=== PATIENT | male | born 1990 | race Caucasian/White ===

== ENCOUNTER 2018-12-18 10:17 | Emergency (ER) | payer SELFPAY ==
--- NOTE | 2018-12-18 10:26 | XR_ITS ---
XR forearm RT 2V HISTORY: Right arm pain and swelling ITS.REASON: pain ORDERING PHYSICIAN: Linh Sims APRN PATIENT AGE: 28 years COMPARISON: None FINDINGS: No obvious fracture, dislocation, lytic change or blastic change. Normal mineralization. Unremarkable soft tissues IMPRESSION: Negative forearm
[2018-12-18 10:27] VITALS: BP 122/81; PULSE 88; RESP 16; TEMP 36.6; O2SAT 97; BMI 20.7
--- NOTE | 2018-12-18 10:38 | HMH.EDUTC ---
[facility] [place]: Forearm injury Qualifiers: Encounter type: initial encounter Laterality: right Qualified Code(s): S59.911A - Unspecified injury of right forearm, initial encounter Disposition: Home, Self-Care Condition on Discharge: Good Instructions: How to Apply an Alton Wrap, Muscle Strain, DI for Forearm Muscle Strain, DI for Muscle Strain Additional Instructions: Rest, compress (with alton wrap) and elevate arm to help with pain and swelling *Over the counter motrin and/or Tylenol as directed on package for pain Do not stress arm or throw any softball until seen by Dr Britton and cleared to do so No heavy lifting until seen by Dr Britton Return if needed APPOINTMENT SundayNovember AT [address] [facility] Follow up with family doctor if needed If any life threatening symptoms straight to ER Referrals: Provider,MD Leanna [Primary Care Provider] - Marlyn Britton MD [Physician] - (Appointment SundayDecember 20 at [address] in Orth[address]ics with Dr Britton) Forms: Work/School Release Time of Disposition: 11:12 Medical Decision Making - M[place] Inquiry Pt receiving controlled substance: No Mulu[place] was queried for this patient: No Vital Signs: 12/18/18 10:27 Temperature 97.8 F Temperature Source Oral Pulse Rate [Right Radial] 88 Respiratory Rate 16 Blood Pressure [Right Arm] 122/81 Blood Pressure Mean [Right Arm] 94 02 Sat by Pulse Oximetry 97 - Radiology Data #1 Image Reviewed: Yes I have reviewed radiologist's interpretation IMPRESSION: Negative forearm - Physician Consults Physician Consulted: Austin Time: 11:07 Reason -: Orthopedic Eval/Care Comment/Response: Spoke with Dr Britton about patient and findings upon examination and agreed Patient to follow up with Dr Britton on Sunday morning in the office at 830 [facility] [place] - General Stated complaint: Rt arm pain Time Seen by Provider: 12/18/18 10:39 Mode of Arrival: Ambulatory Source of Information: Patient Limitations: No Limitations Description of Symptoms (Recalled from Triage Doc. 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 State that it has been swelling on and off State that today he noticed it looked bruised and was still hurting so he cam in to get it checked out State that he doesn't recall doing anything to hurt it but not sure. - Related Data Previous Rx's Medication Instructions Recorded quetiapine 100 mg tablet 100 mg PO QHS #30 tab 09/23/18 quetiapine 100 mg tablet 100 mg PO QHS #90 tab 10/17/18 Allergies Allergy/AdvReac Type Severity Reaction Status Date / Time No Known Allergies Allergy Verified 10/17/18 10:15 - Worker's Comp Is this a Worker's Comp case?: No [facility] History - Hepatitis A Screen Drug use history?: No High risk sexual behaviors?: No History of sexually transmitted infection?: No Currently employed?: No Childcare worker?: No Do you have indoor plumbing?: Yes Do you have electricity?: Yes Attestation statement:: This patient has been screened for Hepatitis A risk factors. I have reviewed the patient's past medical history: Yes Medical History: Denies:: Cancer, Diabetes Mellitus Type 1, Diabetes Mellitus Type 2, MRSA Amputation: No - Social History Smoking Status: Current every day smoker Tobacco Type: cigarettes # Packs/Day (cigarettes): 1
--- NOTE | 2018-12-18 10:44 | ED_ITS ---
[facility] [place]: Forearm injury Qualifiers: Encounter type: initial encounter Laterality: right Qualified Code(s): S59.911A - Unspecified injury of right forearm, initial encounter Disposition: Home, Self-Care Condition on Discharge: Good Instructions: How to Apply an Alton Wrap, Muscle Strain, DI for Forearm Muscle Strain, DI for Muscle Strain Additional Instructions: Rest, compress (with alton wrap) and elevate arm to help with pain and swelling *Over the counter motrin and/or Tylenol as directed on package for pain Do not stress arm or throw any softball until seen by Dr Britton and cleared to do so No heavy lifting until seen by Dr Britton Return if needed APPOINTMENT SundayNovember AT [address] [facility] Follow up with family doctor if needed If any life threatening symptoms straight to ER Referrals: Provider,MD Leanna [Primary Care Provider] - Marlyn Britton MD [Physician] - (Appointment SundayDecember 20 at [address] Orth[address]ics with [address] Britton) Forms: Work/School Release Time of Disposition: 11:12 Medical Decision Making - [place] Inquiry Pt receiving controlled substance: No Mulugeta was queried for this patient: No Vital Signs: 12/18/18 10:27 Temperature 97.8 F Temperature Source Oral Pulse Rate [Right Radial] 88 Respiratory Rate 16 Blood Pressure [Right Arm] 122/81 Blood Pressure Mean [Right Arm] 94 02 Sat by Pulse Oximetry 97 - Radiology Data #1 Image Reviewed: Yes I have reviewed radiologist's interpretation IMPRESSION: Negative forearm - Physician Consults Physician Consulted: Austin Time: 11:07 Reason -: Orthopedic Eval/Care Comment/Response: Spoke with Dr Britton about patient and findings upon examination and agreed Patient to follow up with Dr Britton on Sunday morning in the [place] 830 [facility] [place] General Stated complaint: Rt arm pain Time Seen by Provider: 12/18/18 10:39 Mode of Arrival: Ambulatory Source of Information: Patient Limitations: No Limitations Description of Symptoms (Recalled from Triage Doc. 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 State that it has been swelling on and off State that today he noticed it looked bruised and was still hurting so he cam in to get it checked out State that he doesn't recall doing anything to hurt it but not sure. - Related Data Previous Rx's Medication Instructions Recorded quetiapine 100 mg tablet 100 mg PO QHS #30 tab 09/23/18 quetiapine 100 mg tablet 100 mg PO QHS #90 tab 10/17/18 Allergies Allergy/AdvReac Type Severity Reaction Status Date / Time No Known Allergies Allergy Verified 10/17/18 10:15 - Worker's Comp Is this a W
[2018-12-18 11:17] VITALS: BP 122/81; PULSE 88; RESP 16; TEMP 36.6; O2SAT 97
== END 2018-12-18 11:18 | disposition home or self-care (01) ==
PROVIDERS: Emergency Provider Nurse Practitioner
DX: S59.911A Unspecified injury of right forearm, initial encounter (principal); X50.3XXA Overexertion from repetitive movements, initial encounter; Y93.64 Activity, baseball; Y92.328 Other athletic field as the place of occurrence of the external cause; F17.210 Nicotine dependence, cigarettes, uncomplicated
CPT/HCPCS: 73090; 99201

== ENCOUNTER 2021-03-18 09:54 | Emergency (ER) | payer OTHER, SELFPAY ==
[2021-03-18 10:25] VITALS: BP 115/54; PULSE 81; RESP 18; TEMP 36.8; O2SAT 98; BMI 21.7
--- NOTE | 2021-03-18 11:23 | HMH.EDUTC ---
[facility] [place] Disposition Clinical Impression: Viral syndrome Disposition: Home, Self-Care Condition on Discharge: Good Instructions: DI for Viral Syndrome, Ondansetron, Brompheniramine, DI for COVID-19 (Suspected or Confirmed ), Preventing the Spread of Coronavirus Discharge Instructions Additional Instructions: Drink plenty of fluids. Take tylenol or ibuprofen for pain or fever. Take the medications as directed. Finsh the amoxicillin that you are on. Follow up with your regular doctor. GO TO THE ER FOR ANY WORSENING SYMPTOMS Quarantine until you know the results of your covid-19 test. If it is positive, the health department should call you and give you further instructions about your length of Quarantine and other things. Notify your school or workplace of your results and follow their instructions regarding return to work/school. Prescriptions: Brompheniramine/Pseudoephed/Dm [Bromfed Dm Cough Syrup] 5 ml PO Q6HP PRN #240 ml PRN Reason: Cough Transmission Status: Received by [facility] Ondansetron [Zofran 4mg ODT] 4 mg PO DAILYP PRN #12 tab PRN Reason: Nausea Transmission Status: Received by [facility] Referrals: Provider,Referral, MD [Primary Care Provider] - Forms: Work/School Release Time of Disposition: 11:50 Medical Decision Making - Medical Records Medical records reviewed: Yes: I reviewed the patient's medical records. - [place] Inquiry Pt receiving controlled substance: No Vital Signs: 03/18/21 10:25 03/18/21 11:53 Temperature 98.2 F 98.2 F Temperature Source Oral Pulse Rate 81 Pulse Rate [Right Radial] 81 Respiratory Rate 18 18 Blood Pressure 115/54 L Blood Pressure [Right Arm] 115/54 L Blood Pressure Mean [Right Arm] 74 Blood Pressure Source [Right Arm] Automatic Cuff Blood Pressure Position [Right Arm] Sitting 02 Sat by Pulse Oximetry 98 Oxygen Delivery Method Room Air - Lab Data Lab Results 03/18/21 11:03: Chlamy pneumoniae PCR Not detected, Adenovirus (PCR) Not detected, B. pertussis DNA (PCR) Not detected, Coronavirus OC43 (PCR) Not detected, Coronavirus HKU1 (PCR) Not detected, Coronavirus 229E (PCR) Not detected, SARS-CoV-2 (PCR) Not detected, Coronavirus NL63 (PCR) Not detected, Human Metapneumovir PCR Not detected, Influenza A (H1) PCR Not detected, Influ A (H1N1/09) PCR Not detected, Influenza A (H3) PCR Not detected, Influenza Type A (PCR) Not detected, Influenza Type B (PCR) Not detected, M. pneumoniae (PCR) Not detected, Parainfluenza 1 (PCR) Not detected, Parainfluenza 2 (PCR) Not detected, Parainfluenza 3 (PCR) Not detected, Parainfluenza 4 (PCR) Not detected, RSV (PCR) Not detected, Entero/Rhino (PCR) Not detected 03/18/21 11:22: Strep Scn Rapid Clinic Negative [facility] [place] HPI - General Stated complaint: congestion, soa, body aches Time Seen by Provider: 03/18/21 11:23 Mode of Arrival: Ambulatory Source of Information: Patient Limitations: No Limitations Description of Symptoms (Recalled from Triage Doc. by RN): C/O congestion, muscle aches, SOA, reduced taste, diarrhea since Sunday HEENT Symptoms (Recalled from RN notes): Yes (congestion, reduced taste) Resp Symptoms (Recalled from RN notes): Yes (SOA) Skin Symptoms (Recalled from RN notes): No MS Symptoms (Recalled from RN notes): Yes (muscle aches) Functional Status (Recalled from RN notes): n/a - History of Present Illness Provider Complaint: He states that he started feeling bad earlier this week. At first he was having some chilling, body aches, and sinus pressure. He had a negative rapid covid-19 test done at home on 03/15. He then went to the clinic at [facility] and was diagnosed with a possible sinus infection. He was started on amoxicillin then. He states that since then, his body aches have worsened and he has began having diarrhea. He has a history of IBS, so he is not sure the diarrhea is very abnormal for him. He denies any documented fever. He has had chillin
[2021-03-18 11:36] LABS: Adenovirus,PCR Not Detected (NotDetected); Bordetella Pertussis Not Detected (NotDetected); Chlamydophila Pneumoniae, PCR Not Detected (NotDetected); Coronavirus 19, PCR Not Detected (NotDetected); Coronavirus 229E Not Detected (NotDetected); Coronavirus NL63 Not Detected (NotDetected); Coronavirus OC43 Not Detected (NotDetected); Coronovirus HKU1,PCR Not Detected (NotDetected); Human Metapneumovirus Not Detected (NotDetected); Influenza A, PCR Not Detected (NotDetected); Influenza AH1, 2009 Not Detected (NotDetected); Influenza AH1, PCR Not Detected (NotDetected); Influenza AH3,PCR Not Detected (NotDetected); Influenza B, PCR Not Detected (NotDetected); Mycoplasma Pneumoniae, PCR Not Detected (NotDetected); Parainfluenza 1, PCR Not Detected (NotDetected); Parainfluenza 2, PCR Not Detected (NotDetected); Parainfluenza 3, PCR Not Detected (NotDetected); Parainfluenza 4, PCR Not Detected (NotDetected); Respiratory Syncytial Virus Not Detected (NotDetected); Rhinovirus/Enterovirus Not Detected (NotDetected)
[2021-03-18 11:53] VITALS: BP 115/54; PULSE 81; RESP 18; TEMP 36.8; O2SAT 98
[2021-03-19 09:56] LABS: UTC Strep Screen (Rapid) Negative (Negative)
[2021-03-19 19:01] LABS: UTC Influenza A Antigen Negative (Negative)
[2021-03-19 19:02] LABS: UTC Influenza B Antigen Negative (Negative)
== END 2021-03-18 11:55 | disposition home or self-care (01) ==
PROVIDERS: Emergency Provider Nurse Practitioner Family
DX: B34.9 Viral infection, unspecified (principal); K58.0 Irritable bowel syndrome with diarrhea; F17.210 Nicotine dependence, cigarettes, uncomplicated; Z20.822 Contact with and (suspected) exposure to COVID-19
CPT/HCPCS: 87581; 87632; 87798; 87804; 87880; 99203; C9803; G0463; U0003; U0005

== ENCOUNTER 2021-08-02 10:28 | Emergency (ER) | payer OTHER, SELFPAY ==
[2021-08-02 12:00] VITALS: BP 116/79; PULSE 63; RESP 19; TEMP 37.1; O2SAT 98; BMI 21.4
[2021-08-02 12:30] LABS: UTC Influenza A Antigen Negative (Negative); UTC Influenza B Antigen Negative (Negative)
--- NOTE | 2021-08-02 12:31 | HMH.EDUTC ---
[facility] [place] Clinical Impression: Viral syndrome Disposition: Home, Self-Care Condition on Discharge: Good Instructions: DI for Viral Syndrome, DI for COVID-19 (Suspected or Confirmed ), Preventing the Spread of Coronavirus Discharge Instructions Additional Instructions: *Monitor Temp, Over the counter Motrin or Tylenol as directed/as needed Tylenol every 4 hours and Motrin every 6 hours (as long as your family doctor has told you that you can take it) for fever or pain. and straight to ER if unable to lower temp less than 101.0 after medication given *Warm salt water gargles may help to soothe the throat *Throat Lozenges *Warm fluids like tea with honey may help to soothe the throat *Sleep elevated *Humidifier/Vaporizer *Bromfed may cause drowsiness. Know how it effects you (your child) before driving, caring for small child, or sending your child to school. Not other antihistamines/allergy medications while taking bromfed Follow up IMMEDIATELY for new or worsening symptoms or no Noticeable improvement over the next 48-72 hours. 911 for difficulty breathing or swallowing You were tested for today for COVID19 your test result should be back in the next 24-72 hours, you may check your results on the [facility] my Health portal if you have trouble logging on you may call support to help you If you are positive someone from the hospital will be calling you Make sure to take your Vitamins Vit. C Vit D and Zinc if you can take them Prescriptions: Brompheniramine/Pseudoephed/Dm [Bromfed Dm Cough Syrup] 5 - 10 ml PO Q46H PRN #200 ml PRN Reason: Cough Transmission Status: Pending to [facility] Referrals: Provider,Referral, [Primary Care Provider] - As needed Forms: Work/School Release Time of Disposition: 12:38 Medical Decision Making - Mulu[place]a Inquiry Pt receiving controlled substance: No Mulugeta was queried for this patient: No Vital Signs: 08/02/21 12:00 Temperature 98.8 F Temperature Source Oral Pulse Rate [Right Brachial] 63 Respiratory Rate 19 Blood Pressure [Right Arm] 116/79 Blood Pressure Mean [Right Arm] 91 Blood Pressure Source [Right Arm] Automatic Cuff Blood Pressure Position [Right Arm] Sitting 02 Sat by Pulse Oximetry 98 Oxygen Delivery Method Room Air - Lab Data Lab results reviewed: Yes: I reviewed the patient's lab results. Lab Results 08/02/21 12:15: Influenza Type A Ag Negative, Influenza Type B Ag Negative Orders (Tests/Meds): ORDERS Category Date Time Status Covid-19 Nasal PCR ([facility]) Routine Lab 08/02/21 12:15 Ordered [facility] [place] HPI - General Stated complaint: cough, diarrhea, congestion, body aches Time Seen by Provider: 08/02/21 12:31 Mode of Arrival: Ambulatory Source of Information: Patient Limitations: No Limitations Description of Symptoms (Recalled from Triage Doc. by RN): PATIENT C/O CHILLS, BODY ACHES, COUGH, LOW-GRADE FEVER, CONGESTION, SINUS PRESSURE, DIARRHEA AND NAUSEA X 3 DAYS HEENT Symptoms (Recalled from RN notes): Yes Resp Symptoms (Recalled from RN notes): No Skin Symptoms (Recalled from RN notes): No MS Symptoms (Recalled from RN notes): No Functional Status (Recalled from RN notes): WNL - History of Present Illness Provider Complaint: Patient states that he started feeling bad about 3 days ago States that he has been having sinus congestion, bodyaches, chills, headache, diarrhea and low grade fever on and off State that today he was feeling achy all over and still not feeling well and felt like he may have the flu so he came in to get checked and tested - Related Data Previous Rx's Medication Instructions Recorded Brompheniramine/Pseudoephed/Dm 5 - 10 ml PO Q46H PRN #200 ml 08/02/21 [Bromfed Dm Cough Syrup] Allergies Allergy/AdvReac Type Severity Reaction Status Date / Time No Known Allergies Allergy Verified 03/15/21 13:19 - Worker's Comp Is this a Worker's Comp case?: No [facility] History - Hepatitis A Scree
[2021-08-02 12:40] VITALS: BP 116/79; PULSE 63; RESP 19; TEMP 37.1; O2SAT 98
== END 2021-08-02 12:43 | disposition home or self-care (01) ==
PROVIDERS: Emergency Provider Nurse Practitioner
DX: R05.9 Cough, unspecified (principal); Z20.822 Contact with and (suspected) exposure to COVID-19; F17.210 Nicotine dependence, cigarettes, uncomplicated; B34.9 Viral infection, unspecified; R19.7 Diarrhea, unspecified
CPT/HCPCS: 87804; 99202; C9803; G0463; U0003; U0005

== ENCOUNTER 2022-02-03 11:43 | Emergency (ER) | payer OTHER, SELFPAY ==
[2022-02-03 11:45] VITALS: BP 133/72; PULSE 76; RESP 19; TEMP 36.6; O2SAT 98; BMI 23.1
--- NOTE | 2022-02-03 12:02 | HMH.EDUTC ---
[facility] [place] Disposition Clinical Impression: Sinusitis Qualifiers: Sinusitis location: unspecified location Chronicity: unspecified Qualified Code(s): J32.9 - Chronic sinusitis, unspecified Disposition: Home, Self-Care Condition on Discharge: Good Instructions: Sinusitis, DI for Sinusitis Additional Instructions: *Monitor Temp, Over the counter Motrin or Tylenol as directed/as needed Tylenol every 4 hours and Motrin every 6 hours (as long as your family doctor has told you that you can take it) for fever or pain. and straight to ER if unable to lower temp less than 101.0 after medication given *Warm salt water gargles may help to soothe the throat *Throat Lozenges *Warm fluids like tea with honey may help to soothe the throat *Sleep elevated *Humidifier/Vaporizer Take medication as prescribed Return if needed Follow up IMMEDIATELY for new or worsening symptoms or no Noticeable improvement over the next 48-72 hours. 911 for difficulty breathing or swallowing Prescriptions: methylPREDNISolone [Medrol 4mg tab] 4 mg PO DIRECTED #21 tab Transmission Status: Pending to [facility] Azithromycin [Z-Froy 250mg Tab] 250 mg PO DIRECTED #6 tab Transmission Status: Pending to [id number] Referrals: Provider,Referral, MD [Primary Care Provider] - As needed Forms: Work/School Release Medical Decision Making - M[place] Inquiry Pt receiving controlled substance: No Mulu[place] was queried for this patient: No Vital Signs: 02/03/22 11:45 Temperature 97.8 F Temperature Source Oral Pulse Rate [Right Brachial] 76 Respiratory Rate 19 Blood Pressure [Right Arm] 133/72 Blood Pressure Mean [Right Arm] 92 Blood Pressure Source [Right Arm] Automatic Cuff Blood Pressure Position [Right Arm] Sitting 02 Sat by Pulse Oximetry 98 Oxygen Delivery Method Room Air [facility] [place] HPI - General Stated complaint: nasal congestion, cough Time Seen by Provider: 02/03/22 12:02 Mode of Arrival: Ambulatory Source of Information: Patient Limitations: No Limitations Description of Symptoms (Recalled from Triage Doc. by RN): PATIENT C/O CONGESTION AND COUGH SINCE YESTERDAY HEENT Symptoms (Recalled from RN notes): No Resp Symptoms (Recalled from RN notes): Yes Skin Symptoms (Recalled from RN notes): No MS Symptoms (Recalled from RN notes): No Functional Status (Recalled from RN notes): WNL - History of Present Illness Provider Complaint: Patient states that he has been having sinus pain and pressure on and off for over a week that got worse yesterday along with cough for several days State that today he was having pressure behind his eyes and drainage in the back of his throat States that he wanted to come in and get checked out States that he took two COVID test and the was negative - Related Data Previous Rx's Medication Instructions Recorded Azithromycin [Z-Froy 250mg Tab] 250 mg PO DIRECTED #6 tab 02/03/22 methylPREDNISolone [Medrol 4mg 4 mg PO DIRECTED #21 tab 02/03/22 tab] Allergies Allergy/AdvReac Type Severity Reaction Status Date / Time No Known Allergies Allergy Verified 03/15/21 13:19 - Worker's Comp Is this a Worker's Comp case?: No [facility] History - Hepatitis A Screen Attestation statement:: This patient has been screened for Hepatitis A risk factors. I have reviewed the patient's past medical history: Yes Medical History: Denies:: Cancer, Diabetes Mellitus Type 1, Diabetes Mellitus Type 2, MRSA Other Surgeries: Yes: No Previous Surgery Amputation: No - Social History Smoking Status: Current every day smoker Tobacco Type: cigarettes # Packs/Day (cigarettes): 1 Alcohol Intake: never Alcohol Intake Frequency:: holidays/special occasions only Substance Use Type: marijuana Occupational Status: other Family Hx:: No significant family history ROS Obtained: Yes All systems reviewed & no additional complaints, Yes Systems reviewed as appropriate & no additional complaints - Con
[2022-02-03 12:08] VITALS: BP 133/72; PULSE 76; RESP 19; TEMP 36.6; O2SAT 98
== END 2022-02-03 12:15 | disposition home or self-care (01) ==
PROVIDERS: Emergency Provider Nurse Practitioner
DX: J32.9 Chronic sinusitis, unspecified (principal)
CPT/HCPCS: 99212; G0463

== ENCOUNTER 2022-04-10 10:51 | Emergency (ER) | payer OTHER, SELFPAY ==
[2022-04-10 10:58] VITALS: BP 149/77; PULSE 88; RESP 17; TEMP 36.6; O2SAT 100; BMI 19.8
[2022-04-10 11:03] VITALS: BP 149/77; PULSE 88; RESP 17; TEMP 36.6; O2SAT 100; BMI 19.7
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
[2022-04-10 11:59] VITALS: BP 149/77; PULSE 88; RESP 17; TEMP 36.6
== END 2022-04-10 12:01 | disposition home or self-care (01) ==
LOC: ER 11:00 → UTC 11:00
PROVIDERS: Emergency Provider Nurse Practitioner
DX: M54.41 Lumbago with sciatica, right side (principal); F17.210 Nicotine dependence, cigarettes, uncomplicated; Z79.1 Long term (current) use of non-steroidal anti-inflammatories (NSAID); Z79.52 Long term (current) use of systemic steroids
CPT/HCPCS: 96372; 99213; G0463

== ENCOUNTER 2022-05-04 11:00 | Outpatient (RCR) | payer OTHER, SELFPAY ==
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
== END 2022-05-04 11:05 | disposition home or self-care (01) ==
LOC: PT 11:00
PROVIDERS: Visit Provider Nurse Practitioner Family
DX: M54.41 Lumbago with sciatica, right side (principal)
CPT/HCPCS: 20560; 97010; 97012; 97014; 97110; 97140; 97163; G0283

== ENCOUNTER 2022-05-25 19:54 | Emergency (ER) | payer OTHER, SELFPAY ==
[2022-05-25 19:56] VITALS: BP 132/66; PULSE 115; RESP 18; TEMP 38.2; O2SAT 97; BMI 20.7
--- NOTE | 2022-05-25 21:04 | HMH.EDBACK ---
Discharge Plan Disposition Patient Disposition: Home, Self-Care Chief Complaint: Back Pain/Injury Prescriptions Prescriptions: No Action azithromycin 250 MG tablet 250 mg PO DIRECTED Qty: 6 0RF Rx Instructions: Take two (2) tablets on day #1, then one (1) tablet day #2 thru #5 methylprednisolone 4 MG tablet 4 mg PO DIRECTED Qty: 21 0RF Rx Instructions: Take as directed on package instructions ibuprofen 600 mg tablet 600 mg PO Q6HP PRN (Reason: Moderate Pain) Qty: 20 0RF methylprednisolone [Medrol (Froy)] 4 mg tablets,dose pack See Rx Instructions .Route .COMPLEX 6 Days Qty: 21 0RF Rx Instructions: taper pack; Referrals Follow up/Referrals: Donavon Stanley MD [Primary Care Provider] - See instructions Clinical Impressions Clinical Impression: Lumbar radiculopathy, COVID-19 Instructions Patient Instructions: DI for Low Back Pain, DI for COVID-19 (Suspected or Confirmed ) Discharge ED Provider: Mike Henderson Back Pain HPI General Chief Complaint: Back Pain/Injury Stated Complaint: AO05/25/22 fall back pain Time Seen by Provider: 05/25/22 21:04 Mode of Arrival: Ambulatory Source of Information: Patient and Medical Record Limitations: No Limitations Description of Symptoms (Recalled from ER Triage Doc. by RN): pt states that he has had sciatic pain since apr and he has had another flare up tonight and wants to know what is going on with his back because he can not straighten up without intense pain History of Present Illness HPI Narrative: pt with ongoing back pain for weeks and has pending mri on sunday- pt with no fever/rash or cauda equina sx- does rad to lower ext - no acute trauma - has seen [facility] and pcp - MD Complaint: back pain Onset (ago): day(s) Duration: intermittent Similar Symptoms Previously: Yes Location: lumbar spine Severity: severe Radiation: left leg Associated symptoms: denies other symptoms Related Data Previous Rx's Medication Instructions Recorded azithromycin 250 mg tablet 250 mg PO DIRECTED #6 tabs 02/03/22 methylprednisolone 4 mg tablet 4 mg PO DIRECTED #21 tabs 02/03/22 ibuprofen 600 mg tablet 600 mg PO Q6HP PRN Moderate Pain 04/10/22 #20 tabs methylprednisolone 4 mg tablets in See Rx Instructions .Route 10/10/22 a dose pack (Medrol (Froy)) .COMPLEX 6 days #21 tabs Allergies Allergy/AdvReac Type Severity Reaction Status Date / Time No Known Allergies Allergy Verified 04/10/22 11:10 [facility] Social History Smoking Status: Current every day smoker tobacco type: cigarettes packs per day: 1 alcohol intake: never substance use type: marijuana current occupational status: other Travel in the last 8 weeks: None number of children: 1 ROS Obtained: Yes All systems reviewed & no additional complaints except as documented Physical Exam General General appearance: alert Head Head exam: normocephalic Eye Eye exam: Present PERRL and EOMI ENT ENT exam: Present mucous membranes moist Neck Neck exam: Present trachea midline Respiratory Respiratory exam: Absent respiratory distress Cardiovascular Cardiovascular exam: Present regular rate Abdominal Exam Abdominal exam: Present soft; Absent tenderness Extremities Exam Extremities exam: Present full ROM Back Exam Back exam: Present tenderness Neurological Exam Neurological exam: Present alert, oriented X3, CN II-XII intact and reflexes normal; Absent motor sensory deficit Psychiatric Psychiatric exam: Present normal affect Skin Skin exam: Absent rash Medical Decision Making Medical Records Medical records reviewed: Yes I reviewed the patient's medical records. [place] Inquiry Pt receiving controlled substance: No Vital Signs: 05/25/22 19:56 Temperature 100.7 F H Temperature Source Oral Pulse Rate [Left] 115 H Respiratory Rate 18 Blood Pressure [Right Arm] 132/66 Blood Pressure Mean [Right
[2022-05-25 21:12] LABS: Influenza A, PCR Not Detected (NotDetected); Influenza B, PCR Not Detected (NotDetected)
[2022-05-25 21:41] LABS: Coronavirus 19, PCR Detected (NotDetected)
[2022-05-25 21:57] VITALS: BP 130/70; PULSE 100; RESP 18; TEMP 37.8; O2SAT 97
== END 2022-05-25 22:01 | disposition home or self-care (01) ==
PROVIDERS: Emergency Provider Emergency Medicine; PCP Internal Medicine Adolescent Medicine
DX: U07.1 COVID-19 (principal); M54.16 Radiculopathy, lumbar region; M54.40 Lumbago with sciatica, unspecified side; F17.210 Nicotine dependence, cigarettes, uncomplicated; Z79.1 Long term (current) use of non-steroidal anti-inflammatories (NSAID); Z79.52 Long term (current) use of systemic steroids; W19.XXXA Unspecified fall, initial encounter
CPT/HCPCS: 99283; C9803; U0003; U0005

== ENCOUNTER → 2022-05-29 16:36 | Outpatient (CLI) | payer OTHER, SELFPAY ==
--- NOTE | 2022-05-29 16:41 | MR_ITS ---
PROCEDURE INFORMATION: Exam: MR Lumbar Spine Without Contrast Exam date and time: 05/29/2022 4:49 PM Age: 32 years old Clinical indication: Low back pain; Additional info: Acute bilateral low back pain with R sided sciatia. Low back pain. Right leg pain, numbness, and tingling. Symptoms [id number]. No injury or trauma. TECHNIQUE: Imaging protocol: Magnetic resonance imaging of the lumbar spine without contrast. COMPARISON: No relevant prior studies available. FINDINGS: Bones/joints: Heterogeneity of the osseous structures on T1 weighted sequence may reflect an element of red marrow reconversion or recruitment. No fracture. Normal alignment. Spinal cord: Visualized cord, conus medullaris and cauda equina are unremarkable without compression. L1-L2: No significant disc disease. No significant spinal canal stenosis. No neural foraminal stenosis. L2-L3: No significant disc disease. No significant spinal canal stenosis. No neural foraminal stenosis. L3-L4: No significant disc disease. No significant spinal canal stenosis. No neural foraminal stenosis. L4-L5: No significant disc disease. No significant spinal canal stenosis. No neural foraminal stenosis. L5-S1: Disc dehydration and loss of disc height. No significant spinal canal stenosis. Mild bilateral foraminal stenosis due to loss of disc height, posterolateral disc bulge and degenerative facet arthropathy. Posterolateral disc bulge may exert slight mass effect on the exiting L5 nerve roots. Soft tissues: Unremarkable. IMPRESSION: Mild bilateral foraminal stenosis at L5-S1. Posterolateral disc bulge may exert slight mass effect on the exiting L5 nerve roots. Heterogeneity of the osseous structures on T1 weighted sequence may reflect an element of red marrow reconversion or recruitment.
== END ==
LOC: RAD 16:37
PROVIDERS: Visit Provider Nurse Practitioner Family
DX: M54.41 Lumbago with sciatica, right side (principal)
CPT/HCPCS: 72148; 76376

== ENCOUNTER 2022-11-17 15:21 | Emergency (ER) | payer SELFPAY ==
[2022-11-17 15:24] VITALS: BP 131/83; PULSE 73; RESP 16; TEMP 36.9; O2SAT 98; BMI 21.5
[2022-11-17 15:36] VITALS: BP 131/83; PULSE 79; O2SAT 99
--- NOTE | 2022-11-17 15:51 | HMH.EDGENADL ---
Discharge Plan Disposition Patient Disposition: Home, Self-Care Prescriptions Prescriptions: New quetiapine [Seroquel] 50 mg tablet 50 mg PO DAILY 30 Days Qty: 30 0RF No Action azithromycin 250 MG tablet 250 mg PO DIRECTED Qty: 6 0RF Rx Instructions: Take two (2) tablets on day #1, then one (1) tablet day #2 thru #5 methylprednisolone 4 MG tablet 4 mg PO DIRECTED Qty: 21 0RF Rx Instructions: Take as directed on package instructions ibuprofen 600 mg tablet 600 mg PO Q6HP PRN (Reason: Moderate Pain) Qty: 20 0RF methylprednisolone [Medrol (Froy)] 4 mg tablets,dose pack See Rx Instructions .Route .COMPLEX 6 Days Qty: 21 0RF Rx Instructions: taper pack; Referrals Follow up/Referrals: Donavon Stanley MD [Primary Care Provider] - See instructions Activity Restrictions/Add. Instructions Additional Instructions/Restrictions: Please follow-up with John Logan on January 04 as previously instructed and return to the emergency department any suicidal thoughts homicidal thoughts or auditory or visual hallucinations Clinical Impressions Clinical Impression: Depression, Anxiety Discharge ED Provider: Marleny Quinteor General Adult HPI General Chief complaint: Psychiatric Symptoms Stated complaint: Needs Medication Time Seen by Provider: 11/17/22 15:51 Mode of Arrival: Ambulatory Source of Information: Patient Limitations: No Limitations Description of Symptoms (Recalled from ER Triage Doc. by RN): 32 yo M presents to ed for medication refill . pt reports that he has been in a dark place recently and has an appt scheduled with john logan on january 04. pt states in 2019 he was prescribed a medication from john that was for anxiety/depression. pt states he did not take medicaiton no longer than a few weeks. pt unsure of name of medicine. pt states that he does not have any suicidal plans but has had thoughts approx 1 month ago. pts SO at bedside. History of Present Illness HPI narrative: Patient is a 32-year-old male followed by John Logan for depression and anxiety and bipolar disorder presents today with request for medication refill. States that he has been followed for chronic symptoms since 2019. He was unsure as to exactly what medication he was started on but he states that he has had a lot of relationship issues recently and is having increasing depression and anxiety which has been affecting his family and that he would like to be restarted on his medication. He called her office today and then called Dr. Clements's office and they said to come to the emergency department. He has a appointment that is scheduled on January 04 for follow-up. He is currently not suicidal homicidal or having any auditory visual hallucinations. Related Data Previous Rx's Medication Instructions Recorded azithromycin 250 mg tablet 250 mg PO DIRECTED #6 tabs 02/03/22 methylprednisolone 4 mg tablet 4 mg PO DIRECTED #21 tabs 02/03/22 ibuprofen 600 mg tablet 600 mg PO Q6HP PRN Moderate Pain 04/10/22 #20 tabs methylprednisolone 4 mg tablets in See Rx Instructions .Route 04/10/22 a dose pack (Medrol (Froy)) .COMPLEX 6 days #21 tabs quetiapine 50 mg tablet (Seroquel) 50 mg PO DAILY 30 days #30 tabs 11/17/22 Allergies Allergy/AdvReac Type Severity Reaction Status Date / Time No Known Allergies Allergy Verified 04/10/22 11:10 [facility] Disclaimer: The information contained in this section may have been updated after the patient was seen, as this information can be updated by other users. Social History Smoking Status: Current every day smoker tobacco type: cigarettes packs per day: 1 alcohol intake: never substance use type: marijuana current occupational status: other Travel in the last 8 weeks: None number of children: 1 ROS Obtained: Yes All systems reviewed & no additional complaints except as documented P
[2022-11-17 16:00] VITALS: PULSE 67; O2SAT 97
[2022-11-17 16:30] VITALS: PULSE 65; O2SAT 96
[2022-11-17 16:39] VITALS: BP 131/83; PULSE 79; RESP 16; TEMP 36.9
== END 2022-11-17 16:40 | disposition home or self-care (01) ==
PROVIDERS: Emergency Provider Student in an Organized Health Care Education/Training Program; PCP Internal Medicine Adolescent Medicine
DX: F31.9 Bipolar disorder, unspecified (principal); F41.9 Anxiety disorder, unspecified; F17.210 Nicotine dependence, cigarettes, uncomplicated
CPT/HCPCS: 99283; 99284

== ENCOUNTER 2022-11-25 20:35 | Emergency (ER) | payer SELFPAY ==
[2022-11-25] VITALS (7 sets, daily range): BP systolic 103–148; BP diastolic 67–76; PULSE 62–82; RESP 16–18; TEMP 37.1–37.2; O2SAT 94–98; BMI 21.8
[2022-11-25 20:48] LABS: Coronavirus 19, PCR Not Detected (NotDetected); Influenza A, PCR Not Detected (NotDetected); Influenza B, PCR Not Detected (NotDetected)
--- NOTE | 2022-11-25 20:54 | CT_ITS ---
PROCEDURE INFORMATION: Exam: CTA Chest With Contrast Exam date and time: 11/25/22 09:23 PM Age: 32 years old Clinical indication: Shortness of breath; Additional info: SOA TECHNIQUE: Imaging protocol: Computed tomographic angiography of the chest with contrast. Exam focused on the arteries. 3D rendering (Not supervised by radiologist): MIP and/or 3D reconstructed images were created by the technologist. Radiation optimization: All CT scans at this facility use at least one of these dose optimization techniques: automated exposure control; mA and/or kV adjustment per patient size (includes targeted exams where dose is matched to clinical indication); or iterative reconstruction. Contrast material: ISOVUE; Contrast volume: 70 ml; Contrast route: INTRAVENOUS (IV); REPORTING DATA: Count of CT and Cardiac NM exams in prior 12 months: This patient has received 0 known CTs and 0 known cardiac nuclear medicine studies in the 12 months prior to the current study. COMPARISON: CR XR CHEST 2V 11/25/22 09:09 PM FINDINGS: Pulmonary arteries: Normal. No pulmonary emboli. Aorta: Unremarkable. No aortic aneurysm. No aortic dissection. Lungs: Unremarkable. No consolidation. No masses. Pleural spaces: Unremarkable. No pneumothorax. No pleural effusion. Heart: Unremarkable. No cardiomegaly. No pericardial effusion. Lymph nodes: Unremarkable. No enlarged lymph nodes. Bones/joints: Unremarkable. No acute fracture. Soft tissues: Unremarkable. IMPRESSION: 1. No acute findings. 2. No CT evidence of pulmonary embolus.
[2022-11-25 21:01] LABS: Basophils % 0.5 % (0.1-2.0); Eosinophils # 0.2 K/mm3 (0.0-0.4); Eosinophils % 2.6 % (0.1-12.0); Hematocrit 48.4 % (42.0-52.0); Lymphocytes # 2.7 K/mm3 (0.7-4.5); Lymphocytes % 30.8 % (10-50); Mean Corpuscular HGB Conc 33.1 g/dL (31.8-35.4); Mean Corpuscular Hemoglobin 31.5 pg (27.0-31.2); Mean Corpuscular Volume 95.3 fl (80-94); Monocytes # 0.4 K/mm3 (0.1-1.0); Monocytes % 4.6 % (1.7-9.3); Neutrophils # 5.4 K/mm3 (1.8-7.8); Neutrophils % 61.4 % (37.0-80.0); Platelet Count 171 K/mm3 (142-424); Red Blood Count 5.08 M/mm3 (4.60-6.20); Red Cell Distribution Width 13.5 % (11.5-17.5); White Blood Count 8.8 K/mm3 (4.8-10.8)
--- NOTE | 2022-11-25 21:01 | XR_ITS ---
PROCEDURE INFORMATION: Exam: XR Chest Exam date and time: 11/25/22 09:09 PM Age: 32 years old Clinical indication: Shortness of breath; Additional info: SOA TECHNIQUE: Imaging protocol: Radiologic exam of the chest. Views: 2 views. COMPARISON: CR CXR2V XR chest 2V 02/22/18 10:24 AM FINDINGS: Lungs: Unremarkable. No consolidation. Pleural spaces: Unremarkable. No pleural effusion. No pneumothorax. Heart/Mediastinum: Unremarkable. No cardiomegaly. Bones/joints: Unremarkable. IMPRESSION: No acute findings.
--- NOTE | 2022-11-25 21:05 | HMH.EDSOB ---
Discharge Plan Disposition Patient Disposition: Home, Self-Care Prescriptions Prescriptions: New prednisone [prednisone] 20 mg tablet 20 mg PO BID Qty: 10 0RF levofloxacin 500 mg tablet 500 mg PO DAILY Qty: 7 0RF No Action azithromycin 250 MG tablet 250 mg PO DIRECTED Qty: 6 0RF Rx Instructions: Take two (2) tablets on day #1, then one (1) tablet day #2 thru #5 methylprednisolone 4 MG tablet 4 mg PO DIRECTED Qty: 21 0RF Rx Instructions: Take as directed on package instructions ibuprofen 600 mg tablet 600 mg PO Q6HP PRN (Reason: Moderate Pain) Qty: 20 0RF methylprednisolone [Medrol (Froy)] 4 mg tablets,dose pack See Rx Instructions .Route .COMPLEX 6 Days Qty: 21 0RF Rx Instructions: taper pack; quetiapine [Seroquel] 50 mg tablet 50 mg PO DAILY 30 Days Qty: 30 0RF Referrals Follow up/Referrals: Donavon Stanley MD [Primary Care Provider] - See instructions Clinical Impressions Clinical Impression: Bronchitis, Anterior pleuritic pain Instructions Patient Instructions: DI for Shortness of Breath Discharge ED Provider: Santiago (ED)Mike Resp/SOB HPI General Chief Complaint: Shortness of Breath/Dyspnea Stated Complaint: SOA cough body aches Time Seen by Provider: 11/25/22 21:05 Mode of Arrival: Ambulatory Source of Information: Patient and Medical Record Limitations: No Limitations Description of Symptoms (Recalled from ER Triage Doc. by RN): Pt arrives via private vehicle c c /o cough, wheezing and congestion for the prior 3 days. Denies fever. States that today he began having severe rib pain as well. History of Present Illness over the last 3 days prod cough and congestion with rt sided pleuritic pain Complaint: shortness of breath, cough, pain with inspiration and chest pain Onset (ago): day(s) Severity: moderate Consistency/Duration: intermittent Exacerbating factors: inspiration Associated symptoms: denies other symptoms Treatment prior to arrival: none Related Data Home oxygen amount: none Previous Rx's Medication Instructions Recorded azithromycin 250 mg tablet 250 mg PO DIRECTED #6 tabs 02/03/22 methylprednisolone 4 mg tablet 4 mg PO DIRECTED #21 tabs 02/03/22 ibuprofen 600 mg tablet 600 mg PO Q6HP PRN Moderate Pain 04/10/22 #20 tabs methylprednisolone 4 mg tablets in See Rx Instructions .Route 04/10/22 a dose pack (Medrol (Froy)) .COMPLEX 6 days #21 tabs quetiapine 50 mg tablet (Seroquel) 50 mg PO DAILY 30 days #30 tabs 11/17/22 levofloxacin 500 mg tablet 500 mg PO DAILY #7 tabs 11/25/22 prednisone 20 mg tablet 20 mg PO BID #10 tabs 11/25/22 Allergies Allergy/AdvReac Type Severity Reaction Status Date / Time No Known Allergies Allergy Verified 04/10/22 11:10 [facility] Disclaimer: The information contained in this section may have been updated after the patient was seen, as this information can be updated by other users. Social History Smoking Status: Current every day smoker tobacco type: cigarettes packs per day: 1 alcohol intake: never substance use type: marijuana current occupational status: other Travel in the last 8 weeks: None number of children: 1 ROS Obtained: Yes All systems reviewed & no additional complaints except as documented Physical Exam General General appearance: alert Head Head exam: normocephalic Eye Eye exam: Present PERRL and EOMI ENT ENT exam: Present mucous membranes moist Neck Neck exam: Present trachea midline Respiratory Respiratory exam: Present normal lung sounds bilaterally; Absent respiratory distress Cardiovascular Cardiovascular exam: Present regular rate; Absent systolic murmur Abdominal Exam Abdominal exam: Present soft; Absent tenderness Extremities Exam Extremities exam: Present full ROM Neurological Exam Neurological exam: Present alert, oriented X3 and CN II-XII intact; Absent motor sensory
[2022-11-25 21:06] LABS: Alanine Aminotransferase 24 U/L (12-78); Albumin Level 4.8 g/dl (3.5-5.0); Albumin/Globulin Ratio 1.7 (1.1-1.8); Alkaline Phosphatase 79 U/L (38-126); Anion Gap 16.3 mEq/L (5-15); Aspartate Amino Transferase 31 U/L (17-59); Bilirubin,Total 0.4 mg/dl (0.2-1.3); Blood Urea Nitrogen 14 mg/dl (9-20); Carbon Dioxide 28 mmol/L (22.0-30.0); Chloride 100 mmol/L (98-107); Creatinine Clearance Estimated 85 mL/min (50-200); Estimated Glomerular Filt Rate 71 ml/min (>60); GFR (African American) 85 ML/MIN (>60); Globulin 2.9 g/dL (1.3-3.2); Glucose 91 mg/dl (74-100); Potassium 4.3 mmoL/L (3.5-5.1); Sodium 140 mmol/L (136-145); Total Protein,Serum 7.7 g/dl (6.3-8.2)
--- NOTE | 2022-11-25 21:09 | PC.NURSE ---
Dr. Henderson at to speak with pt
--- NOTE | 2022-11-25 21:18 | PC.NURSE ---
patient gone to RAD at this time.
[2022-11-25 21:23] LABS: C-Reactive Protein 1.4 mg/L (0-4)
[2022-11-25 21:25] LABS: Procalcitonin 0.049 ng/mL (0.0-2.0)
[2022-11-25 21:27] LABS: Erythrocyte Sedimentation Rate 2 mm/hr (0-15)
--- NOTE | 2022-11-25 23:04 | PC.NURSE ---
Dr. Henderson at to update pt/family
== END 2022-11-25 23:17 | disposition home or self-care (01) ==
PROVIDERS: Emergency Provider Emergency Medicine; PCP Internal Medicine Adolescent Medicine
DX: J20.9 Acute bronchitis, unspecified (principal); R07.81 Pleurodynia; F17.210 Nicotine dependence, cigarettes, uncomplicated
CPT/HCPCS: 71046; 71275; 80053; 84145; 85025; 85651; 86140; 87636; 96361; 96374; 96375; 99284; 99285; C9803; Q9967; U0003; U0005

== ENCOUNTER 2023-07-10 10:39 | Emergency (ER) | payer OTHER, BC, SELFPAY ==
[2023-07-10 10:40] VITALS: BP 126/75; PULSE 87; RESP 18; TEMP 36.5; O2SAT 99; BMI 20.7
--- NOTE | 2023-07-10 10:54 | EXP.UTC ---
Discharge Plan Disposition Patient Disposition: Home, Self-Care Condition: Good Prescriptions Prescriptions: New [id number] [Bromfed DM] 2-30-10 mg/5 mL Syrup 5 ml PO Q6H PRN (Reason: Cough) Qty: 240 0RF ondansetron 4 mg Tablet,Disintegrating 4 mg PO Q8H PRN (Reason: Nausea) Qty: 12 0RF No Action hydroxyzine pamoate [Vistaril] 25 mg capsule 25 mg PO QHS PRN (Reason: for sleep) Qty: 30 1RF Vraylar 1.5 mg capsule 1.5 mg PO DAILY Qty: 30 1RF Referrals Follow up/Referrals: Donavon Stanley MD [Primary Care Provider] - See instructions Activity Restrictions/Add. Instructions Additional Instructions/Restrictions: Drink plenty of fluids. Take tylenol or ibuprofen for pain or fever. Take the medications as directed. Follow up with your regular doctor. GO TO THE ER FOR ANY WORSENING SYMPTOMS Clinical Impressions Clinical Impression: Viral syndrome, Exposure to 2019 novel coronavirus Stand Alone Forms Stand Alone Forms: Work/School Release Instructions Patient Instructions: DI for Viral Syndrome, Coronavirus Disease 2019, Preventing the Spread of Coronavirus Discharge Instructions Discharge ED Provider: Aldo Gandara [facility] General Stated complaint: body aches, fever, vomiting Time Seen by Provider: 07/10/23 10:54 History of Present Illness Provider Complaint: He states that for the past 1 day he has had fever, chills, malaise, n/v, and a cough. He has been exposed to covid-19 and influenza. Related Data Previous Rx's Medication Instructions Recorded cariprazine 1.5 mg capsule 1.5 mg PO DAILY #30 caps 02/21/23 (Vraylar) hydroxyzine pamoate 25 mg capsule 25 mg PO QHS PRN for sleep #30 caps 02/21/23 (Vistaril) yrjppgpgziyboek-cpbajqzhkeheolp-DW 5 ml PO Q6H PRN Cough #240 mL 07/10/23 2 mg-30 mg-10 mg/5 mL oral syrup (Bromfed DM) ondansetron 4 mg disintegrating 4 mg PO Q8H PRN Nausea #12 tabs 07/10/23 tablet Allergies Allergy/AdvReac Type Severity Reaction Status Date / Time No Known Allergies Allergy Verified 07/10/23 11:00 [facility] Disclaimer: The information contained in this section may have been updated after the patient was seen, as this information can be updated by other users. Medical History (Updated 07/10/23 @ 11:33 by Aldo Gandara APRN) Bipolar II disorder Generalized anxiety disorder Insomnia Social History Smoking Status: Current every day smoker tobacco type: cigarettes packs per day: 1 alcohol intake: never substance use type: marijuana current occupational status: other Travel in the last 8 weeks: None number of children: 1 ROS Obtained: Yes All systems reviewed & no additional complaints except as documented Constitutional Constitutional: Reports chills and Reports fever(s) Eyes Eyes: Denies eye discharge ENT Ears, Nose, Mouth, and Throat: Reports as per HPI Cardiovascular Cardiovascular: Denies chest pain Respiratory Respiratory: Denies chest congestion and Reports cough Gastrointestinal Gastrointestingal: Reports nausea; Denies abdominal pain, constipation, cramping, diarrhea or vomiting Musculoskeletal Musculoskeletal: Denies arthralgias Integumentary/Breasts Skin/Breast: Denies rash Neurologic Neurologic: Denies paresthesias Physical Exam General General appearance: alert and in no apparent distress Head Head exam: atraumatic, normocephalic and normal inspection Eye Eye exam: Present normal appearance, PERRL and EOMI ENT ENT exam: Present normal exam, normal oropharynx, mucous membranes moist, TM's normal bilaterally and normal external ear exam Neck Neck exam: Present normal inspection, full ROM and trachea midline; Absent meningismus or lymphadenopathy Chest Chest inspection: Present normal inspection and symmetric chest wall rise; Absent tenderness Respiratory Respiratory exam: Present normal lung sounds bilaterally; Absent respiratory distress Cardiovascular Cardiovascular exam: Present regular rate and normal rhythm; Absent JVD Abdominal Exam Abdominal exam: Present soft and normal bowel sounds; Absent distention, tenderness or guarding Extremities Exam Extremities exam: Present normal inspection, full ROM and normal capillary refill; Absent calf tenderness Back Exam Back exam: Present normal inspection; Absent tenderness Neurological Exam Neurological exam: Present alert and oriented X3 Psychiatric Psychiatric exam: Present normal affect and normal mood Skin Skin exam: Present warm, dry, intact and normal color Lymphatic Lymphatic Findings: no adenopathy Medical Decision Making Medical Records Medical records reviewed: No I reviewed the patient's medical records. [place] Inquiry Pt receiving controlled substance: No Lab Data Lab results reviewed: Yes I reviewed the patient's lab results.
[2023-07-10 11:06] LABS: UTC Influenza A Antigen Negative (Negative); UTC Influenza B Antigen Negative (Negative)
[2023-07-10 11:59] VITALS: BP 126/75; PULSE 87; RESP 18; TEMP 36.5; O2SAT 99
== END 2023-07-10 11:45 | disposition home or self-care (01) ==
PROVIDERS: Emergency Provider Nurse Practitioner Family; PCP Internal Medicine Adolescent Medicine
DX: R05.9 Cough, unspecified (principal); R11.2 Nausea with vomiting, unspecified; R50.9 Fever, unspecified; M79.18 Myalgia, other site; R53.81 Other malaise; B34.9 Viral infection, unspecified; F17.210 Nicotine dependence, cigarettes, uncomplicated; Z20.822 Contact with and (suspected) exposure to COVID-19
CPT/HCPCS: 87635; 87804; 99212; 99214; G0463

== ENCOUNTER 2023-09-26 09:33 | Emergency (ER) | payer OTHER, BC, SELFPAY ==
[2023-09-26] VITALS (8 sets, daily range): BP systolic 107–141; BP diastolic 73–94; PULSE 51–107; RESP 16–18; TEMP 36.6–36.7; O2SAT 96–100; BMI 22.4
--- NOTE | 2023-09-26 09:59 | ED_ITS ---
Discharge Plan Disposition Patient Disposition: Still a Patient Condition: Good Referrals Follow up/Referrals: Donavon Stanley MD [Primary Care Provider] - See instructions Discharge ED Provider: Padmini Ozuna [facility] [place] HPI General Stated complaint: abd pain, diarrhea Mode of Arrival: Ambulatory Source of Information: Patient Limitations: No Limitations Time Seen by Provider: 09/26/23 10:00 Description of Symptoms (Recalled from Triage Doc. by RN): Pt has been having cramping aroung umbilicus area. He has hx of IBS. This started sunday and has not subsided. He stated that he has been having diarrhea. He describes that pain and dull and constant. 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 and started on Sunday with pain just under his belly button area and states it hard to explain the pain it is uncomfortable States he does have a hx of IBS but this doesnt feel like it does when that flares up States that he has had diarrhea and noticed a little blood but he has that at times States that nothing he has done has helped and only way he can describe it is that he is very uncomfortable and not been able to eat for the last couple of days Related Data Allergies Allergy/AdvReac Type Severity Reaction Status Date / Time No Known Allergies Allergy Verified 09/26/23 09:53 Worker's Comp Is this a Worker's Comp case?: No [facility] Disclaimer: The information contained in this section may have been updated after the patient was seen, as this information can be updated by other users. Medical History Insomnia Generalized anxiety disorder Bipolar II disorder Social History Smoking Status: Current every day smoker tobacco type: cigarettes packs per day: 1 alcohol intake: never substance use type: marijuana current occupational status: other Travel in the last 8 weeks: None number of children: 1 ROS Obtained: Yes All systems reviewed & no additional complaints except as documented and Yes Systems reviewed as appropriate & no additional complaints except as documented Constitutional Constitutional: Reports system reviewed and no additional complaints, except as documented and Reports as per HPI ENT Ears, Nose, Mouth, and Throat: Reports system reviewed and no additional complaints, except as documented and Reports as per HPI Cardiovascular Cardiovascular: Reports system reviewed and no additional complaints, except as documented and Reports as per HPI Respiratory Respiratory: Reports system reviewed and no additional complaints, except as documented and Reports as per HPI Gastrointestinal Gastrointestingal: Reports system reviewed and no additional complaints, except as documented, as per HPI, abdominal pain and diarrhea; Denies vomiting Genitourinary Male Genitourinary: Reports system reviewed and no additional complaints, except as documented and Reports as per HPI Physical Exam General General appearance: alert and in no apparent distress Respiratory Respiratory exam: Present normal lung sounds bilaterally; Absent respiratory distress or wheezes Cardiovascular Cardiovascular exam: Present regular rate, normal rhythm and normal heart sounds Abdominal Exam Abdominal exam: Present other (reports pain from hip to hip just below umbilical area, patient sitting slumped holding abdomen reports no change in pain with palpation reports pain consistent); Absent distention Neurological Exam Neurological exam: Present alert, oriented X3 and normal gait Medical Decision Making [place] Inquiry Pt receiving controlled substance: No [place] was queried for this patient: No Vital Signs: 09/26/23 09:45 Temperature 97.8 F Temperature Source Oral Pulse Rate [Right Radial] 107 H Respiratory Rate 18 Blood Pressure [Right Arm] 141/86 H Blood Pressure Mean [Right Arm] 104 Blood Pressure Source [Right Arm] Automatic Cuff Blood Pressure Position [Right Arm] Sitting 02 Sat by Pulse Oximetry 98 Oxygen Delivery Method Room Air Medical Decision Narrative: Patient sitting on exam table slumped over holding abdomen reports constant discomfort in lower abdomen just below naval area reports hx a IBS but doesnt feel like it does when he has a flare, not been able to eat in last couple of days, Discussed with patient and will transfer to the ED for further work up and evaluation and he agreed Called ED and patient was moved to the ED for further evaluation
[2023-09-26 10:13] LABS: Microscopic, Urine URINE MICROSCOPIC (MICROSCOPIC)
[2023-09-26 10:27] LABS: Basophils # 0.1 K/mm3 (0-0.2); Basophils % 1.9 % (0.1-2.0); Eosinophils # 0.2 K/mm3 (0.0-0.4); Eosinophils % 3.2 % (0.1-12.0); Hematocrit 55.5 % (42.0-52.0); Lymphocytes # 2.2 K/mm3 (0.7-4.5); Lymphocytes % 36.3 % (10-50); Mean Corpuscular HGB Conc 32.4 g/dL (31.8-35.4); Mean Corpuscular Hemoglobin 32.3 pg (27.0-31.2); Mean Corpuscular Volume 99.6 fl (80-94); Mean Platelet Volume 8.7 fl (7.4-10.4); Monocytes # 0.3 K/mm3 (0.1-1.0); Monocytes % 5.6 % (1.7-9.3); Neutrophils # 3.2 K/mm3 (1.8-7.8); Neutrophils % 52.9 % (37.0-80.0); Platelet Count 173 K/mm3 (142-424); Red Blood Count 5.57 M/mm3 (4.60-6.20); Red Cell Distribution Width 13.4 % (11.5-17.5)
[2023-09-26 10:33] LABS: Appearance,Urine CLEAR (Clear); Bilirubin,Urine Negative (Negative); Blood, Urine Negative (Negative); Color,Urine YELLOW (Yellow); Glucose,Urine (UA) Negative (Negative); Ketones,Urine Negative (Negative); Leukocyte Esterase,Urine Negative (Negative); Nitrate,Urine Negative (Negative); Protein,Urine Negative (Negative); Specific Gravity, Urine 1.025 (1.005-1.030); Urobilinogen,Urine 0.2 EU/dl (0.2)
[2023-09-26 10:37] LABS: Chloride 107 mmol/L (98-107); Potassium 4.3 mmoL/L (3.5-5.1); Sodium 138 mmol/L (136-145)
[2023-09-26 10:39] LABS: Alanine Aminotransferase 35 U/L (12-78); Alkaline Phosphatase 66 U/L (38-126); Aspartate Amino Transferase 37 U/L (17-59); Bilirubin,Total 0.7 mg/dl (0.2-1.3); Blood Urea Nitrogen 13 mg/dl (9-20); Creatinine Clearance Estimated 96 mL/min (50-200); Estimated Glomerular Filt Rate 78 ml/min (>60); GFR (African American) 94 ML/MIN (>60)
--- NOTE | 2023-09-26 10:39 | PC.NURSE ---
DR UGALDE AT BEDSIDE
[2023-09-26 10:40] LABS: Albumin Level 4.4 g/dl (3.5-5.0); Albumin/Globulin Ratio 1.6 (1.1-1.8); Anion Gap 6.3 mEq/L (5-15); Calcium 9.2 mg/dl (8.4-10.2); Carbon Dioxide 29 mmol/L (22.0-30.0); Globulin 2.8 g/dL (1.3-3.2); Glucose 81 mg/dl (74-100); Lipase 103 U/L (23-300); Total Protein,Serum 7.2 g/dl (6.3-8.2)
--- NOTE | 2023-09-26 10:41 | CT_ITS ---
FINAL REPORT TECHNIQUE: After the administration of intravenous contrast, axial images were obtained through the abdomen and pelvis by computed tomography. The study was performed with techniques to keep radiation dose as low as reasonably achievable, (ALARA). Individual dose reduction techniques using automated exposure control or adjustment of mA and/or kV according to the patient's size were employed. CLINICAL HISTORY: lower abdominal pain, diarrhea FINDINGS: Abdomen: The lung bases are clear. The liver parenchyma is homogeneous. The gallbladder is present. The spleen, pancreas, adrenals and kidneys appear unremarkable. The aorta is normal in caliber. There is no free fluid or adenopathy. Pelvis: The appendix is normal. There is a large amount of retained stool throughout the colon. The urinary bladder is incompletely distended. There is no free fluid or adenopathy. IMPRESSION: Large stool burden. Reviewed, Interpreted and Dictated by Michael Hilario MD Transcribed by Giovanna Novak Authenticated and [facility]
[2023-09-26 10:50] LABS: Bacteria,Urine Trace /lpf; Mucus,Urine Trace /lpf; RBC,Urine Occasional #/hpf (0-3); Squamous Epithelial Cell,Urine Occasional #/hpf (0-5); WBC,Urine Occasional #/hpf (0-3)
--- NOTE | 2023-09-26 10:54 | ED_ITS ---
Discharge Plan Disposition Patient Disposition: Home, Self-Care Condition: Good Referrals Follow up/Referrals: Donavon Stanley MD [Primary Care Provider] - See instructions Activity Restrictions/Add. Instructions Additional Instructions/Restrictions: You were evaluated in the emergency department today. Please take Tylenol and ibuprofen at home as needed for pain. Hydrate is much as possible. Eat a bland diet. Follow-up closely with your primary care provider for reassessment. You may benefit from referral to gastroenterology if you continue to have issues. Return to the emergency department for new or worsening symptoms Clinical Impressions Clinical Impression: Abdominal pain, lower, Diarrhea Stand Alone Forms Stand Alone Forms: Work/School Release Instructions Patient Instructions: DI for Diarrhea and Traveler's Diarrhea -- Adult, DI for Acute Abdominal Pain Discharge ED Provider: Padmini Ozuna General Adult HPI General Chief complaint: Abdominal Pain Stated complaint: abd pain, diarrhea Time Seen by Provider: 09/26/23 10:00 Mode of Arrival: Ambulatory Source of Information: Patient Limitations: No Limitations Description of Symptoms (Recalled from ER Triage Doc. by RN): pt transferred from [facility] for further evaluation. pt reports bilateral abd pain ongoing since sunday. pt reports feel like marylou been sucker punched in the gut . History of Present Illness HPI narrative: This patient is a 33-year-old male who reports a history of IBS presenting to the emergency department for evaluation with concern for lower abdominal pain. Patient reports that 10 days ago, he started having diarrhea with loose, watery stools that are nonbloody and nonmelanotic. He has had some lower abdominal discomfort that he describes as a feeling of almost bruising, but not true pain. He states that its mostly in his left lower quadrant and suprapubic region, but it radiates to his right lower quadrant. He denies any fevers, chills, nausea, vomiting, or other concerns. he does note urinary frequency with no dysuria. He denies family history of IBD and denies prior history of colonoscopy. Patient was sent over from [facility] for further evaluation of abdominal pain. I had an indirect discussion with provider who noted concerns for appendicitis. Related Data Allergies Allergy/AdvReac Type Severity Reaction Status Date / Time No Known Allergies Allergy Verified 09/26/23 09:53 [facility] Disclaimer: The information contained in this section may have been updated after the patient was seen, as this information can be updated by other users. Medical History Insomnia Generalized anxiety disorder Bipolar II disorder Social History Smoking Status: Current every day smoker tobacco type: cigarettes packs per day: 1 alcohol intake: never substance use type: marijuana current occupational status: other Travel in the last 8 weeks: None number of children: 1 ROS Obtained: Yes All systems reviewed & no additional complaints except as documented Physical Exam General General appearance: alert and in no apparent distress Head Head exam: atraumatic and normocephalic Eye Eye exam: Present normal appearance, PERRL and EOMI ENT ENT exam: Present normal exam, normal oropharynx, mucous membranes moist and normal external ear exam Neck Neck exam: Present normal inspection, full ROM and trachea midline; Absent tenderness Chest Chest inspection: Present normal inspection and symmetric chest wall rise; Absent tenderness Respiratory Respiratory exam: Present normal lung sounds bilaterally; Absent respiratory distress, wheezes, stridor or accessory muscle use Cardiovascular Cardiovascular exam: Present regular rate and normal rhythm Abdominal Exam Abdominal exam: Present soft, tenderness (Suprapubic, periumbilical) and normal bowel sounds; Absent distention, guarding, rebound or rigidity Extremities Exam Extremities exam: Present normal inspection, full ROM and normal capillary refill; Absent tenderness or edema Back Exam Back exam: Present normal inspection and full ROM; Absent tenderness Neurological Exam Neurological exam: Present alert, oriented X3, CN II-XII intact and normal gait; Absent motor sensory deficit Psychiatric Psychiatric exam: Present normal affect and normal mood Skin Skin exam: Present warm and dry Medical Decision Making Medical Records Medical records reviewed: Yes I reviewed the patient's medical records. [place] Inquiry Pt receiving controlled substance: No Vital Signs: 09/26/23 09:45 09/26/23 10:07 09/26/23 10:30 Temperature 97.8 F 97.8 F Temperature Source Oral Oral Pulse Rate 78 Pulse Rate [Right Radial] 107 H 83 Respiratory Rate 18 16 Blood Pressure 123/87 Blood Pressure [Right Arm] 141/86 H 133/94 H Blood Pressure Mean [Right Arm] 104 107 Blood Pressure Source [Right Arm] Automatic Cuff Blood Pressure Position [Right Arm] Sitting 02 Sat by Pulse Oximetry 98 98 96 Oxygen Delivery Method Room Air Room Air Room Air 09/26/23 11:31 09/26/23 12:00 09/26/23 12:30 Temperature Temperature Source Pulse Rate 51 L 60 58 L Pulse Rate [Right Radial] Respiratory Rate Blood Pressure 112/75 114/73 107/77 L Blood Pressure [Right Arm] Blood Pressure Mean [Right Arm] Blood Pressure Source [Right Arm] Blood Pressure Position [Right Arm] 02 Sat by Pulse Oximetry 100 100 98 Oxygen Delivery Method Room Air Room Air Room Air 09/26/23 12:49 09/26/23 12:52 Temperature 98.0 F Temperature Source Pulse Rate 53 L 68 Pulse Rate [Right Radial] Respiratory Rate 16 Blood Pressure 119/81 118/81 Blood Pressure [Right Arm] Blood Pressure Mean [Right Arm] Blood Pressure Source [Right Arm] Blood Pressure Position [Right Arm] 02 Sat by Pulse Oximetry 100 Oxygen Delivery Method Room Air Room Air Lab Data Lab results reviewed: Yes I reviewed the patient's lab results. Lab Results 09/26/23 09:58: Urine Color Yellow, Urine Appearance Clear, Urine pH 6.0, Ur Specific [place] 1.025, Urine Protein Negative, Urine Glucose (UA) Negative, Urine Ketones Negative, Urine Blood Negative, Urine Nitrate Negative, Urine Bilirubin Negative, Urine Urobilinogen 0.2, Ur Leukocyte Esterase Negative, Urine RBC Occasional, Urine WBC Occasional, Ur Squamous Epith Cells Occasional, Urine Bacteria Trace, Urine Mucus Trace 09/26/23 10:19: WBC 6.0, RBC 5.57, Hgb 18.0, Hct 55.5 H, MCV 99.6 H, MCH 32.3 H, MCHC 32.4, RDW 13.4, Plt Count 173, MPV 8.7, Neut % (Auto) 52.9, Lymph % (Auto) 36.3, Evans % (Auto) 5.6, Eos % (Auto) 3.2, Baso % (Auto) 1.9, Neut # (Auto) 3.2, Lymph # (Auto) 2.2, Evans # (Auto) 0.3, Eos # (Auto) 0.2, Baso # (Auto) 0.1, Sodium 138, Potassium 4.3, Chloride 107, Carbon Dioxide 29, Anion Gap 6.3, BUN 13, Creatinine 1.10, Estimated Creat Clear 96, Estimated GFR 78, Est GFR ( Amer) 94, Glucose 81, Calcium 9.2, Total Bilirubin 0.7, AST 37, ALT 35, Alkaline Phosphatase 66, Total Protein 7.2, Albumin 4.4, Globulin 2.8, Albumin/Globulin Ratio 1.6, Lipase 103 09/26/23 10:19 09/26/23 10:19 Orders (Tests/Meds): ED MEDICATIONS Discontinued Medications Generic Name Dose Route Start Last Admin Trade Name Freq PRN Reason Stop Dose Admin Acetaminophen 1,000 mg 09/26/23 11:11 09/26/23 11:20 Acetaminophen 500mg Tab PO 09/26/23 11:12 1,000 mg ONCE ONE Administration Lactated Ringer's 1,000 mls @ 999 mls/hr 09/26/23 11:11 09/26/23 11:21 Lactated Ringer's 1000 Ml Bag IV 09/26/23 12:11 999 mls/hr .Q1H1M ONE Administration Iopamidol 75 ml 09/26/23 10:59 09/26/23 11:01 Iopamidol-370 (76%);100ml Bottle IV 09/26/23 11:00 75 ml ONCE ONE Administration Ketorolac Tromethamine 15 mg 09/26/23 11:11 09/26/23 11:20 Ketorolac 30mg/Ml Vial IV 09/26/23 11:12 15 mg ONCE ONE Administration Sodium Chloride 10 ml 09/26/23 10:59 09/26/23 11:01 Sodium Chloride 0.9% 10ml Syr (Rad Only) IV 09/26/23 11:00 10 ml ONCE ONE Administration ORDERS Category Date Time Status CT abdomen pelvis w con Stat Cat Scan 09/26/23 10:41 Taken Complete Blood Count Auto Diff Stat Lab 09/26/23 10:19 Completed Comprehensive Metabolic Panel Stat Lab 09/26/23 10:19 Completed Lipase Stat Lab 09/26/23 10:19 Completed Urinalysis and Microscopic Stat Lab 09/26/23 09:58 Completed Urine Culture Stat Micro 09/26/23 09:58 Received Medical Decision Narrative: In summary, this patient is a 33-year-old male presenting to the Emergency Department for evaluation of abdominal pain and diarrhea. Differential diagnoses considered include but are not limited to bacterial gastroenteritis, viral gastroenteritis, colitis, IBS, Crohn's disease, ulcerative colitis, diverticulitis, cystitis. Ruling out the most morbid conditions drove assessment. On exam, the patient is well-appearing. Abdominal exam is relatively benign with only suprapubic and periumbilical tenderness. Low likelihood of surgical pathology based on exam, however cannot exclude IBD as a cause. Workup included CBC, CMP, urinalysis, and CT abdomen pelvis with IV contrast. Patient was given a bolus of IV fluids as well as IV Toradol and oral Tylenol for symptomatic improvement. I independently interpreted CT scan prior to the radiologist read and noted acute inflammation or appendicitis. Please see their read for final interpretation. Labs were obtained that demonstrated no acutely concerning abnormalities. On reassessment, patient had good improvement after administration of interventions above. He is resting comfortably with benign abdominal exam. At this time, based on reassuring workup and exam, feel patient is appropriate for discharge. I feel he likely has infectious gastroenteritis. He was given instructions for supportive management, strict return precautions, and he was discharged in stable condition after all questions were answered. Critical Care Critical Care Time Critical Care Time: No
--- NOTE | 2023-09-26 10:55 | PC.NURSE ---
PT TO CT
[2023-09-26] MEDS: IOPAMIDOL-370 (76%);100ML BOTTLE 75 ML IV (11:01)
[2023-09-26] MEDS: SODIUM CHLORIDE 0.9% 10ML SYR (RAD ONLY) 10 ML IV (11:01)
[2023-09-26] MEDS: ACETAMINOPHEN 500MG TAB 1000 MG PO (11:20)
[2023-09-26] MEDS: KETOROLAC 30MG/ML VIAL 15 MG IV (11:20)
[2023-09-26] MEDS: LACTATED RINGERS 1000ML 1,000 ML 999 ML IV (11:21)
== END 2023-09-26 12:58 | disposition home or self-care (01) ==
LOC: UTC 09:55 → ER 10:06
PROVIDERS: Nurse Practitioner; Emergency Provider Emergency Medicine; PCP Internal Medicine Adolescent Medicine
DX: R10.30 Lower abdominal pain, unspecified (principal); R19.7 Diarrhea, unspecified; F17.210 Nicotine dependence, cigarettes, uncomplicated
CPT/HCPCS: 74177; 80053; 81001; 83690; 85025; 87086; 96361; 96374; 99284; Q9967

== ENCOUNTER 2023-09-27 22:17 | Emergency (ER) | payer OTHER, BC, SELFPAY ==
[2023-09-27 22:18] VITALS: BP 137/79; PULSE 105; RESP 20; TEMP 36.6; O2SAT 98; BMI 22.4
--- NOTE | 2023-09-27 22:31 | CT_ITS ---
PROCEDURE INFORMATION: Exam: CT Abdomen And Pelvis With Contrast Exam date and time: 09/27/2023 11:33 PM Age: 33 years old Clinical indication: Abdominal pain; Additional info: R flank pain, severe TECHNIQUE: Imaging protocol: Computed tomography of the abdomen and pelvis with contrast. Radiation optimization: All CT scans at this facility use at least one of these dose optimization techniques: automated exposure control; mA and/or kV adjustment per patient size (includes targeted exams where dose is matched to clinical indication); or iterative reconstruction. Contrast material: ISOVUE; Contrast volume: 75 ml; Contrast route: IV; COMPARISON: CT ABDOMEN PELVIS W CON 09/26/2023 10:58 AM FINDINGS: Liver: Normal. No mass. Gallbladder and bile ducts: Normal. No calcified stones. No ductal dilation. Pancreas: Normal. No ductal dilation. Spleen: Normal. No splenomegaly. Adrenal glands: Normal. No mass. Kidneys and ureters: Normal. No hydronephrosis. Stomach and bowel: Moderately large to large colonic stool burden. Nonobstructive bowel gas pattern. Appendix: No evidence of appendicitis. Intraperitoneal space: Unremarkable. No free air. No significant fluid collection. Vasculature: Unremarkable. No abdominal aortic aneurysm. Lymph nodes: Unremarkable. No enlarged lymph nodes. Urinary bladder: Unremarkable as visualized. Reproductive: Unremarkable as visualized. Bones/joints: Unremarkable. No acute fracture. Soft tissues: Unremarkable. IMPRESSION: 1. No acute findings. 2. Moderately large to large colonic stool burden.
--- NOTE | 2023-09-27 22:32 | HMH.EDGENADL ---
Discharge Plan Disposition Patient Disposition: Home, Self-Care Prescriptions Prescriptions: New cyclobenzaprine 7.5 mg tablet 7.5 mg PO BID PRN (Reason: muscle spasm) Qty: 20 0RF Referrals Follow up/Referrals: Donavon Stanley MD [Primary Care Provider] - See instructions Activity Restrictions/Add. Instructions Additional Instructions/Restrictions: Please take Tylenol and ibuprofen as needed for pain. Please take Flexeril as needed for pain. Please follow-up with your primary care provider. Please return to the emergency department if you develop any new or worsening symptoms or become concerned for your health. Clinical Impressions Clinical Impression: Abdominal pain Qualifiers: Abdominal location: lower abdomen, unspecified Qualified Code(s): R10.30 - Lower abdominal pain, unspecified Back pain Qualifiers: Back pain location: low back pain Chronicity: acute Back pain laterality: right Instructions Patient Instructions: DI for Low Back Pain Discharge ED Provider: Remi Kelly General Adult HPI <Remi Kelly MD - Last Filed: 09/27/23 23:14> General Chief complaint: Back Pain/Injury Stated complaint: back pain Time Seen by Provider: 09/27/23 22:20 Mode of Arrival: Ambulatory Source of Information: Patient Limitations: No Limitations Description of Symptoms (Recalled from ER Triage Doc. by RN): Pt was seen her yesterday for abd pain. Approx 1.5 hours ago he started having R flank pain. Pt rates pain 9/10. History of Present Illness HPI narrative: Patient is a 33-year-old male who presents emergency department for evaluation of flank pain. Onset was acute, occurring at 9 PM tonight, severe, intermittent stabbing. Patient was seen yesterday in the emergency department for lower abdominal pain where workup included CT scan was nonactionable, remarkable for large stool burden. No dysuria, no scrotal pain. His pain is over his right flank extending into his right paraspinal area. Due to severity of pain he presents here for continued evaluation. No other acute complaints at this time. Related Data Previous Rx's Medication Instructions Recorded cyclobenzaprine 7.5 mg tablet 7.5 mg PO BID PRN muscle spasm #20 09/28/23 tabs Allergies Allergy/AdvReac Type Severity Reaction Status Date / Time No Known Allergies Allergy Verified 09/26/23 09:53 PFSH <Remi Kelly MD - Last Filed: 09/27/23 23:14> [facility] Disclaimer: The information contained in this section may have been updated after the patient was seen, as this information can be updated by other users. Medical History Insomnia Generalized anxiety disorder Bipolar II disorder Social History Smoking Status: Current every day smoker tobacco type: cigarettes packs per day: 1 alcohol intake: never substance use type: marijuana current occupational status: other Travel in the last 8 weeks: None number of children: 1 <Remi Kelly MD - Last Filed: 09/27/23 23:14> ROS Obtained: Yes Systems reviewed as appropriate & no additional complaints except as documented Physical Exam <Remi Kelly MD - Last Filed: 09/27/23 23:14> General General appearance: alert and in no apparent distress Head Head exam: atraumatic and normocephalic Eye Eye exam: Present PERRL and EOMI ENT ENT exam: Present mucous membranes moist Neck Neck exam: Present normal inspection Chest Chest inspection: Present normal inspection and symmetric chest wall rise Respiratory Respiratory exam: Present normal lung sounds bilaterally; Absent respiratory distress Cardiovascular Cardiovascular exam: Present regular rate and normal rhythm Abdominal Exam Abdominal exam: Present soft and tenderness Extremities Exam Extremities exam: Present normal inspection Neurological Exam Neurological exam: Present alert and oriented X3 Psychiatric Psychiatric exam: Present normal affect Skin Skin exam: Present warm and dry Medical Decision Making <Remi Kelly MD - Last Filed: 09/27/23 23:14> [place] Inquiry Pt receiving controlled substance: No Vital Signs: 09/27/23 22:18 Temperature 97.9 F Temperature Source Oral Pulse Rate [Left] 105 H Respiratory Rate 20 Blood Pressure [Right Arm] 137/79 Blood Pressure Mean [Right Arm] 98 02 Sat by Pulse Oximetry 98 Oxygen Delivery Method Room Air Lab Data Lab Results 09/27/23 22:30: SARS-CoV-2 (PCR) Not detected, Influenza A Untype (PCR) Not detected, Influenza Type B (PCR) Not detected 09/27/23 22:50: WBC 8.3 D, RBC 5.23, Hgb 16.8, Hct 49.9, MCV 95.4 H, MCH 32.1 H, MCHC 33.7, RDW 13.5, Plt Count 179, MPV 8.6, Neut % (Auto) 49.8, Lymph % (Auto) 40.2, [place] % (Auto) 4.5, Eos % (Auto) 3.6, Baso % (Auto) 1.9, Neut # (Auto) 4.1, Lymph # (Auto) 3.3, [place] # (Auto) 0.4, Eos # (Auto) 0.3, Baso # (Auto) 0.2, Sodium 138, Potassium 4.0, Chloride 108 H, Carbon Dioxide 26, Anion Gap 8.0, BUN 14, Creatinine 1.20, Estimated Creat Clear 88, Estimated GFR 70, Est GFR ( Amer) 85, Glucose 95, Calcium 9.3, Total Bilirubin 0.4, AST 29, ALT 33, Alkaline Phosphatase 61, Total Protein 6.9, Albumin 4.4, Globulin 2.5, Albumin/Globulin Ratio 1.8, Lipase 144 09/27/23 23:42: Urine Color Yellow, Urine Appearance Clear, Urine pH 7.5, Ur Specific [place] 1.015, Urine Protein Negative, Urine Glucose (UA) Negative, Urine Ketones Negative, Urine Blood Negative, Urine Nitrate Negative, Urine Bilirubin Negative, Urine Urobilinogen 1.0, Ur Leukocyte Esterase Negative, Urine RBC Occasional, Urine WBC None, Ur Squamous Epith Cells Occasional, Urine Bacteria None 09/27/23 22:50 09/27/23 22:50 Orders (Tests/Meds): ED MEDICATIONS Generic Name Dose Route Start Last Admin Trade Name Freq PRN Reason Stop Dose Admin Sodium Chloride 10 ml 09/27/23 23:37 09/27/23 23:38 Sodium Chloride 0.9% 10ml Syr (Rad Only) IV 10/27/23 23:36 10 ml NEEDED PRN Administration Maintain IV Site Discontinued Medications Generic Name Dose Route Start Last Admin Trade Name Freq PRN Reason Stop Dose Admin Acetaminophen 1,000 mg 09/27/23 22:27 09/27/23 22:50 Acetaminophen 1,000mg/100ml Vial IV 09/27/23 22:28 1,000 mg ONCE ONE Administration Cyclobenzaprine HCl 10 mg 09/28/23 00:20 Cyclobenzaprine 10mg Tablet PO 09/28/23 00:21 ONCE ONE Lactated Ringer's 1,000 mls @ 999 mls/hr 09/27/23 22:29 09/27/23 22:51 Lactated Ringer's 1000 Ml Bag IV 09/27/23 23:29 999 mls/hr .Q1H1M ONE Administration Iopamidol 75 ml 09/27/23 23:37 09/27/23 23:38 Iopamidol-370 (76%);100ml Bottle IV 09/27/23 23:38 75 ml ONCE ONE Administration Ketorolac Tromethamine 30 mg 09/27/23 22:27 09/27/23 22:50 Ketorolac 30mg/Ml Vial IV 09/27/23 22:28 30 mg ONCE ONE Administration Lidocaine 1 each 09/27/23 22:31 09/27/23 22:50 Lidocaine 5% Transdermal Patch TP 09/27/23 22:32 1 each ONCE ONE Administration Morphine Sulfate 4 mg 09/27/23 22:31 09/27/23 22:50 Morphine 4mg/Ml Syringe IV 09/27/23 22:32 4 mg ONCE ONE Administration Ondansetron HCl 4 mg 09/27/23 22:46 09/27/23 22:51 Ondansetron 4mg/2ml Vial IV 09/27/23 22:47 4 mg ONCE ONE Administration ORDERS Category Date Time Status CT abdomen pelvis w con Stat Cat Scan 09/27/23 22:31 Completed CBC w/Auto Diff [Complete Blood Count Auto Diff] Stat Lab 09/27/23 22:50 Completed CMP [Comprehensive Metabolic Panel] Stat Lab 09/27/23 22:50 Completed Lipase Stat Lab 09/27/23 22:50 Completed Rapid PCR Covid and Flu A/B Stat Lab 09/27/23 22:30 Completed UA [Urinalysis and Microscopic] Stat Lab 09/27/23 23:42 Completed Medical Decision Narrative: In summary patient is a 33-year-old male with past medical history described above who presents emergency department for evaluation of acute flank pain. Patient is hemodynamically stable nontoxic-appearing upon arrival, afebrile, appearing in significant pain, tachycardic heart rate 105. Differential diagnosis includes ureterolithiasis, evolving appendicitis, pain secondary to significant colonic stool burden, among others. Workup will be conducted with hematologic labs, CT abdomen pelvis IV contrast, urinalysis. Initial interventions include multimodal pain control, crystalloid bolus. Workup was largely pending at time of transfer of care to the oncoming physician, Dr. Ferreira. <Robert Ferreira MD - Last Filed: 09/28/23 00:28> Vital Signs: 09/27/23 22:18 Temperature 97.9 F Temperature Source Oral Pulse Rate [Left] 105 H Respiratory Rate 20 Blood Pressure [Right Arm] 137/79 Blood Pressure Mean [Right Arm] 98 02 Sat by Pulse Oximetry 98 Oxygen Delivery Method Room Air Lab Data Lab Results 09/27/23 22:30: SARS-CoV-2 (PCR) Not detected, Influenza A Untype (PCR) Not detected, Influenza Type B (PCR) Not detected 09/27/23 22:50: WBC 8.3 D, RBC 5.23, Hgb 16.8, Hct 49.9, MCV 95.4 H, MCH 32.1 H, MCHC 33.7, RDW 13.5, Plt Count 179, MPV 8.6, Neut % (Auto) 49.8, Lymph % (Auto) 40.2, [place] % (Auto) 4.5, Eos % (Auto) 3.6, Baso % (Auto) 1.9, Neut # (Auto) 4.1, Lymph # (Auto) 3.3, [place] # (Auto) 0.4, Eos # (Auto) 0.3, Baso # (Auto) 0.2, Sodium 138, Potassium 4.0, Chloride 108 H, Carbon Dioxide 26, Anion Gap 8.0, BUN 14, Creatinine 1.20, Estimated Creat Clear 88, Estimated GFR 70, Est GFR ( Amer) 85, Glucose 95, Calcium 9.3, Total Bilirubin 0.4, AST 29, ALT 33, Alkaline Phosphatase 61, Total Protein 6.9, Albumin 4.4, Globulin 2.5, Albumin/Globulin Ratio 1.8, Lipase 144 09/27/23 23:42: Urine Color Yellow, Urine Appearance Clear, Urine pH 7.5, Ur Specific [place] 1.015, Urine Protein Negative, Urine Glucose (UA) Negative, Urine Ketones Negative, Urine Blood Negative, Urine Nitrate Negative, Urine Bilirubin Negative, Urine Urobilinogen 1.0, Ur Leukocyte Esterase Negative, Urine RBC Occasional, Urine WBC None, Ur Squamous Epith Cells Occasional, Urine Bacteria None Orders (Tests/Meds): ED MEDICATIONS Generic Name Dose Route Start Last Admin Trade Name William PRN Reason Stop Dose Admin Sodium Chloride 10 ml 09/27/23 23:37 09/27/23 23:38 Sodium Chloride 0.9% 10ml Syr (Rad Only) IV 10/27/23 23:36 10 ml NEEDED PRN Administration Maintain IV Site Discontinued Medications Generic Name Dose Route Start Last Admin Trade Name William PRN Reason Stop Dose Admin Acetaminophen 1,000 mg 09/27/23 22:27 09/27/23 22:50 Acetaminophen 1,000mg/100ml Vial IV 09/27/23 22:28 1,000 mg ONCE ONE Administration Cyclobenzaprine HCl 10 mg 09/28/23 00:20 Cyclobenzaprine 10mg Tablet PO 09/28/23 00:21 ONCE ONE Lactated Ringer's 1,000 mls @ 999 mls/hr 09/27/23 22:29 09/27/23 22:51 Lactated Ringer's 1000 Ml Bag IV 09/27/23 23:29 999 mls/hr .Q1H1M ONE Administration Iopamidol 75 ml 09/27/23 23:37 09/27/23 23:38 Iopamidol-370 (76%);100ml Bottle IV 09/27/23 23:38 75 ml ONCE ONE Administration Ketorolac Tromethamine 30 mg 09/27/23 22:27 09/27/23 22:50 Ketorolac 30mg/Ml Vial IV 09/27/23 22:28 30 mg ONCE ONE Administration Lidocaine 1 each 09/27/23 22:31 09/27/23 22:50 Lidocaine 5% Transdermal Patch TP 09/27/23 22:32 1 each ONCE ONE Administration Morphine Sulfate 4 mg 09/27/23 22:31 09/27/23 22:50 Morphine 4mg/Ml Syringe IV 09/27/23 22:32 4 mg ONCE ONE Administration Ondansetron HCl 4 mg 09/27/23 22:46 09/27/23 22:51 Ondansetron 4mg/2ml Vial IV 09/27/23 22:47 4 mg ONCE ONE Administration ORDERS Category Date Time Status CT abdomen pelvis w con Stat Cat Scan 09/27/23 22:31 Completed CBC w/Auto Diff [Complete Blood Count Auto Diff] Stat Lab 09/27/23 22:50 Completed CMP [Comprehensive Metabolic Panel] Stat Lab 09/27/23 22:50 Completed Lipase Stat Lab 09/27/23 22:50 Completed Rapid PCR Covid and Flu A/B Stat Lab 09/27/23 22:30 Completed UA [Urinalysis and Microscopic] Stat Lab 09/27/23 23:42 Completed Medical Decision Narrative: In summary patient is a 33-year-old male with past medical history described above who presents emergency department for evaluation of acute flank pain. Patient is hemodynamically stable nontoxic-appearing upon arrival, afebrile, appearing in significant pain, tachycardic heart rate 105. Differential diagnosis includes ureterolithiasis, evolving appendicitis, pain secondary to significant colonic stool burden, among others. Workup will be conducted with hematologic labs, CT abdomen pelvis IV contrast, urinalysis. Initial interventions include multimodal pain control, crystalloid bolus. Workup was largely pending at time of transfer of care to the oncoming physician, Dr. Ferreira. Hanna GLOVER: I assumed care of the patient at the time of handoff from the prior provider. On reassessment patient continues to have pain, primarily in his back now. Laboratory studies were independently interpreted by me and significant for no significant leukocytosis, normal renal function, clean urine without evidence of infection or stone. CT imaging was independently interpreted by me, significant for moderate colonic stool burden as well as some small bowel wall thickening, no evidence of acute appendicitis, cholecystitis, ureterolithiasis or any other emergent/surgical pathology. It seems probable to me that patient's pain is result of some combination of gastroenteritis and colonic distention. I had extensive discussion with patient regarding his symptoms and presentation. He reports that he believes he has IBS, because he has chronic diarrhea, and essentially his entire family has been diagnosed with IBS. I provided the patient with a dose of Flexeril. I gave him return precautions. I encouraged him to follow-up with his PCP for further assessment of his chronic diarrhea and abdominal pain as this may require further testing/scope etc. Patient was encouraged to take Tylenol and ibuprofen at home as needed for pain and was provided with a prescription for Flexeril. Patient discharged in stable condition. Critical Care <Remi Kelly MD - Last Filed: 09/27/23 23:14> Critical Care Time Critical Care Time: No
--- NOTE | 2023-09-27 22:38 | PC.NURSE ---
SWAB OBTAINED AND SENT TO LAB
[2023-09-27 22:40] LABS: Coronavirus 19, PCR Not Detected (NotDetected); Influenza A, PCR Not Detected (NotDetected); Influenza B, PCR Not Detected (NotDetected)
[2023-09-27] MEDS: ACETAMINOPHEN 1,000MG/100ML VIAL 1000 MG IV (22:50)
[2023-09-27] MEDS: KETOROLAC 30MG/ML VIAL 30 MG IV (22:50)
[2023-09-27] MEDS: MORPHINE 4MG/ML SYRINGE 4 MG IV (22:50)
[2023-09-27] MEDS: LIDOCAINE 5% TRANSDERMAL PATCH 1 EACH TP (22:50)
[2023-09-27] MEDS: LACTATED RINGERS 1000ML 1,000 ML 999 ML IV (22:51)
[2023-09-27] MEDS: ONDANSETRON 4MG/2ML VIAL 4 MG IV (22:51)
[2023-09-27 23:01] LABS: Basophils # 0.2 K/mm3 (0-0.2); Basophils % 1.9 % (0.1-2.0); Eosinophils # 0.3 K/mm3 (0.0-0.4); Eosinophils % 3.6 % (0.1-12.0); Hematocrit 49.9 % (42.0-52.0); Hemoglobin 16.8 g/dL (14.1-18.0); Lymphocytes # 3.3 K/mm3 (0.7-4.5); Lymphocytes % 40.2 % (10-50); Mean Corpuscular HGB Conc 33.7 g/dL (31.8-35.4); Mean Corpuscular Hemoglobin 32.1 pg (27.0-31.2); Mean Corpuscular Volume 95.4 fl (80-94); Mean Platelet Volume 8.6 fl (7.4-10.4); Monocytes # 0.4 K/mm3 (0.1-1.0); Monocytes % 4.5 % (1.7-9.3); Neutrophils # 4.1 K/mm3 (1.8-7.8); Neutrophils % 49.8 % (37.0-80.0); Platelet Count 179 K/mm3 (142-424); Red Blood Count 5.23 M/mm3 (4.60-6.20); Red Cell Distribution Width 13.5 % (11.5-17.5); White Blood Count 8.3 K/mm3 (4.8-10.8)
[2023-09-27 23:16] LABS: Chloride 108 mmol/L (98-107); Sodium 138 mmol/L (136-145)
[2023-09-27 23:18] LABS: Alanine Aminotransferase 33 U/L (12-78); Aspartate Amino Transferase 29 U/L (17-59); Blood Urea Nitrogen 14 mg/dl (9-20); Creatinine Clearance Estimated 88 mL/min (50-200); Estimated Glomerular Filt Rate 70 ml/min (>60); GFR (African American) 85 ML/MIN (>60)
[2023-09-27 23:19] LABS: Albumin Level 4.4 g/dl (3.5-5.0); Albumin/Globulin Ratio 1.8 (1.1-1.8); Alkaline Phosphatase 61 U/L (38-126); Bilirubin,Total 0.4 mg/dl (0.2-1.3); Calcium 9.3 mg/dl (8.4-10.2); Carbon Dioxide 26 mmol/L (22.0-30.0); Globulin 2.5 g/dL (1.3-3.2); Glucose 95 mg/dl (74-100); Lipase 144 U/L (23-300); Total Protein,Serum 6.9 g/dl (6.3-8.2)
--- NOTE | 2023-09-27 23:27 | PC.NURSE ---
pt to rad at this time
[2023-09-27] MEDS: IOPAMIDOL-370 (76%);100ML BOTTLE 75 ML IV (23:38)
[2023-09-27] MEDS: SODIUM CHLORIDE 0.9% 10ML SYR (RAD ONLY) 10 ML IV (23:38)
[2023-09-27 23:51] LABS: Microscopic, Urine URINE MICROSCOPIC (MICROSCOPIC)
[2023-09-27 23:54] LABS: Appearance,Urine CLEAR (Clear); Bilirubin,Urine Negative (Negative); Blood, Urine Negative (Negative); Color,Urine YELLOW (Yellow); Glucose,Urine (UA) Negative (Negative); Ketones,Urine Negative (Negative); Leukocyte Esterase,Urine Negative (Negative); Nitrate,Urine Negative (Negative); PH,Urine 7.5 (5.0-8.5); Protein,Urine Negative (Negative); Specific Gravity, Urine 1.015 (1.005-1.030)
[2023-09-28 00:13] LABS: RBC,Urine Occasional #/hpf (0-3); Squamous Epithelial Cell,Urine Occasional #/hpf (0-5)
[2023-09-28] MEDS: CYCLOBENZAPRINE 10MG TABLET 10 MG PO (00:27)
[2023-09-28 00:31] VITALS: BP 127/69; PULSE 69; RESP 16; TEMP 36.7; O2SAT 97
== END 2023-09-28 00:32 | disposition home or self-care (01) ==
PROVIDERS: Emergency Provider Emergency Medicine; PCP Internal Medicine Adolescent Medicine
DX: R10.30 Lower abdominal pain, unspecified (principal); M54.50 Low back pain, unspecified; F31.81 Bipolar II disorder; F41.1 Generalized anxiety disorder; F17.210 Nicotine dependence, cigarettes, uncomplicated
CPT/HCPCS: 74177; 80053; 81001; 83690; 85025; 87636; 96361; 96374; 96375; 99285; J0131; J2405; Q9967

== ENCOUNTER 2023-11-01 18:36 | Emergency (ER) | payer OTHER, BC, SELFPAY ==
[2023-11-01 19:30] VITALS: BP 119/76; PULSE 81; RESP 21; TEMP 37; O2SAT 98; BMI 20.6
--- NOTE | 2023-11-01 19:44 | EXP.UTC ---
Discharge Plan Disposition Patient Disposition: Home, Self-Care Condition: Good Prescriptions Prescriptions: New ondansetron 4 mg tablet,disintegrating 4 mg PO Q8H PRN (Reason: nausea and vomiting) Qty: 10 0RF No Action cyclobenzaprine 7.5 mg tablet 7.5 mg PO BID PRN (Reason: muscle spasm) Qty: 20 0RF Referrals Follow up/Referrals: Donavon Stanley MD [Primary Care Provider] - See instructions Activity Restrictions/Add. Instructions Additional Instructions/Restrictions: Drink extra fluids with and between meals. If you have difficulty drinking, try very small amounts of water or suck on ice chips. ? Avoid fruit juices, as these do not replace minerals and can actually increase diarrhea. ? Children and adults can use sports drinks to replenish electrolytes. Younger children and infants should use products formulated for children, like oral rehydration solutions. ? Eat food in small amounts and let your stomach recover. ? Get lots of rest. You may feel tired or weak. ? No greasy or fried foods for the next 24-48 hours BRAT diet Bananas Rice Apples and [place] ? Make sure to drink plenty of liquids ? Return if needed ? Straight to ER if any life threatening symptoms ? Zofran as prescribed ? You was given an outpatient order for diarrhea panel, please collect specimen and bring back to outpatient lab then call back to the [facility] [[email or web address]] or follow up with family doctor for results ? Follow up with family doctor in the next 48-72 hours if no improvement or any worsening of symptoms Clinical Impressions Clinical Impression: Diarrhea Stand Alone Forms Stand Alone Forms: Work/School Release Instructions Patient Instructions: DI for Nausea -- Adult, Diarrhea Discharge ED Provider: Linh Sims [facility] [place] HPI General Stated complaint: Diarrhea Mode of Arrival: Ambulatory Source of Information: Patient Limitations: No Limitations Time Seen by Provider: 11/01/23 19:44 Description of Symptoms (Recalled from Triage Doc. by RN): PATIENT C/O VOMITING AND DIARRHEA SINCE YESTERDAY MORNING HEENT Symptoms (Recalled from RN notes): No Resp Symptoms (Recalled from RN notes): No Skin Symptoms (Recalled from RN notes): No MS Symptoms (Recalled from RN notes): No Functional Status (Recalled from RN notes): WNL History of Present Illness Provider Complaint: Patient states that he has been having nausea and diarrhea since yesterday and not been able to work not sure if he may have a stomach bug or something Related Data Previous Rx's Medication Instructions Recorded cyclobenzaprine 7.5 mg tablet 7.5 mg PO BID PRN muscle spasm #20 09/28/23 tabs ondansetron 4 mg disintegrating 4 mg PO Q8H PRN nausea and 11/01/23 tablet vomiting #10 tabs Allergies Allergy/AdvReac Type Severity Reaction Status Date / Time No Known Allergies Allergy Verified 09/26/23 09:53 Worker's Comp Is this a Worker's Comp case?: No [facility] Disclaimer: The information contained in this section may have been updated after the patient was seen, as this information can be updated by other users. Medical History Insomnia Generalized anxiety disorder Bipolar II disorder Social History Smoking Status: Current every day smoker tobacco type: cigarettes packs per day: 1 alcohol intake: never substance use type: marijuana current occupational status: other Travel in the last 8 weeks: None number of children: 1 ROS Obtained: Yes All systems reviewed & no additional complaints except as documented and Yes Systems reviewed as appropriate & no additional complaints except as documented Constitutional Constitutional: Reports system reviewed and no additional complaints, except as documented and Reports as per HPI ENT Ears, Nose, Mouth, and Throat: Reports system reviewed and no additional complaints, except as documented and Reports as per HPI Cardiovascular Cardiovascular: Reports system reviewed and no additional complaints, except as documented and Reports as per HPI Gastrointestinal Gastrointestingal: Reports system reviewed and no additional complaints, except as documented, as per HPI, diarrhea and nausea; Denies abdominal pain or cramping Physical Exam General General appearance: alert and in no apparent distress ENT ENT exam: Present mucous membranes moist Respiratory Respiratory exam: Present normal lung sounds bilaterally; Absent respiratory distress or wheezes Cardiovascular Cardiovascular exam: Present regular rate, normal rhythm and normal heart sounds Abdominal Exam Abdominal exam: Present soft and normal bowel sounds; Absent distention or tenderness Neurological Exam Neurological exam: Present alert, oriented X3 and normal gait Medical Decision Making [place] Inquiry Pt receiving controlled substance: No [place] was queried for this patient: No Vital Signs: 11/01/23 19:30 Temperature 98.6 F Temperature Source Oral Pulse Rate [Left Brachial] 81 Respiratory Rate 21 Blood Pressure [Left Arm] 119/76 Blood Pressure Mean [Left Arm] 90 Blood Pressure Source [Left Arm] Automatic Cuff Blood Pressure Position [Left Arm] Sitting 02 Sat by Pulse Oximetry 98 Oxygen Delivery Method Room Air
[2023-11-01 19:48] VITALS: BP 119/76; PULSE 81; RESP 21; TEMP 37; O2SAT 98
== END 2023-11-01 19:50 | disposition home or self-care (01) ==
PROVIDERS: Emergency Provider Nurse Practitioner; PCP Internal Medicine Adolescent Medicine
DX: R19.7 Diarrhea, unspecified (principal); R11.0 Nausea
CPT/HCPCS: 99212; 99214; G0463

== ENCOUNTER 2023-11-08 16:27 | Outpatient (CLI) | payer OTHER, BC, SELFPAY ==
[2023-11-08 16:56] LABS: Basophils # 0.1 K/mm3 (0-0.2); Basophils % 1.3 % (0.1-2.0); Eosinophils # 0.3 K/mm3 (0.0-0.4); Eosinophils % 3.6 % (0.1-12.0); Hematocrit 51.8 % (42.0-52.0); Hemoglobin 17.6 g/dL (14.1-18.0); Lymphocytes # 2.9 K/mm3 (0.7-4.5); Lymphocytes % 41.1 % (10-50); Mean Corpuscular HGB Conc 33.9 g/dL (31.8-35.4); Mean Corpuscular Hemoglobin 32.7 pg (27.0-31.2); Mean Corpuscular Volume 96.5 fl (80-94); Mean Platelet Volume 8.8 fl (7.4-10.4); Monocytes # 0.4 K/mm3 (0.1-1.0); Monocytes % 6.1 % (1.7-9.3); Neutrophils # 3.4 K/mm3 (1.8-7.8); Neutrophils % 47.8 % (37.0-80.0); Platelet Count 189 K/mm3 (142-424); Red Blood Count 5.37 M/mm3 (4.60-6.20); Red Cell Distribution Width 13.6 % (11.5-17.5)
[2023-11-08 17:40] LABS: Erythrocyte Sedimentation Rate 1 mm/hr (0-15)
[2023-11-08 18:10] LABS: Alanine Aminotransferase 27 U/L (12-78); Albumin Level 4.7 g/dl (3.5-5.0); Albumin/Globulin Ratio 1.7 (1.1-1.8); Alkaline Phosphatase 67 U/L (38-126); Anion Gap 13.6 mEq/L (5-15); Aspartate Amino Transferase 25 U/L (17-59); Bilirubin,Total 0.7 mg/dl (0.2-1.3); Blood Urea Nitrogen 11 mg/dl (9-20); Calcium 9.8 mg/dl (8.4-10.2); Carbon Dioxide 29 mmol/L (22.0-30.0); Chloride 101 mmol/L (98-107); Estimated Glomerular Filt Rate 70 ml/min (>60); GFR (African American) 85 ML/MIN (>60); Globulin 2.8 g/dL (1.3-3.2); Glucose 80 mg/dl (74-100); Magnesium 2.2 mg/dl (1.6-2.3); Potassium 4.6 mmoL/L (3.5-5.1); Sodium 139 mmol/L (136-145); Total Protein,Serum 7.5 g/dl (6.3-8.2)
[2023-11-08 18:58] LABS: Vitamin B12 723 pg/mL (239-931)
[2023-11-08 19:42] LABS: Ferritin 98.5 ng/ml (17.9-464)
[2023-11-08 19:47] LABS: Thyroid Stimulating Hormone 0.76 uIU/mL (0.465-4.68)
== END 2023-11-08 23:59 | disposition home or self-care (01) ==
LOC: LAB 16:29
PROVIDERS: PCP Internal Medicine Adolescent Medicine; Visit Provider Nurse Practitioner Family
DX: R10.31 Right lower quadrant pain (principal); K92.1 Melena; R20.2 Paresthesia of skin
CPT/HCPCS: 36415; 80053; 82607; 82728; 83735; 84443; 85025; 85651

== ENCOUNTER → 2024-03-11 14:42 | Outpatient (CLI) | payer OTHER, BC, SELFPAY | LOC: SL 14:43 | PROVIDERS: PCP Internal Medicine Adolescent Medicine; Visit Provider Nurse Practitioner Family | DX: R06.83 Snoring (principal) | CPT/HCPCS: G0399 ==

== ENCOUNTER 2024-04-15 09:30 | Outpatient (CLI) | payer OTHER, SELFPAY ==
--- NOTE | 2024-04-15 | CA_ITS ---
APPROVED REPORT EXAM: Comprehensive 2D, Doppler, and color-flow Echocardiogram [employer]: Crista Jacques CRT Ht: 5 ft 10 in Wt: 145lbs BSA: 1.82 BP: 119/76 mmHg Indications: Chest Pain, Shortness of Breath, Fatigue 2D Dimensions LA Volume 29.80 mL LA Volume Index 16.00 mL/m2 (M/F) 16-34 M-Mode Dimensions RVDd 2.23 cm (0.9-2.6) LA Diam 2.24 cm (1.9-4.0) LVDd 4.89 cm (3.5-5.7) LVDs 3.38 cm (3.5-5.7) IVSd 0.67 cm (0.6-1.1) PWd 0.62 cm (0.6-1.1) EF (Teich) 58.30% FS 30.90% EDV (Teich) 112.30 mL TAPSE 2.62 (<1.7) ESV (Teich) 46.80 mL LV Diastology E Decel Time 197 (160-240 msec) E/A Ratio 1.19 MED A' 10.20 cm/s LAT A' 8.80 cm/s Aortic Valve AO Peak GR. 4.10 mmHg Mitral Valve MV A Velocity 48.0 (40-130 cm/s) E/A Ratio 1.19 Pulmonary Valve PV Peak Velocity 67.0 (50-150 cm/s) Tricuspid Valve TR P. Velocity 208.00 cm/s RAP Estimate 10.00 mmHg RVSP 27.30 mmHg Left Ventricle The left ventricle is normal size. The left ventricular systolic function is normal. The left ventricular ejection fraction is within the normal range. There is normal left ventricular wall thickness. There is normal LV segmental wall motion. The left ventricular diastolic function is normal. LVEF is 55%. Right Ventricle The right ventricle is normal size. The right ventricular systolic function is normal. Atria The left atrium size is normal. The right atrium size is normal. There is no Doppler evidence of interatrial shunt. Aortic Valve The aortic valve opens well. There is no aortic valvular stenosis. No aortic regurgitation is present. Mitral Valve The mitral valve is normal in structure. No evidence of mitral valve stenosis. There is no mitral valve regurgitation noted. Tricuspid Valve Tricuspid valve is grossly normal in structure and function. Trace tricuspid regurgitation. There is insufficient TR jet to estimate RVSP. Pulmonic Valve The pulmonary valve is normal in structure. Trace pulmonic regurgitation. Great Vessels The aortic root is normal in size. The ascending aorta is not well-visualized. IVC is normal in size and collapses >50% with inspiration. Pericardium There is no pericardial effusion. Other Information Study Quality: Adequate Conclusion Normal biventricular systolic function. No significant valvular stenosis or regurgitation. Electronically signed by : Ember Gonzales MD 04/15/2024 11:03:07
--- NOTE | 2024-04-15 12:15 | CT_ITS ---
FINAL REPORT TECHNIQUE: The patient was injected with IV contrast. Axial images were obtained through the chest in a PE protocol. 3-D reconstruction images were also performed. Individualized dose reduction techniques using automated exposure control or adjustment of the MA and/or KV according to patient's size were employed. CLINICAL HISTORY: chest pain, dyspnea COMPARISON: 11/25/2022 FINDINGS: Mediastinal vasculature is adequately opacified. No pulmonary artery filling defects are identified to suggest PE. There is no aortic dissection. There is no axillary adenopathy. There is no hilar or mediastinal adenopathy. The heart size is normal. There is no pericardial or pleural effusion. Limited images of the upper abdomen are unremarkable. No suspicious infiltrate or nodule is identified. A calcified granuloma is noted in the right upper lobe. IMPRESSION: No pulmonary embolus or dissection. Reviewed, Interpreted and Dictated by Michael Hilario MD Transcribed by Kayleigh Olvera Authenticated and [facility]
[2024-04-15 12:26] LABS: Blood Urea Nitrogen 14 mg/dl (9-20); Estimated Glomerular Filt Rate 77 ml/min (>60); GFR (African American) 93 ML/MIN (>60)
[2024-04-15] MEDS: 0.9 % SODIUM CHLORIDE 50 ML VIAL 40 ML IV (12:59)
[2024-04-15] MEDS: SODIUM CHLORIDE 0.9% 10ML SYR (RAD ONLY) 10 ML IV (12:59)
[2024-04-15] MEDS: IOPAMIDOL-370 (76%);100ML BOTTLE 70 ML IV (12:59)
== END 2024-04-15 23:59 | disposition home or self-care (01) ==
PROVIDERS: PCP Internal Medicine Adolescent Medicine; Visit Provider Nurse Practitioner Family
DX: R07.89 Other chest pain (principal); R06.09 Other forms of dyspnea; R42 Dizziness and giddiness; Z82.49 Family history of ischemic heart disease and other diseases of the circulatory system
CPT/HCPCS: 36415; 71275; 82565; 84520; 93306; Q9967

== ENCOUNTER 2024-09-24 10:54 | Observation (INO) | payer OTHER, SELFPAY ==
[2024-09-24] VITALS (10 sets, daily range): BP systolic 101–135; BP diastolic 60–89; PULSE 60–84; RESP 16–20; TEMP 36.6–37.1; O2SAT 98–100; BMI 21.4
[2024-09-24 11:06] LABS: Microscopic, Urine URINE MICROSCOPIC (MICROSCOPIC)
--- NOTE | 2024-09-24 11:16 | CT_ITS ---
FINAL REPORT TECHNIQUE: Thin section axial images are obtained through the abdomen and pelvis after intravenous contrast. Reconstruction images were obtained from the axial data. Exam was performed using dose reduction techniques. CLINICAL HISTORY: RLQ pain migrating from umbilicus. pt states pain started about 0430 this morning COMPARISON: 09/28/2023 FINDINGS: LUNG BASES: Lung bases are clear. Heart size is normal. LIVER: Homogeneous. No focal lesion. GALLBLADDER/BILIARY SYSTEM: Gallbladder is present. No gallstones. No biliary dilatation. SPLEEN: Unremarkable. PANCREAS: Unremarkable. ADRENALS: Unremarkable. KIDNEYS/URETERS/BLADDER: No hydronephrosis, renal mass, or renal stone. Unremarkable urinary bladder. GI TRACT: No small bowel obstruction or dilatation. The appendix is not visualized but there are no secondary signs of appendicitis. No acute colon abnormality. PELVIC ORGANS: Unremarkable for age. LYMPH NODES/RETROPERITONEUM/MESENTERY: No lymphadenopathy. No abdominal aortic aneurysm. ABDOMINAL WALL: The abdominal wall is intact. FREE FLUID: No ascites. BONES: No acute osseous abnormality. IMPRESSION: Appendix is not visualized but there are no secondary signs of appendicitis. Otherwise, no acute process in the abdomen or pelvis. Reviewed, Interpreted and Dictated by Rosa Ramirez MD Transcribed by Chio Nunez Authenticated and [facility]
[2024-09-24 11:22] LABS: Basophils % 0.6 % (0.1-2.0); Eosinophils # 0.1 K/mm3 (0.0-0.4); Eosinophils % 1.3 % (0.1-12.0); Hemoglobin 16.6 g/dL (14.1-18.0); Lymphocytes # 2.2 K/mm3 (0.7-4.5); Lymphocytes % 31.7 % (10-50); Mean Corpuscular HGB Conc 36.1 g/dL (31.8-35.4); Mean Corpuscular Hemoglobin 32.1 pg (27.0-31.2); Monocytes # 0.5 K/mm3 (0.1-1.0); Monocytes % 6.5 % (1.7-9.3); Neutrophils # 4.2 K/mm3 (1.8-7.8); Neutrophils % 59.8 % (37.0-80.0); Platelet Count 199 K/mm3 (142-424); Red Blood Count 5.17 M/mm3 (4.60-6.20); Red Cell Distribution Width 11.8 % (11.5-17.5); White Blood Count 7.1 K/mm3 (4.8-10.8)
[2024-09-24 11:29] LABS: Chloride 101 mmol/L (98-107); Potassium 4.2 mmoL/L (3.5-5.1); Sodium 139 mmol/L (136-145)
[2024-09-24 11:31] LABS: Appearance,Urine CLEAR (Clear); Bilirubin,Urine Negative (Negative); Blood, Urine Negative (Negative); Color,Urine YELLOW (Yellow); Glucose,Urine (UA) Negative (Negative); Ketones,Urine Negative (Negative); Leukocyte Esterase,Urine Negative (Negative); Nitrate,Urine Negative (Negative); Protein,Urine Negative (Negative); Specific Gravity, Urine 1.015 (1.005-1.030); Urobilinogen,Urine 0.2 EU/dl (0.2)
[2024-09-24 11:32] LABS: Alanine Aminotransferase 30 U/L (12-78); Alkaline Phosphatase 58 U/L (38-126); Anion Gap 13.2 mEq/L (5-15); Aspartate Amino Transferase 34 U/L (17-59); Bilirubin,Total 0.8 mg/dl (0.2-1.3); Blood Urea Nitrogen 11 mg/dl (9-20); Calcium 9.2 mg/dl (8.4-10.2); Carbon Dioxide 29 mmol/L (22.0-30.0); Creatinine Clearance Estimated 89 mL/min (50-200); Estimated Glomerular Filt Rate 77 ml/min (>60); GFR (African American) 93 ML/MIN (>60); Glucose 115 mg/dl (74-100); Total Protein,Serum 7.4 g/dl (6.3-8.2)
[2024-09-24 11:33] LABS: Lactic Acid 1.7 mmol/L (0.7-2.1)
[2024-09-24] MEDS: ONDANSETRON 4MG/2ML VIAL 4 MG IV (11:37)
[2024-09-24] MEDS: KETOROLAC 30MG/ML VIAL 15 MG IV (11:37)
[2024-09-24] MEDS: MORPHINE 4MG/ML SYRINGE 4 MG IV (11:38)
--- NOTE | 2024-09-24 11:50 | PC.NURSE ---
PT TO CT
[2024-09-24] MEDS: IOPAMIDOL-370 (76%);100ML BOTTLE 75 ML IV (11:54)
[2024-09-24] MEDS: SODIUM CHLORIDE 0.9% 10ML SYR (RAD ONLY) 10 ML IV (11:54)
--- NOTE | 2024-09-24 11:58 | PC.NURSE ---
PT RETURNED FROM CT
[2024-09-24 11:59] LABS: Squamous Epithelial Cell,Urine Occasional #/hpf (0-5)
[2024-09-24 12:00] LABS: Bacteria,Urine Trace /lpf
[2024-09-24] MEDS: LACTATED RINGERS 1000ML 1,000 ML 999 ML IV (12:01)
[2024-09-24 12:14] LABS: Lipase 87 U/L (23-300)
[2024-09-24 12:40] LABS: Albumin Level 4.9 g/dl (3.5-5.0); Globulin 2.5 g/dL (1.3-3.2)
--- NOTE | 2024-09-24 12:49 | HMH.EDGENADL ---
Discharge Plan Disposition Patient Disposition: Admitted Clinical Impressions Clinical Impression: Intractable abdominal pain Discharge ED Provider: Shubham Valle General Adult HPI General Chief complaint: Abdominal Pain Stated complaint: lower abd pain Time Seen by Provider: 09/24/24 11:00 Mode of Arrival: Ambulatory Description of Symptoms (Recalled from ER Triage Doc. by RN): PT C/O OF LOWER ABDOMIAL PAIN THAT GOT WORSE THIS MORNING. PT REPORTS IBS ONGOING X4 DAYS. REPORTS PAIN IS DIFFERENT. RIGHT LOWER QUAD STABING PAIN. PT C/O OF NAUSEA NO VOMITING.REPORTED DIARRHEA NO FEVER. History of Present Illness HPI narrative: Please note that above description of symptoms, in this electronic medical record under categorization of recalled from ER triage doctor by RN are reflective of an initial nursing assessment, however, is not reflective of my full history and physical exam that was personally taken and clarified. Consequentially, this preceding description of symptoms, which may include the patient's categorized chief complaint in the EMR, do not reflect my personal clinical impression, and the ultimate description of history of present illness and patient stated complaints should be deferred to this section of the note. Unless stated otherwise or congruent with this section of the note, additional signs, symptoms, or incongruence should be interpreted as inaccurate with my clinical impression. Related Data Home Medications ?Medication ?Instructions ?Recorded ?Confirmed dicyclomine 20 mg tablet 20 mg PO ACHS 09/24/24 09/24/24 Allergies Allergy/AdvReac Type Severity Reaction Status Date / Time No Known Allergies Allergy Verified 09/24/24 11:21 [facility] Disclaimer: The information contained in this section may have been updated after the patient was seen, as this information can be updated by other users. Medical History Stage 2 chronic kidney disease Insomnia Generalized anxiety disorder Bipolar II disorder Family History Mother Heart attack Grandfather Heart attack Social History (Updated 09/24/24 @ 11:23 by Irais Momin RN) Smoking Status: Former smoker tobacco type: cigarettes packs per day: 1 alcohol intake: never substance use type: denies use current occupational status: employed and other Travel in the last 8 weeks: None number of children: 1 Have you lived/traveled outside [place] in past 30 days?: No Contact w/someone who lives/traveled outside [place] past 30 days?: No Exposure to someone with infectious disease in past 14 days?: No Do you have a fever (greater than 100.4 F or 38 C)?: No Have you tested positive for COVID-19: No Exposed to someone with COVID-19 in past 14 days?: No Do you have a sore throat?: No Do you have a cough?: No Do you have any weakness?: No Do you have any diarrhea?: No Are you experiencing any unusual bleeding?: No Do you have any muscle aches/pain?: No Do you have any abdominal pain?: Yes Are you experiencing loss of taste or smell?: No Other Medical History Have you received the Pneumonia Vaccine: No ROS Obtained: Yes All systems reviewed & no additional complaints except as documented Physical Exam General General appearance: alert and in no apparent distress Head Head exam: atraumatic and normocephalic Eye Eye exam: Present normal appearance, PERRL and EOMI Neck Neck exam: Present normal inspection, full ROM and trachea midline Respiratory Respiratory exam: Absent respiratory distress, wheezes, stridor, accessory muscle use or prolonged expiratory phase Cardiovascular Cardiovascular exam: Present other (Pulses equal symmetric in upper and lower extremities) Abdominal Exam Abdominal exam: Present soft and tenderness; Absent distention, guarding, rebound, rigidity or pulsatile mass Abdominal tenderness: Present RLQ and suprapubic Extremities Exam Extremities exam: Absent edema Neurological Exam Neurological exam: Present alert, oriented X3 and CN II-XII intact; Absent motor sensory deficit Skin Skin exam: Present warm and dry; Absent diaphoresis or erythema Medical Decision Making Medical Records Medical records reviewed: Yes I reviewed the patient's medical records. Screening: Per USPSTF and CDC recommendations, given the prevalence of disease in our region, it is our hospital?s policy to screen for HIV and viral Hepatitis for all patients aged 18 and over and those with ongoing risk factors. [place] Inquiry Pt receiving controlled substance: No [place] was queried for this patient: No Vital Signs: 09/24/24 11:07 09/24/24 11:30 09/24/24 12:00 Temperature 98 F Temperature Source Oral Pulse Rate 84 83 Pulse Rate [Right] 84 Respiratory Rate 18 Blood Pressure 120/73 123/85 Blood Pressure [Right Arm] 129/83 Blood Pressure Mean 88 97 Blood Pressure Mean [Right Arm] 98 Blood Pressure Source [Right Arm] Automatic Cuff Blood Pressure Position [Right Arm] Supine 02 Sat by Pulse Oximetry 98 98 99 Oxygen Delivery Method Room Air 09/24/24 12:30 09/24/24 13:30 09/24/24 14:00 Temperature Temperature Source Pulse Rate 60 72 Pulse Rate [Right] Respiratory Rate Blood Pressure 135/60 126/89 125/75 Blood Pressure [Right Arm] Blood Pressure Mean 89 86 Blood Pressure Mean [Right Arm] Blood Pressure Source [Right Arm] Blood Pressure Position [Right Arm] 02 Sat by Pulse Oximetry 100 99 Oxygen Delivery Method 09/24/24 14:29 Temperature 98.2 F Temperature Source Oral Pulse Rate 72 Pulse Rate [Right] Respiratory Rate 20 Blood Pressure 125/75 Blood Pressure [Right Arm] Blood Pressure Mean Blood Pressure Mean [Right Arm] Blood Pressure Source [Right Arm] Blood Pressure Position [Right Arm] 02 Sat by Pulse Oximetry Oxygen Delivery Method Room Air Lab Data Lab Results 09/24/24 10:59: Urine Color Yellow, Urine Appearance Clear, Urine pH 8.0, Ur Specific Hubbard 1.015, Urine Protein Negative, Urine Glucose (UA) Negative, Urine Ketones Negative, Urine Blood Negative, Urine Nitrate Negative, Urine Bilirubin Negative, Urine Urobilinogen 0.2, Ur Leukocyte Esterase Negative, Urine RBC None, Urine WBC None, Ur Squamous Epith Cells Occasional, Urine Bacteria Trace 09/24/24 11:15: WBC 7.1, RBC 5.17, Hgb 16.6, Hct 46.0, MCV 89.0, MCH 32.1 H, MCHC 36.1 H, RDW 11.8, Plt Count 199, MPV 10.0, Neut % (Auto) 59.8, Lymph % (Auto) 31.7, Schleicher % (Auto) 6.5, Eos % (Auto) 1.3, Baso % (Auto) 0.6, Neut # (Auto) 4.2, Lymph # (Auto) 2.2, Schleicher # (Auto) 0.5, Eos # (Auto) 0.1, Baso # (Auto) 0.0, Sodium 139, Potassium 4.2, Chloride 101, Carbon Dioxide 29, Anion Gap 13.2, BUN 11, Creatinine 1.10, Estimated Creat Clear 89, Estimated GFR 77, Est GFR ( Amer) 93, Glucose 115 H, Lactate 1.7, Calcium 9.2, Total Bilirubin 0.8, AST 34, ALT 30, Alkaline Phosphatase 58, C-Reactive Protein < 0.3, Total Protein 7.4, Albumin 4.9, Globulin 2.5, Albumin/Globulin Ratio 2.0 H, Lipase 87, HCV Ab JEANNIE w/Rflx PCR Qn Negative, HIV Ag/Ab Combo Qual Negative 09/24/24 11:15 09/24/24 11:15 Orders (Tests/Meds): ED MEDICATIONS Generic Name Dose Route Start Last Admin Trade Name Freq PRN Reason Stop Dose Admin Acetaminophen 650 mg 09/24/24 14:11 Acetaminophen 325mg Tab PO 10/24/24 14:10 Q4HP PRN Fever or Mild Pain (1-3) Lactated Ringer's 1,000 mls @ 100 mls/hr 09/24/24 14:15 Lactated Ringer's 1000 Ml Bag IV 10/24/24 14:14 .Q10H RACHELL Ketorolac Tromethamine 30 mg 09/24/24 14:11 Ketorolac 30mg/Ml Vial IV 09/29/24 14:10 Q6HP PRN Moderate Pain (4-6) Morphine Sulfate 2 mg 09/24/24 14:11 Morphine 2mg/Ml Syringe IV 10/24/24 14:10 Q4HP PRN Moderate to Severe Pain (4-10) Morphine Sulfate 4 mg 09/24/24 14:11 Morphine 4mg/Ml Syringe IV 10/24/24 14:10 Q4HP PRN Severe Pain (7-10) Ondansetron HCl 4 mg 09/24/24 14:11 Ondansetron 4mg/2ml Vial IV 10/24/24 14:10 Q8HP PRN Nausea Polyethylene Glycol 17 gm 09/24/24 14:15 Polyethylene Glycol 3350 17 Gm Packet PO 10/24/24 14:14 DAILY RACHELL Sodium Chloride 10 ml 09/24/24 14:17 Sodium Chloride 0.9% 10ml Flush Syringe IV 10/24/24 14:16 NEEDED PRN Maintain IV Site Discontinued Medications Generic Name Dose Route Start Last Admin Trade Name William PRN Reason Stop Dose Admin Hydromorphone HCl 0.5 mg 09/24/24 13:26 09/24/24 13:33 Hydromorphone 2mg/Ml Syringe IV 09/24/24 13:27 0.5 mg ONCE ONE Administration Lactated Ringer's 1,000 mls @ 999 mls/hr 09/24/24 11:57 09/24/24 12:01 Lactated Ringer's 1000 Ml Bag IV 09/24/24 12:57 999 mls/hr .Q1H1M ONE Administration Iopamidol 75 ml 09/24/24 11:53 09/24/24 11:54 Iopamidol-370 (76%);100ml Bottle IV 09/24/24 11:54 75 ml ONCE ONE Administration Ketorolac Tromethamine 15 mg 09/24/24 11:16 09/24/24 11:37 Ketorolac 30mg/Ml Vial IV 09/24/24 11:17 15 mg ONCE ONE Administration Magnesium Hydroxide 30 ml 09/24/24 14:14 Milk Of Magnesia 30ml Udc PO 09/24/24 14:15 ONCE ONE Mineral Oil 133 ml 09/24/24 14:11 Mineral Oil Enema 133ml RC 09/24/24 14:12 ONCE ONE Morphine Sulfate 4 mg 09/24/24 11:16 09/24/24 11:38 Morphine 4mg/Ml Syringe IV 09/24/24 11:17 4 mg ONCE ONE Administration Ondansetron HCl 4 mg 09/24/24 11:16 09/24/24 11:37 Ondansetron 4mg/2ml Vial IV 09/24/24 11:17 4 mg ONCE ONE Administration Sodium Chloride 10 ml 09/24/24 11:53 09/24/24 11:54 Sodium Chloride 0.9% 10ml Syr (Rad Only) IV 09/24/24 11:54 10 ml ONCE ONE Administration ORDERS Category Date Time Status CT abdomen pelvis w con Stat Cat Scan 09/24/24 11:16 Completed CBC w/Auto Diff [Complete Blood Count Auto Diff] Stat Lab 09/24/24 11:15 Completed CMP [Comprehensive Metabolic Panel] Stat Lab 09/24/24 11:15 Completed CRP [C-Reactive Protein] Stat Lab 09/24/24 11:15 Completed Complete Blood Count Auto Diff AMLAB Lab 09/25/24 06:00 Ordered Complete Blood Count Auto Diff AMLAB Lab 09/26/24 06:00 Ordered Complete Blood Count Auto Diff AMLAB Lab 09/27/24 06:00 Ordered Complete Blood Count Auto Diff AMLAB Lab 09/28/24 06:00 Ordered Complete Blood Count Auto Diff AMLAB Lab 09/29/24 06:00 Ordered Comprehensive Metabolic Panel AMLAB Lab 09/25/24 06:00 Ordered Comprehensive Metabolic Panel AMLAB Lab 09/26/24 06:00 Ordered Comprehensive Metabolic Panel AMLAB Lab 09/27/24 06:00 Ordered Comprehensive Metabolic Panel AMLAB Lab 09/28/24 06:00 Ordered Comprehensive Metabolic Panel AMLAB Lab 09/29/24 06:00 Ordered HIV Combo Stat Lab 09/24/24 11:15 Completed Hepatitis C Ab Qual. W/ RFX Stat Lab 09/24/24 11:15 Completed Lactic Acid Stat Lab 09/24/24 11:15 Completed Lipase Stat Lab 09/24/24 11:15 Completed Lipid Panel AMLAB Lab 09/25/24 06:00 Ordered Magnesium AMLAB Lab 09/25/24 06:00 Ordered Magnesium AMLAB Lab 09/26/24 06:00 Ordered Magnesium AMLAB Lab 09/27/24 06:00 Ordered Magnesium AMLAB Lab 09/28/24 06:00 Ordered Magnesium AMLAB Lab 09/29/24 06:00 Ordered UA [Urinalysis and Microscopic] Stat Lab 09/24/24 10:59 Completed Medical Decision Narrative: 34-year-old male with past medical history of IBS presenting with lower abdominal pain. Patient states that this episode was preceded by approximately 4 days of IBS related diarrhea. Patient states that his abdominal pain began this morning around 4 AM as a dull achy pain, similar to empty stomach pain. Patient states that the pain became worse throughout the morning, and was intermittent. Pain would last for about 15 minutes at a time. Pain is made worse by movement, but eating does not appear to affect the pain. Patient has not noted anything to help with pain. Denies constitutional symptoms, shortness of breath, chest pain, epigastric pain, nausea, vomiting, dysuria, hematuria, hematochezia, and flank pain. History was obtained via conversation with patient. On arrival, patient hemodynamically stable, alert, oriented x4, appropriate, GCS 15, moving all extremities spontaneously, pupils equal and reactive to light. Patient is guarding in bed. Significant abdominal tenderness, primarily in the right lower quadrant. No rebound or rigidity, but he does seem to be guarding. Differential includes PUD, gastritis, enteritis, gastroenteritis, pancreatitis, SBO, colitis, diverticulitis, nephrolithiasis, UTI, cholecystitis, choledocholithiasis, appendicitis, torsion, hepatitis, aortic pathology, mesenteric ischemia among others Patient placed on continuous cardiac monitoring and continuous pulse ox with initial blood pressure 129/83, heart rate 84, saturation 98% on room air. Patient was given Toradol, Zofran, morphine for symptomatic management and correction of underlying abnormalities. Workup independently interpreted and significant for nonactionable hematologic labs with normal white count, normal CRP, normal abdominal labs, lipase, urine. On independent interpretation of imaging, no obvious appendicitis. Difficult to appreciate appendix, but no periappendiceal fat stranding, etc. I contacted the radiologist and talk to her directly. Unable to identify appendix after talking through multiple series as. See radiology read for full review of final results. I contacted the surgeon on-call and had interactive discussion. Recommended admission, serial abdominal exams, GI consultation. I placed GI consultation. I contacted the hospitalist on-call and discussed case with him, graciously accepted patient for admission. Because patient high risk for clinical decompensation, deemed appropriate for inpatient admission. Results were relayed to patient who voiced understanding and patient was agreeable to inpatient admission and management. Patient was admitted to the hospital for further definitive management. Strap Stitcher disclaimer Much of this encounter note is an electronic finisher fiberglass boat parts spoken language to printed text. Electronic finisher fiberglass boat parts of the spoken language may permit errors. Although I have reviewed the note, some errors may still exist. Critical Care Critical Care Time Critical Care Time: No
[2024-09-24 13:07] LABS: HIV Combo NEGATIVE (Negative)
[2024-09-24 13:15] LABS: Hepatitis C Ab Qual. W/ RFX NEGATIVE (Negative)
[2024-09-24] MEDS: HYDROMORPHONE 2MG/ML SYRINGE 0.5 MG IV (13:33)
[2024-09-24 13:43] LABS: C-Reactive Protein < 0.3 mg/L (0-4)
--- NOTE | 2024-09-24 14:12 | PC.NURSE ---
MEDICAL RECORDS SUPERVISOR NOTIFIED OF ADMISSION
--- NOTE | 2024-09-24 14:16 | HMH.PHAINT1 ---
Pharmacy Intervention Comments: MEDICATION RECONCILIATION COMPLETED ON PATIENT USING EXTERNAL FILL HISTORY FROM PHARMACY. -RAYMUNDO DINH, MARIA ESTHERD
--- NOTE | 2024-09-24 15:43 | P.CONS_ITS ---
History of Present Illness *Admission Date: 09/24/24 *Reason for visit:: Abdominal pain *History of present illness: This is a 34-year-old gentleman with known history of irritable bowel syndrome who presented to the emergency department with increasing pain in the lower abdomen. He reports acute exacerbation/alteration of pain that started about 4:00 this morning . He felt like he was just starting to recover from a 4-day bout of really bad IBS flareup . He describes longstanding/intermittent pain in the lower abdomen (he attributes to IBS) that has now increased in severity (most severe in the right lower quadrant). His appetite has been fairly poor for a few days and he has barely eaten or drunk anything (he also attributes to IBS). Severity of this exacerbation is worse than before . He also states that his pain is now a little different and also more on the right . He describes his IBS-associated pain as a bruising dull pain that is mostly lower on the left side . Reportedly, some of the symptoms are similar but also kind of different . He now feels like a knife is poking on the right side down low . ========= Forwarded from emergency department evaluation (truncated): General Chief complaint: Abdominal Pain Stated complaint: lower abd pain Time Seen by Provider: 09/24/24 11:00 Mode of Arrival: Ambulatory Description of Symptoms (Recalled from ER Triage Doc. by RN): PT C/O OF LOWER ABDOMIAL PAIN THAT GOT WORSE THIS MORNING. PT REPORTS IBS ONGOING X4 DAYS. REPORTS PAIN IS DIFFERENT. RIGHT LOWER QUAD STABING PAIN. PT C/O OF NAUSEA NO VOMITING.REPORTED DIARRHEA NO FEVER. Medical Decision Narrative: 34-year-old male with past medical history of IBS presenting with lower abdominal pain. Patient states that this episode was preceded by approximately 4 days of IBS related diarrhea. Patient states that his abdominal pain began this morning around 4 AM as a dull achy pain, similar to empty stomach pain. Patient states that the pain became worse throughout the morning, and was intermittent. Pain would last for about 15 minutes at a time. Pain is made worse by movement, but eating does not appear to affect the pain. Patient has not noted anything to help with pain. Denies constitutional symptoms, shortness of breath, chest pain, epigastric pain, nausea, vomiting, dysuria, hematuria, hematochezia, and flank pain. History was obtained via conversation with patient. On arrival, patient hemodynamically stable, alert, oriented x4, appropriate, GCS 15, moving all extremities spontaneously, pupils equal and reactive to light. Patient is guarding in bed. Significant abdominal tenderness, primarily in the right lower quadrant. No rebound or rigidity, but he does seem to be guarding. Differential includes PUD, gastritis, enteritis, gastroenteritis, pancreatitis, SBO, colitis, diverticulitis, nephrolithiasis, UTI, cholecystitis, choledocholithiasis, appendicitis, torsion, hepatitis, aortic pathology, mesenteric ischemia among others Patient placed on continuous cardiac monitoring and continuous pulse ox with initial blood pressure 129/83, heart rate 84, saturation 98% on room air. Patient was given Toradol, Zofran, morphine for symptomatic management and correction of underlying abnormalities. Workup independently interpreted and significant for nonactionable hematologic labs with normal white count, normal CRP, normal abdominal labs, lipase, urine. On independent interpretation of imaging, no obvious appendicitis. Difficult to appreciate appendix, but no periappendiceal fat stranding, etc. I contacted the radiologist and talk to her directly. Unable to identify appendix after talking through multiple series as. See radiology read for full review of final results. I contacted the surgeon on-call and had interactive discussion. Recommended admission, serial abdominal exams, GI consultation. I placed GI consultation. I contacted the hospitalist on-call and discussed case with him, graciously accepted patient for admission. Because patient high risk for clinical decompensation, deemed appropriate for inpatient admission. Results were relayed to patient who voiced understanding and patient was agreeable to inpatient admission and management. Patient was admitted to the hospital for further definitive management. = == PFSH PFS Disclaimer: The information contained in this section may have been updated after the patient was seen, as this information can be updated by other users. Medical History (Updated 09/24/24 @ 15:57 by Barrington Syed MD) Irritable bowel syndrome Stage 2 chronic kidney disease Insomnia Generalized anxiety disorder Bipolar II disorder Family History Mother Heart attack Grandfather Heart attack Social History (Updated 09/24/24 @ 11:23 by Irais Momin RN) Smoking Status: Former smoker tobacco type: cigarettes packs per day: 1 alcohol intake: never substance use type: denies use current occupational status: employed and other Travel in the last 8 weeks: None number of children: 1 Have you lived/traveled outside [place] in past 30 days?: No Contact w/someone who lives/traveled outside US past 30 days?: No Exposure to someone with infectious disease in past 14 days?: No Do you have a fever (greater than 100.4 F or 38 C)?: No Have you tested positive for COVID-19: No Exposed to someone with COVID-19 in past 14 days?: No Do you have a sore throat?: No Do you have a cough?: No Do you have any weakness?: No Do you have any diarrhea?: No Are you experiencing any unusual bleeding?: No Do you have any muscle aches/pain?: No Do you have any abdominal pain?: Yes Are you experiencing loss of taste or smell?: No Meds Home Medications and Allergies Home Medications ?Medication ?Instructions ?Recorded ?Confirmed ?Type dicyclomine 20 mg tablet 20 mg PO ACHS 09/24/24 09/24/24 History New Prescriptions to Start Prescriptions: Allergies Allergy/AdvReac Type Severity Reaction Status Date / Time No Known Allergies Allergy Verified 09/24/24 11:21 Exam (Inpt) Vital signs and Labs for Last 24 Hours: Temp Pulse Resp BP Pulse Ox O2 Del Method 98.2 F 72 20 125/75 99 Room Air 09/24/24 14:29 09/24/24 14:29 09/24/24 14:29 09/24/24 14:29 09/24/24 13:30 09/24/24 14:29 Laboratory Results - last 24 hr 09/24/24 10:59: Urine Color Yellow, Urine Appearance Clear, Urine pH 8.0, Ur Specific [place] 1.015, Urine Protein Negative, Urine Glucose (UA) Negative, Urine Ketones Negative, Urine Blood Negative, Urine Nitrate Negative, Urine Bilirubin Negative, Urine Urobilinogen 0.2, Ur Leukocyte Esterase Negative, Urine RBC None, Urine WBC None, Ur Squamous Epith Cells Occasional, Urine Bacteria Trace 09/24/24 11:15: WBC 7.1, RBC 5.17, Hgb 16.6, Hct 46.0, MCV 89.0, MCH 32.1 H, M CHC 36.1 H, RDW 11.8, Plt Count 199, MPV 10.0, Neut % (Auto) 59.8, Lymph % (Auto) 31.7, [place] % (Auto) 6.5, Eos % (Auto) 1.3, Baso % (Auto) 0.6, Neut # (Auto) 4.2, Lymph # (Auto) 2.2, [place] # (Auto) 0.5, Eos # (Auto) 0.1, Baso # (Auto) 0.0, Sodium 139, Potassium 4.2, Chloride 101, Carbon Dioxide 29, Anion Gap 13.2, BUN 11, Creatinine 1.10, Estimated Creat Clear 89, Estimated GFR 77, Est GFR ( Amer) 93, Glucose 115 H, Lactate 1.7, Calcium 9.2, Total Bilirubin 0.8, AST 34, ALT 30, Alkaline Phosphatase 58, C-Reactive Protein < 0.3, Total Protein 7.4, Albumin 4.9, Globulin 2.5, Albumin/Globulin Ratio 2.0 H, Lipase 87, HCV Ab JEANNIE w/Rflx PCR Qn Negative, HIV Ag/Ab Combo Qual Negative I & O for Labs for Last 24 Hours: Intake & Output 09/22/24 09/23/24 09/24/24 09/25/24 11:59 11:59 11:59 11:59 Weight 145 lb Constitutional: no acute distress Respiratory: Absent respiratory distress Cardiac: Absent Tachycardia GI: Present tenderness (Tenderness along bilateral lower quadrants with increased tenderness on the right.); Absent guarding or rebound Results Labs 09/24/24 11:15 09/24/24 11:15 Labs: Laboratory Results - last 24 hr 09/24/24 10:59: Urine Color Yellow, Urine Appearance Clear, Urine pH 8.0, Ur Specific [place] 1.015, Urine Protein Negative, Urine Glucose (UA) Negative, Urine Ketones Negative, Urine Blood Negative, Urine Nitrate Negative, Urine Bilirubin Negative, Urine Urobilinogen 0.2, Ur Leukocyte Esterase Negative, Urine RBC None, Urine WBC None, Ur Squamous Epith Cells Occasional, Urine Bacteria Trace 09/24/24 11:15: WBC 7.1, RBC 5.17, Hgb 16.6, Hct 46.0, MCV 89.0, MCH 32.1 H, M CHC 36.1 H, RDW 11.8, Plt Count 199, MPV 10.0, Neut % (Auto) 59.8, Lymph % (Auto) 31.7, [place] % (Auto) 6.5, Eos % (Auto) 1.3, Baso % (Auto) 0.6, Neut # (Auto) 4.2, Lymph # (Auto) 2.2, [place] # (Auto) 0.5, Eos # (Auto) 0.1, Baso # (Auto) 0.0, Sodium 139, Potassium 4.2, Chloride 101, Carbon Dioxide 29, Anion Gap 13.2, BUN 11, Creatinine 1.10, Estimated Creat Clear 89, Estimated GFR 77, Est GFR ( Amer) 93, Glucose 115 H, Lactate 1.7, Calcium 9.2, Total Bilirubin 0.8, AST 34, ALT 30, Alkaline Phosphatase 58, C-Reactive Protein < 0.3, Total Protein 7.4, Albumin 4.9, Globulin 2.5, Albumin/Globulin Ratio 2.0 H, Lipase 87, HCV Ab JEANNIE w/Rflx PCR Qn Negative, HIV Ag/Ab Combo Qual Negative Imaging CT scan - abdomen: report reviewed and image reviewed CT scan - pelvis: report reviewed and image reviewed Assessment and Plan *Assessment and plan (1) Intractable abdominal pain: Status: Acute Category: Medical Code(s): R10.9 - Unspecified abdominal pain Plan: Etiology equivocal. Some aspects of presentation, along with exacerbation location are somewhat consistent with appendicitis. A normal white blood cell count with no left shift is not consistent with appendicitis. No obvious inflammatory changes in/around the expected location of the patient's appendix on CT scan (IV contrast) is not consistent with appendicitis. The patient's lack of fever is somewhat inconsistent with appendicitis. Recent bout of what patient describes as bad IBS flareup creates additional diagnostic possibilities. Pain management as per primary service Serial abdominal exams Gastroenterology consultation Repeat CBC in a.m. Possible repeat CT with IV and PO contrast (appendiceal protocol) in a.m. [pending symptom alteration/development and laboratory results] (2) Abdominal pain, lower: Status: Acute Category: Medical Code(s): R10.30 - Lower abdominal pain, unspecified (3) Irritable bowel syndrome: Status: Acute Qualifiers: Irritable bowel syndrome type: unspecified Qualified Code(s): K58.9 - Irritable bowel syndrome, unspecified Category: Medical Code(s): K58.9 - Irritable bowel syndrome, unspecified Plan: Gastroenterology consultation pending
[2024-09-24] MEDS: POLYETHYLENE GLYCOL 3350 17 GM PACKET PO (16:09)
[2024-09-24] MEDS: MINERAL OIL ENEMA 133ML 133 ML RC (16:09)
[2024-09-24] MEDS: LACTATED RINGERS 1000ML 1,000 ML 100 ML IV (16:09)
[2024-09-24] MEDS: MILK OF MAGNESIA 30ML UDC 30 ML PO (16:09)
--- NOTE | 2024-09-24 18:41 | EXP.HP ---
History of Present Illness *Admission Date: 09/24/24 *History of present illness: Michele Escobar is a 34-year-old male with a medical history of IBS (started taking Bentyl daily for 1 month), anxiety/depression who presents with 1 day onset of severe lower abdominal pain. Patient states he has a history of IBS and has had chronic recurrent diarrhea, but never really any constipation. Patient states it started in his lower abdomen but has localized in his right lower quadrant abdomen. Denies nausea/vomiting, fever/chills, recent travel. He does endorse however that he has started taking Bentyl daily for the past month and has taken it twice daily over the weekend for an IBS diarrhea flare that has gone on for about 4 days. Otherwise no recent changes in medications, diet. Workup in the ED rather unremarkable, CBC, CMP stable. CT abdomen/pelvis does not show acute findings including appendicitis, but upon personal review there does seem to be a moderate amount of stool burden. Case discussed with ED provider and decision was made to admit patient for intractable abdominal pain. [facility] Disclaimer: The information contained in this section may have been updated after the patient was seen, as this information can be updated by other users. Medical History (Updated 09/24/24 @ 15:57 by Barrington Syed MD) Irritable bowel syndrome Stage 2 chronic kidney disease Insomnia Generalized anxiety disorder Bipolar II disorder Family History Mother Heart attack Grandfather Heart attack Social History (Updated 09/24/24 @ 11:23 by Irais Momin RN) Smoking Status: Former smoker tobacco type: cigarettes packs per day: 1 alcohol intake: never substance use type: denies use current occupational status: employed and other Travel in the last 8 weeks: None number of children: 1 Have you lived/traveled outside US in past 30 days?: No Contact w/someone who lives/traveled outside US past 30 days?: No Exposure to someone with infectious disease in past 14 days?: No Do you have a fever (greater than 100.4 F or 38 C)?: No Have you tested positive for COVID-19: No Exposed to someone with COVID-19 in past 14 days?: No Do you have a sore throat?: No Do you have a cough?: No Do you have any weakness?: No Do you have any diarrhea?: No Are you experiencing any unusual bleeding?: No Do you have any muscle aches/pain?: No Do you have any abdominal pain?: Yes Are you experiencing loss of taste or smell?: No Other Medical History Have you received the Flu Vaccine for this season: No Have you received the Pneumonia Vaccine: No Meds Home Medications and Allergies Home Medications ?Medication ?Instructions ?Recorded ?Confirmed ?Type dicyclomine 20 mg tablet 20 mg PO ACHS 09/24/24 09/24/24 History New Prescriptions to Start Prescriptions: Allergies Allergy/AdvReac Type Severity Reaction Status Date / Time No Known Allergies Allergy Verified 09/24/24 11:21 Exam Data for Last 24 hours Vital signs and Labs for Last 24 Hours: Temp Pulse Resp BP Pulse Ox O2 Del Method 98.2 F 64 20 118/69 98 Room Air 09/24/24 14:29 09/24/24 16:00 09/24/24 16:00 09/24/24 16:00 09/24/24 16:00 09/24/24 18:19 Laboratory Results - last 24 hr 09/24/24 10:59: Urine Color Yellow, Urine Appearance Clear, Urine pH 8.0, Ur Specific [place] 1.015, Urine Protein Negative, Urine Glucose (UA) Negative, Urine Ketones Negative, Urine Blood Negative, Urine Nitrate Negative, Urine Bilirubin Negative, Urine Urobilinogen 0.2, Ur Leukocyte Esterase Negative, Urine RBC None, Urine WBC None, Ur Squamous Epith Cells Occasional, Urine Bacteria Trace 09/24/24 11:15: WBC 7.1, RBC 5.17, Hgb 16.6, Hct 46.0, MCV 89.0, MCH 32.1 H, MCHC 36.1 H, RDW 11.8, Plt Count 199, MPV 10.0, Neut % (Auto) 59.8, Lymph % (Auto) 31.7, [place] % (Auto) 6.5, Eos % (Auto) 1.3, Baso % (Auto) 0.6, Neut # (Auto) 4.2, Lymph # (Auto) 2.2, [place] # (Auto) 0.5, Eos # (Auto) 0.1, Baso # (Auto) 0.0, Sodium 139, Potassium 4.2, Chloride 101, Carbon Dioxide 29, Anion Gap 13.2, BUN 11, Creatinine 1.10, Estimated Creat Clear 89, Estimated GFR 77, Est GFR ( Amer) 93, Glucose 115 H, Lactate 1.7, Calcium 9.2, Total Bilirubin 0.8, AST 34, ALT 30, Alkaline Phosphatase 58, C-Reactive Protein < 0.3, Total Protein 7.4, Albumin 4.9, Globulin 2.5, Albumin/Globulin Ratio 2.0 H, Lipase 87, HCV Ab JEANNIE w/Rflx PCR Qn Negative, HIV Ag/Ab Combo Qual Negative I & O for Last 24 hours: Intake & Output 09/21/24 09/22/24 09/23/24 09/24/24 23:59 23:59 23:59 23:59 Intake Total 468 / 468 Output Total 0 / 0 Balance 468 / 468 Weight 65.771 kg Constitutional Constitutional: no acute distress *Routine HEENT Exam Head: Present normocephalic Eye: Present EOMI and PERRL ENT: Present mucous membranes moist *Routine Neck Exam Neck: Present supple; Absent lymphadenopathy *Routine Respiratory Exam Respiratory: Present CTA bilaterally *Routine Cardiovascular Exam Cardiovascular: Present RRR *Routine Abdominal Exam Abdominal: Present soft and tenderness; Absent normoactive bowel sounds Comments: Lower abdominal tenderness, especially prominent in the right lower quadrant without peritoneal signs. Hyperactive bowel sounds. *Routine Rectal Exam Rectal:: deferred *Routine Genitalia Exam Genitalia:: deferred *Routine Extremities Exam Extremities: Absent cyanosis, clubbing or edema *Routine Skin Exam Skin: Present warm; Absent rash *Routine Neurological Exam Neurological: Present alert and oriented X3 Assessment and Plan *Assessment and plan (1) Irritable bowel syndrome: Status: Acute Qualifiers: Irritable bowel syndrome type: unspecified Qualified Code(s): K58.9 - Irritable bowel syndrome, unspecified Category: Medical Code(s): K58.9 - Irritable bowel syndrome, unspecified (2) Intractable abdominal pain: Status: Acute Category: Medical Code(s): R10.9 - Unspecified abdominal pain Plan Michele Escobar is a 34-year-old male with a medical history of IBS (started taking Bentyl daily for 1 month), anxiety/depression who presents with 1 day onset of severe lower abdominal pain. Patient states he has a history of IBS and has had chronic recurrent diarrhea, but never really any constipation. Patient states it started in his lower abdomen but has localized in his right lower quadrant abdomen. Denies nausea/vomiting, fever/chills, recent travel. He does endorse however that he has started taking Bentyl daily for the past month and has taken it twice daily over the weekend for an IBS diarrhea flare that has gone on for about 4 days. Otherwise no recent changes in medications, diet. Workup in the ED rather unremarkable, CBC, CMP stable. CT abdomen/pelvis does not show acute findings including appendicitis, but upon personal review there does seem to be a moderate amount of stool burden. Case discussed with ED provider and decision was made to admit patient for intractable abdominal pain. #Intractable lower abdominal pain #IBS #Suspected constipation ? Unclear etiology at this time. Low suspicion for acute appendicitis given normal WBC and no CT findings to suggest it. ? Started taking Bentyl daily 1 month ago, and has taken it twice daily over the weekend. It is possible that Bentyl could be contributing, especially in the setting of moderate stool burden/constipation. ? Will trial bowel regimen, ordered mineral oil enema, MiraLAX, milk of magnesium. ? Hold Bentyl. ? LR at 125 mL/h. ? Toradol, morphine as needed for pain control. ? GI consulted, pending further recommendations. N.p.o. after midnight. ? General Surgery consulted, low suspicion for appendicitis or surgical intervention at this time. Considering repeating CT abdomen with oral contrast tomorrow if symptoms are not improving. ? Follow-up morning CBC, CMP. #Severe anxiety, IBS ? Patient endorses significant anxiety with life, work. 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 Fiadriano? at bedside who seems to be supportive. ? Behavioral health consulted, pending further recommendations. Full code DVT prophylaxis: Lovenox 40 mg.
[2024-09-24] MEDS: LACTATED RINGERS 1000ML 1,000 ML 125 ML IV (23:25)
[2024-09-25] VITALS: BP 132/77; PULSE 54; RESP 16; TEMP 36.4; O2SAT 100
[2024-09-25] MEDS: ONDANSETRON 4MG/2ML VIAL 4 MG IV (00:06)
--- NOTE | 2024-09-25 03:12 | PC.NURSE ---
Pt is resting in low, locked bed with call light in reach. Respirations even and unlabored, resting with eyes closed at this time. Pt was reporting abd pain of 5 earlier in the shift, but refused pain medication. Administered zofran for nausea. 20 LAC with LR infusing at 125mL/hr. Room air. Pt has been NPO since 0000 in preparation for GI consult. One stool sample was sent for testing, but there wasn't enough, so awaiting another sample to send to lab. No other significant changes since initial shift biophysical.
[2024-09-25 04:00] VITALS: BP 117/66; PULSE 67; RESP 16; TEMP 36.4; O2SAT 97; BMI 21.4
--- NOTE | 2024-09-25 06:32 | CT_ITS ---
FINAL REPORT TECHNIQUE: Thin section axial images are obtained through the abdomen and pelvis after intravenous contrast. Reconstruction images were obtained from the axial data. Exam was performed using dose reduction techniques. Oral contrast was administered. CLINICAL HISTORY: Right lower quadrant abdominal pain Dr wanted scan redone from yesterday with iv and oral, patient attempted to drink oral contrast and was unable to drink much, so Dr said to go ahead and scan with iv COMPARISON: 09/24/2024 FINDINGS: LUNG BASES: Lung bases are clear. Heart size is normal. LIVER: Homogeneous. No focal lesion. GALLBLADDER/BILIARY SYSTEM: Gallbladder is present. No gallstones. No biliary dilatation. SPLEEN: Unremarkable. PANCREAS: Unremarkable. ADRENALS: Unremarkable. KIDNEYS/URETERS/BLADDER: No hydronephrosis, renal mass, or renal stone. Unremarkable urinary bladder. GI TRACT: No small bowel obstruction or dilatation. The appendix is identified on today's exam and is normal. No acute colon abnormality. PELVIC ORGANS: Unremarkable for age. LYMPH NODES/RETROPERITONEUM/MESENTERY: No lymphadenopathy. No abdominal aortic aneurysm. ABDOMINAL WALL: The abdominal wall is intact. FREE FLUID: A small amount of free fluid in the pelvis is likely related to fluid status. BONES: No acute osseous abnormality. IMPRESSION: Normal appendix. No acute abnormality in the abdomen or pelvis. Reviewed, Interpreted and Dictated by Rosa Ramirez MD Transcribed by Chio Nunez Authenticated and . [facility]
--- NOTE | 2024-09-25 06:33 | P.PN_ITS ---
Subjective Patient reports: no new complaints Narrative: He states his right lower quadrant stabbing pain has essentially dissipated. He continues to have pain throughout the lower abdomen ( more in the middle now ). He states that his pain is more like the bruising pain of IBS . Exam Data for Last 24 hours Vital signs and Labs for Last 24 Hours: Temp Pulse Resp BP Pulse Ox O2 Del Method 97.6 F 67 16 117/66 97 Room Air 09/25/24 04:00 09/25/24 04:00 09/25/24 04:00 09/25/24 04:00 09/25/24 04:00 09/25/24 06:15 Laboratory Results - last 24 hr 09/24/24 10:59: Urine Color Yellow, Urine Appearance Clear, Urine pH 8.0, Ur Specific [place] 1.015, Urine Protein Negative, Urine Glucose (UA) Negative, Urine Ketones Negative, Urine Blood Negative, Urine Nitrate Negative, Urine Bilirubin Negative, Urine Urobilinogen 0.2, Ur Leukocyte Esterase Negative, Urine RBC None, Urine WBC None, Ur Squamous Epith Cells Occasional, Urine Bacteria Trace 09/24/24 11:15: WBC 7.1, RBC 5.17, Hgb 16.6, Hct 46.0, MCV 89.0, MCH 32.1 H, MCHC 36.1 H, RDW 11.8, Plt Count 199, MPV 10.0, Neut % (Auto) 59.8, Lymph % (Auto) 31.7, [place] % (Auto) 6.5, Eos % (Auto) 1.3, Baso % (Auto) 0.6, Neut # (Auto) 4.2, Lymph # (Auto) 2.2, [place] # (Auto) 0.5, Eos # (Auto) 0.1, Baso # (Auto) 0.0, Sodium 139, Potassium 4.2, Chloride 101, Carbon Dioxide 29, Anion Gap 13.2, BUN 11, Creatinine 1.10, Estimated Creat Clear 89, Estimated GFR 77, Est GFR ( Amer) 93, Glucose 115 H, Lactate 1.7, Calcium 9.2, Total Bilirubin 0.8, AST 34, ALT 30, Alkaline Phosphatase 58, C-Reactive Protein < 0.3, Total Protein 7.4, Albumin 4.9, Globulin 2.5, Albumin/Globulin Ratio 2.0 H, Lipase 87, HCV Ab JEANNIE w/Rflx PCR Qn Negative, HIV Ag/Ab Combo Qual Negative I & O for Last 24 hours: Intake & Output 09/22/24 09/23/24 09/24/24 09/25/24 11:59 11:59 11:59 11:59 Intake Total 1527 / 1527 Output Total 0 / 0 Balance 1527 / 1527 Weight 145 lb Microbiology Reports for the Last 24 Hours: Microbiology 09/24/24 21:53 Stool WBC Smear - Final Constitutional Constitutional: no acute distress *Routine Respiratory Exam Respiratory: Absent respiratory distress *Routine Cardiovascular Exam Cardiovascular: Absent tachycardia *Routine Abdominal Exam Abdominal: Present tenderness (Slight improvement on right versus prior) Progress Note: A&P Assessment and plan (1) Intractable abdominal pain: Status: Acute Assessment and plan: Stabbing right lower quadrant pain now dissipated. Although improved, resolution not achieved. Follow-up a.m. labs Repeat CT scan with IV and PO contrast (appendix protocol) (2) Irritable bowel syndrome: Status: Acute
[2024-09-25 06:40] LABS: Basophils % 0.6 % (0.1-2.0); Eosinophils # 0.2 K/mm3 (0.0-0.4); Eosinophils % 3.4 % (0.1-12.0); Hematocrit 44.5 % (42.0-52.0); Hemoglobin 15.5 g/dL (14.1-18.0); Lymphocytes # 1.8 K/mm3 (0.7-4.5); Lymphocytes % 39.1 % (10-50); Mean Corpuscular HGB Conc 34.8 g/dL (31.8-35.4); Mean Corpuscular Hemoglobin 31.6 pg (27.0-31.2); Mean Corpuscular Volume 90.6 fl (80-94); Mean Platelet Volume 10.6 fl (7.4-10.4); Monocytes # 0.5 K/mm3 (0.1-1.0); Monocytes % 9.8 % (1.7-9.3); Neutrophils # 2.2 K/mm3 (1.8-7.8); Neutrophils % 46.9 % (37.0-80.0); Platelet Count 169 K/mm3 (142-424); Red Blood Count 4.91 M/mm3 (4.60-6.20); Red Cell Distribution Width 11.9 % (11.5-17.5); White Blood Count 4.7 K/mm3 (4.8-10.8)
[2024-09-25 06:49] LABS: Alanine Aminotransferase 24 U/L (12-78); Albumin Level 4.1 g/dl (3.5-5.0); Albumin/Globulin Ratio 1.9 (1.1-1.8); Alkaline Phosphatase 50 U/L (38-126); Anion Gap 9.6 mEq/L (5-15); Aspartate Amino Transferase 25 U/L (17-59); Blood Urea Nitrogen 8 mg/dl (9-20); Calcium 9.2 mg/dl (8.4-10.2); Carbon Dioxide 30 mmol/L (22.0-30.0); Chloride 105 mmol/L (98-107); Chol/HDL Ratio 5.3 (1-3.5); Cholesterol 169 mg/dl (140-200); Creatinine Clearance Estimated 89 mL/min (50-200); Estimated Glomerular Filt Rate 77 ml/min (>60); GFR (African American) 93 ML/MIN (>60); Globulin 2.2 g/dL (1.3-3.2); Glucose 86 mg/dl (74-100); HDL Cholesterol 32 mg/dl (40-60); Magnesium 2.5 mg/dl (1.6-2.3); Potassium 4.6 mmoL/L (3.5-5.1); Sodium 140 mmol/L (136-145); Total Protein,Serum 6.3 g/dl (6.3-8.2); Triglycerides 117 mg/dl (30-150); VLDL Cholesterol 23 mg/dL (0-40)
[2024-09-25 07:00] LABS: Direct LDL Cholesterol 88.67 mg/dL (100-129)
[2024-09-25] MEDS: LACTATED RINGERS 1000ML 1,000 ML 125 ML IV (07:16)
[2024-09-25 07:45] VITALS: BP 114/74; PULSE 65; RESP 16; TEMP 36.7; O2SAT 99
[2024-09-25 08:16] LABS: Adenovirus F 40/41, stool Not Detected (NotDetected); Astrovirus Not Detected (NotDetected); Campylobacter Not Detected (NotDetected); Clostridium Difficile A/B, PCR Not Detected (NotDetected); Cryptosporidium Not Detected (NotDetected); Cyclospora Cayetanesis Not Detected (NotDetected); Entamoeba histolytica Not Detected (NotDetected); Enteroaggregative E coli Not Detected (NotDetected); Enteropathogenic E coli Not Detected (NotDetected); Enterotoxigenic E coli Not Detected (NotDetected); Giardia lamblia Not Detected (NotDetected); Norovirus Not Detected (NotDetected); Plesimonas Shigalloides, PCR Not Detected (NotDetected); Rotavirus A Not Detected (NotDetected); Salmonella, PCR Not Detected (NotDetected); Sapovirus Not Detected (NotDetected); Shiga-like toxin E coli Not Detected (NotDetected); Shigella Enterovasive E coli Not Detected (NotDetected); Vibrio Cholerae Not Detected (NotDetected); Vibrio, PCR Not Detected (NotDetected); Yersinia Entercolitica, PCR Not Detected (NotDetected)
[2024-09-25] MEDS: SODIUM CHLORIDE 0.9% 10ML SYR (RAD ONLY) 10 ML IV (10:52)
[2024-09-25] MEDS: IOPAMIDOL-370 (76%);100ML BOTTLE 75 ML IV (10:53)
[2024-09-25] MEDS: KETOROLAC 30MG/ML VIAL 15 MG IV (12:17)
[2024-09-25 12:44] LABS: Occult Blood,Stool Negative (Negative)
--- NOTE | 2024-09-25 13:34 | P.DS_ITS ---
General Admission date:: 09/24/24 HPI HPI HPI: Michele Escobar is a 34-year-old male with a medical history of IBS (started taking Bentyl daily for 1 month), anxiety/depression who presents with 1 day onset of severe lower abdominal pain. Patient states he has a history of IBS and has had chronic recurrent diarrhea, but never really any constipation. Patient states it started in his lower abdomen but has localized in his right lower quadrant abdomen. Denies nausea/vomiting, fever/chills, recent travel. He does endorse however that he has started taking Bentyl daily for the past month and has taken it twice daily over the weekend for an IBS diarrhea flare that has gone on for about 4 days. Otherwise no recent changes in medications, diet. Workup in the ED rather unremarkable, CBC, CMP stable. CT abdomen/pelvis does not show acute findings including appendicitis, but upon personal review there does seem to be a moderate amount of stool burden. Case discussed with ED provider and decision was made to admit patient for intractable abdominal pain. Hospital Course Hospital Course Hospital Course: Michele Escobar is a 34-year-old male with a medical history of IBS (started taking Bentyl daily for 1 month), anxiety/depression who presents with 1 day onset of severe lower abdominal pain. Patient states he has a history of IBS and has had chronic recurrent diarrhea, but never really any constipation. Patient states it started in his lower abdomen but has localized in his right lower quadrant abdomen. Denies nausea/vomiting, fever/chills, recent travel. He does endorse however that he has started taking Bentyl daily for the past month and has taken it twice daily over the weekend for an IBS diarrhea flare that has gone on for about 4 days. Otherwise no recent changes in medications, diet. Workup in the ED rather unremarkable, CBC, CMP stable. CT abdomen/pelvis does not show acute findings including appendicitis, but upon personal review there does seem to be a moderate amount of stool burden. Case discussed with ED provider and decision was made to admit patient for intractable abdominal pain. #Intractable lower abdominal pain #IBS #Suspected constipation ? Unclear etiology at this time. Low suspicion for acute appendicitis given normal WBC and no CT findings to suggest it. ? Started taking Bentyl daily 1 month ago, and has taken it twice daily over the weekend. It is possible that Bentyl could be contributing, especially in the setting of moderate stool burden/constipation. ? Symptoms improved with withholding Bentyl and bowel regimen, ordered mineral oil enema, MiraLAX, milk of magnesium. ? GI consulted, recommended FiberCon and hyoscyamine, stopping Bentyl. Will follow-up on pancreatic elastase. ? Stool cultures currently pending, will follow-up. ? General Surgery consulted, very low suspicion for appendicitis or need for surgical intervention at this time. Repeat CT scan with oral contrast also did not indicate appendicitis. ? Will follow-up with GI within 2 weeks. #Severe anxiety, IBS #History of bipolar type II ? Patient endorses significant anxiety with life, work. 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 Fianc? at bedside who seems to be supportive. ? Behavioral health consulted, started Lamictal 25 mg daily for 2 weeks then 25 mg twice daily thereafter. ? Will follow-up with behavioral health within 1 month. Total time spent on discharge: 32 minutes on chart review, counseling, documentation, and direct care with patient. Exam Data for Last 24 hours Vital signs and Labs for Last 24 Hours: Temp Pulse Resp BP Pulse Ox O2 Del Method 98.1 F 65 16 114/74 99 Room Air 09/25/24 07:45 09/25/24 07:45 09/25/24 07:45 09/25/24 07:45 09/25/24 07:45 09/25/24 13:30 Laboratory Results - last 24 hr 09/24/24 11:15: C-Reactive Protein < 0.3 09/25/24 05:47: WBC 4.7 L D, RBC 4.91, Hgb 15.5, Hct 44.5, MCV 90.6, MCH 31.6 H, MCHC 34.8, RDW 11.9, Plt Count 169, MPV 10.6 H, Neut % (Auto) 46.9, Lymph % (Auto) 39.1, [place] % (Auto) 9.8 H, Eos % (Auto) 3.4, Baso % (Auto) 0.6, Neut # (Auto) 2.2, Lymph # (Auto) 1.8, [place] # (Auto) 0.5, Eos # (Auto) 0.2, Baso # (Auto) 0.0, Sodium 140, Potassium 4.6, Chloride 105, Carbon Dioxide 30, Anion Gap 9.6, BUN 8 L D, Creatinine 1.10, Estimated Creat Clear 89, Estimated GFR 77, Est GFR ( Amer) 93, Glucose 86 D, Calcium 9.2, Magnesium 2.5 H, Total Bilirubin 1.0, AST 25 D, ALT 24, Alkaline Phosphatase 50, Total Protein 6.3, Albumin 4.1 D, Globulin 2.2, Albumin/Globulin Ratio 1.9 H, Triglycerides 117, Cholesterol 169, LDL Cholesterol Direct 88.67 L, VLDL Cholesterol 23, HDL Cholesterol 32 L, Cholesterol/HDL Ratio 5.3 H 09/25/24 08:05: Stool Occult Blood Negative I & O for Last 24 hours: Intake & Output 09/22/24 09/23/24 09/24/24 09/25/24 23:59 23:59 23:59 23:59 Intake Total 468 / 1527 1059 / 1059 Output Total 0 / 0 0 / 0 Balance 468 / 1527 1059 / 1059 Weight 65.771 kg 65.77 kg Microbiology Reports for the Last 24 Hours: Microbiology 09/24/24 21:53 Stool WBC Smear - Final Results Data Completed and Pending Labs on day of discharge: Labs from last 24 hours 09/25/24 09/25/24 09/24/24 08:05 05:47 11:15 WBC 4.7 L D RBC 4.91 Hgb 15.5 Hct 44.5 MCV 90.6 MCH 31.6 H MCHC 34.8 RDW 11.9 Plt Count 169 MPV 10.6 H Neut % (Auto) 46.9 Lymph % (Auto) 39.1 [place] % (Auto) 9.8 H Eos % (Auto) 3.4 Baso % (Auto) 0.6 Neut # (Auto) 2.2 Lymph # (Auto) 1.8 [place] # (Auto) 0.5 Eos # (Auto) 0.2 Baso # (Auto) 0.0 Sodium 140 Potassium 4.6 Chloride 105 Carbon Dioxide 30 Anion Gap 9.6 BUN 8 L D Creatinine 1.10 Estimated Creat Clear 89 Estimated GFR 77 Est GFR ( Amer) 93 Glucose 86 D Calcium 9.2 Magnesium 2.5 H Total Bilirubin 1.0 AST 25 D ALT 24 Alkaline Phosphatase 50 C-Reactive Protein < 0.3 Total Protein 6.3 Albumin 4.1 D Globulin 2.2 Albumin/Globulin Ratio 1.9 H Triglycerides 117 Cholesterol 169 LDL Cholesterol Direct 88.67 L VLDL Cholesterol 23 HDL Cholesterol 32 L Cholesterol/HDL Ratio 5.3 H Stool Occult Blood Negative DS: Diagnosis Discharge Diagnosis (1) Intractable abdominal pain: Status: Acute Code(s): R10.9 - Unspecified abdominal pain (2) Irritable bowel syndrome: Status: Acute Code(s): K58.9 - Irritable bowel syndrome, unspecified Qualifiers: Irritable bowel syndrome type: unspecified Qualified Code(s): K58.9 - Irritable bowel syndrome, unspecified Meds Home Medications and Allergies Home Medications ?Medication ?Instructions ?Recorded ?Confirmed ?Type hyoscyamine sulfate 0.125 mg 0.125 mg PO QID #120 tabs 09/25/24 Rx disintegrating tablet lamotrigine 25 mg tablet (Lamictal) See Rx Instructions .Route 09/25/24 Rx .COMPLEX 30 days #30 tabs New Prescriptions to Start Prescriptions: hyoscyamine sulfate Leticia Murcia lamotrigine [Lamictal] Golden Valenzuela Allergies Allergy/AdvReac Type Severity Reaction Status Date / Time No Known Allergies Allergy Verified 09/24/24 11:21 Discharge Plan Disposition Patient Disposition: Home, Self-Care Condition: Fair Follow up Plan Follow up with: Carlyn Haile APRN [Nurse Practitioner] - 11/03/24 9:00 am Leticia Murcia APRN [Nurse Practitioner] - 10/21/24 12:00 pm Prescriptions/Medication Reconciliation: New lamotrigine [Lamictal] 25 mg tablet See Rx Instructions .ROUTE .COMPLEX 30 Days Qty: 30 0RF Rx Instructions: Take 25 mg once daily for 2 weeks, then take twice daily. hyoscyamine sulfate 0.125 mg tablet,disintegrating 0.125 mg PO QID Qty: 120 2RF Discontinued dicyclomine 20 mg tablet 20 mg PO ACHS Patient Comments: TAKE 1 TABLET BY MOUTH 4 TIMES DAILY BEFORE MEAL(S) AND AT BEDTIME Problem Reconciliation Problems Reviewed?: Yes Patient Discharge Instructions Additional Instructions: Please allow your abdominal pain to resolve before starting psyllium husk. Patient Instructions: DI for Abdominal Pain-Adult, DI for Irritable Bowel Syndrome Print Language: [place] Islander Providers Primary Care Provider: Donavon Stanley Admit Provider: Golden Valenzuela Attending Provider: Golden Valenzuela
--- NOTE | 2024-09-25 13:52 | EXP.GE.CONS ---
History of Present Illness *Admission Date: 09/24/24 *History of present illness: Michele Escobar is a 34-year-old male with a medical history of IBS (started taking Bentyl daily for 1 month), anxiety/depression who presents with 1 day onset of severe lower abdominal pain. Patient states he has a history of IBS and has had chronic recurrent diarrhea, but never really any constipation. Patient states it started in his lower abdomen but has localized in his right lower quadrant abdomen. Denies nausea/vomiting, fever/chills, recent travel. He does endorse however that he has started taking Bentyl daily for the past month and has taken it twice daily over the weekend for an IBS diarrhea flare that has gone on for about 4 days. Otherwise no recent changes in medications, diet. Workup in the ED rather unremarkable, CBC, CMP stable. CT abdomen/pelvis does not show acute findings including appendicitis, but upon personal review there does seem to be a moderate amount of stool burden. Case discussed with ED provider and decision was made to admit patient for intractable abdominal pain. Per admission H & P This is a 34-year-old male who reports IBS symptoms for over 15 years. He had a colonoscopy about [address] Stacy. No findings since diagnosed with IBS with diarrhea. The patient has not really sought care for most of that time. He can have between 3 and 10 urgent bowel movements per day. He has had multiple accidents. He gets some nocturnal diarrhea. He denies any melena hematochezia or mucus in his stool. Occasionally he will get some bright red blood on the toilet paper when his hemorrhoids flareup . No family history of colon cancer, stomach cancer, esophageal cancer, IBD, or celiac disease. Over the years the patient is tried quitting smoking eliminating alcohol, decreasing his oral intake, decreasing caffeine and increasing his water intake and decreasing fast food. All of these without improvement of symptoms. He does get nauseous but no vomiting no heartburn or reflux. He does have gas but no belching or bloating. He is lactose intolerant and avoids dairy. About a month ago he was placed on Bentyl. Because it makes him sleepy he can only take the nighttime dose. He did have some mild improvement for the first couple weeks. He has never tried any other medications for his symptoms. We are awaiting results from the diarrhea panel and fecal calprotectin. Patient has been treated with enemas and laxatives and has had multiple bowel movements. He has had significant improvement of her right lower quadrant pain. CT showed no appendicitis with an obviously visible appendix. No SBO, no colitis, diverticulitis. Patient is very mildly tender to palpation throughout abdomen on exam. Patient reports that his urgency and diarrhea is impairing his quality of life. [facility] Disclaimer: The information contained in this section may have been updated after the patient was seen, as this information can be updated by other users. Medical History (Updated 09/25/24 @ 14:04 by Leticia Murcia APRN) Irritable bowel syndrome Stage 2 chronic kidney disease Insomnia Generalized anxiety disorder Bipolar II disorder Family History Mother Heart attack Grandfather Heart attack Social History (Updated 09/24/24 @ 11:23 by Irais Momin RN) Smoking Status: Former smoker tobacco type: cigarettes packs per day: 1 alcohol intake: never substance use type: denies use current occupational status: employed and other Travel in the last 8 weeks: None number of children: 1 Review of Systems Constitutional Constitutional: Reports system reviewed and no additional complaints, except as documented Eyes Eyes: Reports system reviewed and no additional complaints, except as documented ENT Ears, Nose, Mouth, and Throat: Reports system reviewed and no additional complaints, except as documented *Cardiovascular Cardiovascular: Reports system reviewed and no additional complaints, except as documented *Respiratory Respiratory: Reports system reviewed and no additional complaints, except as documented *Gastrointestinal Gastrointestinal: Reports abdominal pain, Reports diarrhea, Reports excessive flatus, Reports fecal incontinence and Reports nausea *Genitourinary Genitourinary: Reports system reviewed and no additional complaints, except as documented *Musculoskeletal Musculoskeletal: Reports system reviewed and no additional complaints, except as documented Meds Home Medications and Allergies Home Medications ?Medication ?Instructions ?Recorded ?Confirmed ?Type dicyclomine 20 mg tablet 20 mg PO ACHS 09/24/24 09/24/24 History hyoscyamine sulfate 0.125 mg 0.125 mg PO QID #120 tabs 09/25/24 Rx disintegrating tablet lamotrigine 25 mg tablet (Lamictal) See Rx Instructions .Route 09/25/24 Rx .COMPLEX 30 days #30 tabs New Prescriptions to Start Prescriptions: hyoscyamine sulfate Leticia Murcia lamotrigine [Lamictal] Golden Valenzuela Allergies Allergy/AdvReac Type Severity Reaction Status Date / Time No Known Allergies Allergy Verified 09/24/24 11:21 Exam (Inpt) Vital signs and Labs for Last 24 Hours: Temp Pulse Resp BP Pulse Ox O2 Del Method 98.1 F 65 16 114/74 99 Room Air 09/25/24 07:45 09/25/24 07:45 09/25/24 07:45 09/25/24 07:45 09/25/24 07:45 09/25/24 13:30 Laboratory Results - last 24 hr 09/25/24 05:47: WBC 4.7 L D, RBC 4.91, Hgb 15.5, Hct 44.5, MCV 90.6, MCH 31.6 H, MCHC 34.8, RDW 11.9, Plt Count 169, MPV 10.6 H, Neut % (Auto) 46.9, Lymph % (Auto) 39.1, [place] % (Auto) 9.8 H, Eos % (Auto) 3.4, Baso % (Auto) 0.6, Neut # (Auto) 2.2, Lymph # (Auto) 1.8, [place] # (Auto) 0.5, Eos # (Auto) 0.2, Baso # (Auto) 0.0, Sodium 140, Potassium 4.6, Chloride 105, Carbon Dioxide 30, Anion Gap 9.6, BUN 8 L D, Creatinine 1.10, Estimated Creat Clear 89, Estimated GFR 77, Est GFR ( Amer) 93, Glucose 86 D, Calcium 9.2, Magnesium 2.5 H, Total Bilirubin 1.0, AST 25 D, ALT 24, Alkaline Phosphatase 50, Total Protein 6.3, Albumin 4.1 D, Globulin 2.2, Albumin/Globulin Ratio 1.9 H, Triglycerides 117, Cholesterol 169, LDL Cholesterol Direct 88.67 L, VLDL Cholesterol 23, HDL Cholesterol 32 L, Cholesterol/HDL Ratio 5.3 H 09/25/24 08:05: Stool Occult Blood Negative I & O for Labs for Last 24 Hours: Intake & Output 09/23/24 09/24/24 09/25/24 09/26/24 11:59 11:59 11:59 11:59 Intake Total 1527 Output Total 0 Balance 1527 Weight 65.771 kg 65.77 kg Microbiology Reports for the Last 24 Hours: Microbiology 09/24/24 21:53 Stool WBC Smear - Final Constitutional: no acute distress Head: Present normocephalic and atraumatic Respiratory: Present CTA bilaterally Cardiac: Present Reg Rate and Rhythm GI: Present soft, tenderness (Very mild TTP throughout, mostly right lower quad) and normal bowel sounds Extremities: Present normal inspection Skin: Present intact Results Labs 09/25/24 05:47 09/25/24 05:47 Labs: Laboratory Results - last 24 hr 09/25/24 05:47: WBC 4.7 L D, RBC 4.91, Hgb 15.5, Hct 44.5, MCV 90.6, MCH 31.6 H, MCHC 34.8, RDW 11.9, Plt Count 169, MPV 10.6 H, Neut % (Auto) 46.9, Lymph % (Auto) 39.1, [place] % (Auto) 9.8 H, Eos % (Auto) 3.4, Baso % (Auto) 0.6, Neut # (Auto) 2.2, Lymph # (Auto) 1.8, [place] # (Auto) 0.5, Eos # (Auto) 0.2, Baso # (Auto) 0.0, Sodium 140, Potassium 4.6, Chloride 105, Carbon Dioxide 30, Anion Gap 9.6, BUN 8 L D, Creatinine 1.10, Estimated Creat Clear 89, Estimated GFR 77, Est GFR ( Amer) 93, Glucose 86 D, Calcium 9.2, Magnesium 2.5 H, Total Bilirubin 1.0, AST 25 D, ALT 24, Alkaline Phosphatase 50, Total Protein 6.3, Albumin 4.1 D, Globulin 2.2, Albumin/Globulin Ratio 1.9 H, Triglycerides 117, Cholesterol 169, LDL Cholesterol Direct 88.67 L, VLDL Cholesterol 23, HDL Cholesterol 32 L, Cholesterol/HDL Ratio 5.3 H 09/25/24 08:05: Stool Occult Blood Negative Assessment and Plan *Assessment and plan (1) RLQ abdominal pain: Status: Acute Category: Medical Code(s): R10.31 - Right lower quadrant pain (2) Fecal urgency: Status: Acute Category: Medical Code(s): R15.2 - Fecal urgency (3) Irritable bowel syndrome with diarrhea: Status: Acute Category: Medical Code(s): K58.0 - Irritable bowel syndrome with diarrhea (4) Abdominal cramping: Status: Acute Category: Medical Code(s): R10.9 - Unspecified abdominal pain (5) Incontinence of feces: Status: Acute Category: Medical Code(s): R15.9 - Full incontinence of feces Plan 1. IBS with diarrhea/right lower quadrant pain/urgency/cramping/incontinent Symptoms have been going on longer than 15 years and seem to be getting worse. It is impairing his quality of life. He is having between 3 and 10 urgent bowel movements daily plus occasional incontinence of stool plus nocturnal diarrhea. CT showed moderate stool burden. Right lower quadrant pain is much improved after laxatives and enemas and multiple bowel movements. Last colonoscopy he reports was unremarkable 15 years ago. I am going to suggest he start OTC FiberCon 2 tablets daily for some bulking fiber. I want him on the soft fiber diet and we discussed foods to avoid. Will check pancreatic elastase. Will recommend trial of hyoscyamine and stop the dicyclomine. I will see him as an outpatient he will likely need a colonoscopy.
--- NOTE | 2024-09-25 16:38 | P.CONS_ITS ---
History of Present Illness *Admission Date: 09/24/24 *Reason for visit:: IBS and anxiety *History of present illness: Patient is in the hospital for IBS. Behavioral health consulted for increase in anxiety. Patient states that most of his anxiety comes from work, he works for [employer]. Patient states that he has worked there for 12 years and the stress is just getting worse. 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 Patient states that he goes to work at 4 AM and gets home around 5 PM or 6 PM and feels like it is just in time to shower, eat, and go to bed. Patient states that his stress is much better on the days that he is not working and that his home life does not cause him stress. Patient states that he has 2 children a 13 and a 17-year-old girl. This 17-year-old girl is his girlfriend's but he cares for her as his own. Patient states that he feels safe at home and is not a victim of abuse. Patient states that his 13-year-old daughter recently decided to live with him and his girlfriend full-time. Patient states that he has an increase in irritability and feels like at home and at work he can have an increase in irritability and can get mad easily. Patient states that sleep is rough and he may only get 3 to 4 hours of sleep at night and he always feels tired. Patient denies the use of alcohol, illegal substances, use of medications that are not his, and he no longer smokes cigarettes. Patient states that he is also slowed down quite a bit on caffeine intake. [facility] Disclaimer: The information contained in this section may have been updated after the patient was seen, as this information can be updated by other users. Medical History Irritable bowel syndrome Stage 2 chronic kidney disease Insomnia Generalized anxiety disorder Bipolar II disorder Family History Mother Heart attack Grandfather Heart attack Social History Smoking Status: Former smoker tobacco type: cigarettes packs per day: 1 alcohol intake: never substance use type: denies use current occupational status: employed and other Travel in the last 8 weeks: None number of children: 1 Meds Home Medications and Allergies Home Medications ?Medication ?Instructions ?Recorded ?Confirmed ?Type hyoscyamine sulfate 0.125 mg 0.125 mg PO QID #120 tabs 09/25/24 Rx disintegrating tablet lamotrigine 25 mg tablet (Lamictal) See Rx Instructions .Route 09/25/24 Rx .COMPLEX 30 days #30 tabs New Prescriptions to Start Prescriptions: hyoscyamine sulfate Leticia Murcia lamotrigine [Lamictal] Golden Valenzuela Allergies Allergy/AdvReac Type Severity Reaction Status Date / Time No Known Allergies Allergy Verified 09/24/24 11:21 Assessment and Plan *Assessment and plan (1) Mood disorder: Status: Acute Category: Medical Code(s): F39 - Unspecified mood [affective] disorder Plan start lamictal 25 mg QHS for 2 weeks then increase to lamictal 50 mg QHS for 2 manoj sheikh has a follow up appointment on October 28 at 4 pm
--- NOTE | 2024-09-26 10:16 | SW/DCPLANNER ---
Spoke with patient on the phone. Patient stated that he is doing well stomach still sore from all the laxatives he was given in the hospital. Patient stated that he is aware of his upcoming appointments. Patient stated that he was ablt to get his medicine picked up. Patient stated that he has no concerns or questions at this time. Johan Robert
[2024-09-27 08:45] LABS: Calprotectin, Fecal 8 ug/g (0-120)
== END 2024-09-25 14:50 | disposition home or self-care (01) ==
LOC: ER 11:17 → 2ND 14:20
PROVIDERS: Admitting Provider Student in an Organized Health Care Education/Training Program; Emergency Provider Emergency Medicine; PCP Internal Medicine Adolescent Medicine; Visit Provider Student in an Organized Health Care Education/Training Program
DX: K58.0 Irritable bowel syndrome with diarrhea (principal); R10.30 Lower abdominal pain, unspecified; R15.9 Full incontinence of feces; F39 Unspecified mood [affective] disorder; N18.2 Chronic kidney disease, stage 2 (mild); Z87.891 Personal history of nicotine dependence; Z82.49 Family history of ischemic heart disease and other diseases of the circulatory system; Z79.899 Other long term (current) drug therapy
CPT/HCPCS: 74177; 80053; 80061; 81001; 82272; 83605; 83690; 83735; 83993; 85025; 86140; 86803; 87045; 87205; 87389; 87507; 99252; 99285; G0328; G0378; J1171; J1885; J2270; J2405; J7120; Q9967

== ENCOUNTER 2025-04-07 14:29 | Outpatient (CLI) | payer OTHER, SELFPAY ==
--- OUTSIDE RECORDS SUMMARY | 2025-04-07 14:32 | XMS_ITS | Clinical Summary ---
Author Organization [facility] , [facility] Address [address] [place] [address] Phone Care Team Providers Care Candy Polisher Name Role Phone FRENCH ANG MD Unavailable [phone] Tim GLOVER, Chente Diggs Unavailable [phone] Reason for Visit and Chief Complaint [Patient Encounter] Problems Includes: Problems addressed during this encounter and other active Problems All Visits Onset Date Resolved Date Provider Condition S tatus Lower Back Pain 06/22/2022 Chente Dumont MD Act marylou Last Documented On 2 2:40PM ; [facility], [facility] Plan of Treatment No Plan of Treatment Recorded Assessments Includes: Assessments from this encounter No Assessments Recorded Medical Equipment - Implanted Devices Includes: Current Devices No Medical Equipment Recorded Medications Includes: Medications discussed during this encounter and other current Medications Current Medications (continue as prescribed) Vitamin B12 3000 MCG/ML Liquid 12/07/2015 Provider: Diagnosis: Last Documented On 6 2:44PM By Diana Rodriguez [facility], [facility] Naproxen 500 MG Tablet 12/07/2015 Provider: Diagnosis: Last Documented On 6 2:44PM By Diana Rodriguez [facility] Robaxin 500 MG Tablet 12/07/2015 Provider: Diagnosis: Last Documented On 6 2:45PM By Diana Burciaga ; [facility], [facility] Medications Administered Includes: Administered Medications from this encounter No Administered Medications Recorded Results Includes: Results discussed during this encounter No Results Recorded For Specified Dates History of Present Illness Includes: History of Present Illness from this encounter No History of Present Illness Recorded Social History No Social History Recorded - Smoking Status Unknown Medical History Includes: Medical History addressed during this encounter No Medical History Recorded Family History Includes: Family History addressed during this encounter No Family History Recorded Review of Systems Includes: Review of Systems from this encounter No Review of Systems Recorded Mental Status Includes: Mental Status from this encounter No Mental Status Recorded Functional Status Includes: Functional Status from this encounter No Functional Status Recorded Physical Exam Includes: Physical Exam from this encounter No Physical Exam Recorded Allergies Includes: Active Allergies No Known Allergies Encounters Encounter Provider Location Date Check-In Time Check-Out Time Diagnosis [Patient Encounter] Chente Dumont MD 09/07/2022 2:12PM 11:59PM Insurance Includes: Active Insurance Policies Plan Name Member ID Group # Subscriber Relationship Effect [email or web address] Dates 1 - [employer] Medicaid [id number] Michele Ricardo 07/02/2022 - Unknown Clinical Notes Includes: Clinical Notes from this encounter No Clinical Notes Recorded
--- OUTSIDE RECORDS SUMMARY | 2025-04-07 14:32 | XMS_ITS ---
Author Organization [facility] , [facility] Address [address] [place] [address] Phone Care Team Providers Care Merchandising Assistant Name Role Phone FRENCH ANG MD Unavailable [phone] Chente Dumont MD Unavailable [phone] Reason for Referral Date Encounter Description Provider Reason for Referral 06/22/22 Physician Specified Chente Dumont MD Refe rral To Physician Problems Includes: Active, inactive, and resolved Problems All Visits Onset Date Resolved Date Provider Condition S tatus Lower Back Pain 06/22/2022 Chente Dumont MD Act marylou Last Documented On 2 2:40PM ; [facility] Plan of Treatment Instructions to patient Intervention and counseling on cessation of tobacco use Last Documented On 3 1:10PM ; [facility] Intervention and counseling on cessation of tobacco use Last Documented On 3 8:44AM ; [facility] Intervention and counseling on cessation of tobacco use Last Documented On 2 2:38PM ; [facility] Intervention and counseling on cessation of tobacco use Last Documented On 6 2:45PM ; [facility] Education and Decision Aids were provided during visit for: Health seminar on smoking ce ssation Last Documented On 3 8:44AM ; [facility] Health seminar on smoking ce ssation Last Documented On 2 2:38PM ; [facility] Health seminar on smoking ce ssation Last Documented On 6 2:45PM ; [facility] Assessments Includes: Assessments for all patient encounters No Assessments Recorded Instructions Includes: Instructions for all patient encounters Instructions to patient Intervention and counseling on cessation of tobacco use Last Documented On 3 1:10PM ; [facility] Intervention and counseling on cessation of tobacco use Last Documented On 3 8:44AM ; [facility] Intervention and counseling on cessation of tobacco use Last Documented On 2 2:38PM ; [facility] Intervention and counseling on cessation of tobacco use Last Documented On 6 2:45PM ; [facility] Education and Decision Aids were provided during visit for: Health seminar on smoking ce ssation Last Documented On 3 8:44AM ; [facility] Health seminar on smoking ce ssation Last Documented On 2 2:38PM ; [facility] Health seminar on smoking ce ssation Last Documented On 6 2:45PM ; [facility] Medical Equipment - Implanted Devices Includes: Current and historical Devices No Medical Equipment Recorded Medications Includes: Current and historical Medications Current Medications (continue as prescribed) Vitamin B12 3000 MCG/ML Liquid 12/07/2015 Provider: Diagnosis: Last Documented On 6 2:44PM By Diana Burciaga ; [facility] Naproxen 500 MG Tablet 12/07/2015 Provider: Diagnosis: Last Documented On 6 2:44PM By Diana Burciaga ; [facility] Robaxin 500 MG Tablet 12/07/2015 Provider: Diagnosis: Last Documented On 6 2:45PM By Diana Burciaga ; [facility] Medications Administered Includes: Administered Medications in patient's chart No Administered Medications Recorded Results Includes: Results from 04/07/2024 through 04/07/2025 No Results Recorded For Specified Dates History of Present Illness History of Present Illness not supported for this document type No History of Present Illness Recorded Social History Description Last Updated Tobacco use 08/10/2022 Last Documented On 3 5:25PM ; [facility] No recent change in diet 08/10/2022 Last Documented On 3 5:25PM ; [facility] Yes, current smoker. 08/10/2022 Last Documented On 3 5:25PM ; [facility] Caffeine use 12/07/2015 Last Documented On 6 1:51PM ; [facility] Current smoker 12/07/2015 Last Documented On 6 1:51PM ; [facility] Exercising regularly 12/07/2015 Last Documented On 6 1:51PM ; [facility] No recent change in diet 12/07/2015 Last Documented On 6 1:51PM ; [facility] Not using alcohol 12/07/2015 Last Documented On 6 1:51PM ; [facility] Not using drugs 12/07/2015 Last Documented On 6 1:51PM ; [facility] Smoking status : Current everyday smoker 12/07/2015 Last Documented On 6 1:51PM ; [facility] Medical History Includes: Medical History in patient's chart Description Last Updated No recent immunization for flu 2 Last Documented On 2 3:41PM ; [facility] No recent immunization for pneumococcal pneumonia 06/22/2022 Last Documented On 2 3:41PM ; [facility], [facility] Past medical and surgical history non-co ntributory 12/07/2015 Last Documented On 6 1:51PM ; [facility] Family History Includes: Family History in patient's chart Description Last Updated No significant family history 12/07/2015 Last Documented On 6 1:51PM ; [facility] Review of Systems Review of Systems not supported for this document type No Review of Systems Recorded Mental Status Description No anxiety Functional Status No Functional Status Recorded Physical Exam Physical Exam not supported for this document type No Physical Exam Recorded Allergies Includes: Active, inactive, and resolved Allergies No Known Allergies Insurance Includes: Active Insurance Policies Plan Name Member ID Group # Subscriber Relationship Effect marylou Dates 1 - [facility] Medicaid [id number] Michele Escobar Self 07/02/2022 - Unknown Clinical Notes Includes: Signed Clinical Notes starting from 06/15/2022 No Clinical Notes Recorded
--- OUTSIDE RECORDS SUMMARY | 2025-04-07 14:32 | XMS_ITS | Clinical Summary ---
Author Organization [facility] Address [address] [place] [address] Phone Care Team Providers Care Tester Wafer Substrate Name Role Phone FRENCH ANG MD Unavailable [phone] Chente Dumont MD Unavailable [phone] Reason for Referral Date Encounter Description Provider Reason for Referral 06/22/22 Physician Specified Chente Dumont MD Refe rral To Physician Reason for Visit and Chief Complaint The Chief Complaint is: Back Pain from accident on 08/09/15 Problems Includes: Problems addressed during this encounter and other active Problems Current Visit Onset Date Resolved Date Provider Conditio n Status Lower Back Pain 06/22/2022 Chente Dumont MD Act marylou Last Documented On 2 2:40PM ; [facility], [facility] Plan of Treatment Instructions to patient Intervention and counseling on cessation of tobacco use Last Documented On 2 2:38PM ; [facility], [facility] Education and Decision Aids were provided during visit for: Health seminar on smoking ce ssation Last Documented On 2 2:38PM ; [facility], [facility] Assessments Includes: Assessments from this encounter No Assessments Recorded Instructions Includes: Instructions from this encounter Instructions to patient Intervention and counseling on cessation of tobacco use Last Documented On 2 2:38PM ; [facility], [facility] Education and Decision Aids were provided during visit for: Health seminar on smoking ce ssation Last Documented On 2 2:38PM ; [facility], [facility] Medical Equipment - Implanted Devices Includes: [...] On 6 2:45PM By Diana Burciaga ; [facility] Medications Administered Includes: Administered Medications from this encounter No Administered Medications Recorded Vital Signs Includes: Vital Signs from this encounter Vital Name 06/22/2022 02:40P Blood Pressure Sitting R 152/97 Pulse Rate-Sitting (bpm) 95 Height (in) 69 Weight (lb) 142 Body Mass Index 21 Body Surface Area 1.8 Note: bb Last Documented: On 06/22/2022 2:41PM ; [facility] Results Includes: Results discussed during this encounter No Results Recorded For Specified Dates History of Present Illness Includes: History of Present Illness from this encounter HPI Michele Escobar is a 32 year old male. - Symptoms numbness/tingling in arms & fingers. - Allergy list reviewed - Problem list reviewed - Medication list reviewed - Previous history of new onset pain 08/09/2015 - Gradual onset - Sharp pain Symptoms - Stabbing - Pain is constant (100% of the time) - Pain is throbbing Please rate pain on scale of 1 - 10: 9 Previous Treatment: Chiropractor Medications used for this condition: Naproxen & Robaxin Social History Description Last Updated Tobacco use 08/10/2022 Last Documented On 2 2:38PM ; [facility] Yes, current smoker. 06/22/2022 Last Documented On 2 3:41PM ; [facility] No recent change in diet 06/22/2022 Last Documented On 2 3:41PM ; [facility] Caffeine use 12/07/2015 Last Documented On 2 2:38PM ; [facility] Current smoker 12/07/2015 Last Documented On 2 2:38PM ; [facility] Exercising regularly 12/07/2015 Last Documented On 2 2:38PM ; [facility] No recent change in diet 12/07/2015 Last Documented On 2 2:38PM ; [facility] Not using alcohol 12/07/2015 Last Documented On 2 2:38PM ; [facility] Not using drugs 12/07/2015 Last Documented On 2 2:38PM ; [facility] Smoking status : Current everyday smoker 12/07/2015 Last Documented On 2 2:38PM ; [facility] Procedures and Surgical History Includes: Procedures from this encounter Procedures Code Diagnosis Performing Provider Service L ocation Service Date intervention and counseling on cessation of tobacco use 4000F Last Documented On 2 2:38PM ; [facility] use of tobacco assessment performed 1000F Last Documented On 2 3:40PM ; [facility] no influenza immunization patient refuse d Last Documented On 2 3:40PM ; [facility] follow-up visit in one month Last Documented On 2 3:40PM ; [facility] referral to physician Last Documented On 2 3:40PM ; [facility] history of an X-ray was performed 08/2015 46399 Last Documented On 2 2:38PM ; [facility] Medical History Includes: Medical History addressed during this encounter Description Last Updated No recent immunization for flu 2 Last Documented On 2 3:41PM ; [facility] No recent immunization for pneumococcal pneumonia 06/22/2022 Last Documented On 2 3:41PM ; [facility] Past medical and surgical history non-co ntributory 12/07/2015 Last Documented On 2 2:38PM ; [facility] Family History Includes: Family History addressed during this encounter Description Last Updated No significant family history 12/07/2015 Last Documented On 2 2:38PM ; [facility] Review of Systems Includes: Review of Systems from this encounter Systemic: Not feeling tired, no recent weight loss, and no recent weight gain. No edema. Head: No headache and no sinus pain. Eyes: Vision problems. No vision problems and no glaucomatous visual field defect. Otolaryngeal: No hearing loss and no tinnitus. No nasal symptoms. Cardiovascular: No chest pain or discomfort and no palpitations. Pulmonary: No daytime asthma symptoms, no cough, and no chronic cough. No wheezing. Gastrointestinal: No heartburn and no abdominal pain. Endocrine: No hot flashes and no muscle weakness. Hematologic: No easy bleeding and no tendency for easy bruising. Musculoskeletal: No lower back pain. No soft tissue swelling and no localized joint pain. Neurological: No dizziness, no convulsions, and no numbness. Psychological: No anxiety, no emotional lability, no depression, and no insomnia. Not crying for no reason. Skin: No dry skin, no rash, and no ulcers. Allergic and Immunologic: No complaint of seasonal allergic reaction. Reviewed on 06-22-2022 Mental Status Includes: Mental Status from this encounter Description No anxiety Functional Status Includes: Functional Status from this encounter No Functional Status Recorded Physical Exam Includes: Physical Exam from this encounter Allergies Includes: Active Allergies No Known Allergies Encounters Encounter Provider Location Date Check-In Time Check-Out Time Diagnosis Physician Specified Chente Dumont MD [facility] 06/22/20 1:49PM 2:56PM Insurance Includes: Active Insurance Policies Plan Name Member ID Group # Subscriber Relationship Effect marylou Dates 1 - [facility] Medicaid [id number] Michele Escobar Self 07/02/2022 - Unknown Clinical Notes Includes: Clinical Notes from this encounter * Progress note Date Encounter Last Documented by 06/22/2022 Physician Specified Last angi leslie on 06/22/2022; 3:41 PM, Chente Dumont MD; [facility], [facility] Active Problems & Conditions - Lower Back Pain Chief Complaint The Chief Complaint is: Back Pain from accident on 08/09/15. Referred Here Referred byNani Rodrigues History of Present Illness Michele Escobar is a 32 year old male. - Symptoms numbness/tingling in arms & fingers. - Allergy list reviewed - Problem list reviewed - Medication list reviewed - Previous history of new onset pain 08/09/2015 - Gradual onset - Sharp pain Symptoms - Stabbing - Pain is constant (100% of the time) - Pain is throbbing Please rate pain on scale of 1 - 10: 9 Previous Treatment: Chiropractor Medications used for this condition: Naproxen & Robaxin Current Medication - Naproxen 500 MG Tablet 0 days, 0 refills - Robaxin 500 MG Tablet 0 days, 0 refills - Vitamin B12 3000 MCG/ML Liquid 0 days, 0 refills Past Medical/Surgical History Reported: Immunization History: No recent immunization for flu and not for pneumococcal pneumonia. Past medical and surgical history non-contributory. Social History Yes, current smoker. Current diet: No recent change in diet. No recent change in diet. Caffeine use: Caffeine use. Tobacco use: Current smoker and smoking status: Current everyday smoker. Alcohol: Not using alcohol. Drug Use: Not using drugs. Habits: Exercising regularly. Allergies - No Known Allergies Family History No significant family history Review Of Systems Systemic: Not feeling tired, no recent weight loss, and no recent weight gain. No edema. Head: No headache and no sinus pain. Eyes: Vision problems. No vision problems and no glaucomatous visual field defect. Otolaryngeal: No hearing loss and no tinnitus. No nasal symptoms. Cardiovascular: No chest pain or discomfort and no palpitations. Pulmonary: No daytime asthma symptoms, no cough, and no chronic cough. No wheezing. Gastrointestinal: No heartburn and no abdominal pain. Endocrine: No hot flashes and no muscle weakness. Hematologic: No easy bleeding and no tendency for easy bruising. Musculoskeletal: No lower back pain. No soft tissue swelling and no localized joint pain. Neurological: No dizziness, no convulsions, and no numbness. Psychological: No anxiety, no emotional lability, no depression, and no insomnia. Not crying for no reason. Skin: No dry skin, no rash, and no ulcers. Allergic and Immunologic: No complaint of seasonal allergic reaction. Reviewed on 06-22-2022 Physical Findings - Vitals taken 06/22/2022 02:40 pm bb BP-Sitting R 152/97 mmHg Pulse Rate-Sitting 95 bpm Height 69 in Weight 142 lbs Body Mass Index 21 kg/m2 Body Surface Area 1.8 m2 Previous Tests Imaging: X-Ray: An X-ray was performed 08/2015. Therapy - Intervention and counseling on cessation of tobacco use. - Follow-up visit in one month. - Referral to physician. Counseling/Education - Health seminar on smoking cessation Notes This dictation was done with voice recognition software and may contain errors and omissions. patient is here with low back pain. Happened after he was getting up from his betzy chair is mostly back pain. He walks with a hunched over gait. He has good strength in both lower extremities. No long track findings. Sensations grossly intact. [id number] palpable pulses. MRI shows a no significant stenosis but a small annular tear of L5-S1. I recommend he try an epidural. Recommend stretching a program. He does not need surgery. We will see him back after the injection. Practice Management Use of tobacco assessment performed; No influenza immunization patient refused. Care Team - ADRIENNE RODRIGUES
--- OUTSIDE RECORDS SUMMARY | 2025-04-07 14:32 | XMS_ITS ---
Care Plan - [facility], [facility] Created on: April 07, 2025 Shawn Michele : 1990 Sex: Male Author Organization [facility] Address [address] [place] [address] Phone Care Team Providers Care Mophead Trimmer And Wrapper Name Role Phone SAV GLOVER, FRENCH Unavailable [phone] Chente Dumont MD Unavailable [phone]
--- OUTSIDE RECORDS SUMMARY | 2025-04-07 14:32 | XMS_ITS | Clinical Summary ---
Author Organization [facility] Address [address] [place] [address] Phone Care Team Providers Care Online Marketing Manager Name Role Phone Unavailable Primary Care Provider Unavailabl e Allergies No known active allergies Medications naproxen (NAPROSYN) 500 mg Oral Tablet Take 1 Tablet by mouth every 12 hours as needed for Pain for up to 12 doses. 12 Tablet 04/07/2024 Active Immunizations Immunization Administration Dates Next Due Tdap 08/09/2015 Social History Tobacco Use Types Packs/Day Years Used Date Smoking Tobacco: Every Day Cigarettes Alcohol Use Standard Drinks/Week Comments Not Currently 0 (1 standard drink = 0.6 oz pur e alcohol) Sex and Gender Information Value Date Recorded Sex Assigned at Not on file Legal Sex Male 2:12 PM EST Gender Identity Not on file Sexual Orientation Not on file Last Filed Vital Signs Vital Sign Reading Time Taken Comments Blood Pressure 104/65 04/07/2024 5:32 PM EDT Pulse 59 04/07/2024 5:31 PM EDT Temperature 37.1 C (98.7 F) 04/07/2024 2:09 PM EDT Respiratory Rate 14 04/07/2024 5:31 PM EDT Oxygen Saturation 98% 04/07/2024 5:30 PM EDT Inhaled Oxygen Concentration - - Weight 62.6 kg (138 lb) 08/09/2015 2:15 PM EST Height 177.8 cm (5' 10 ) 08/09/2015 2:15 PM EST Body Mass Index 19.8 08/09/2015 2:15 PM EST Plan of Treatment Health Maintenance Due Date Last Done Comments Annual Wellness Exam 1994 Pneumococcal Vaccine 0-49 (1 of 2 - PCV) 2010 COVID-19 Vaccine (1 - 2023-2 5 season) 2025 Influenza Vaccine (#1) 2025 DTaP/TDaP/Td (3 - Td or Tdap) 08/09/2025, 05/09/2005 Hepatitis B Vaccine Completed 09/01/2002, 03/27/2002, 02/14/2002 Meningococcal B Vaccine Aged Out No l onger eligible based on patient's age to complete this topic Insurance [facility] CHOICE PLUS [facility] ATTN: [place] [address] [facility] CHOICE PLUS
--- OUTSIDE RECORDS SUMMARY | 2025-04-07 14:32 | XMS_ITS | Clinical Summary ---
Author Organization [facility] Address [address] [place] [address] Phone Care Team Providers Care Auto Radio Mechanic Name Role Phone FRENCH ANG MD Unavailable [phone] Tim GLOVER, Chente Diggs Unavailable [phone] Reason for Visit and Chief Complaint Epidural Steroid Injection Problems Includes: Problems addressed during this encounter and other active Problems All Visits Onset Date Resolved Date Provider Condition S tatus Lower Back Pain 06/22/2022 Chente Dumont MD Act marylou Last Documented On 2 2:40PM ; [facility], [facility] Plan of Treatment No Plan of Treatment Recorded Assessments Includes: Assessments from this encounter No Assessments Recorded Medical Equipment - Implanted Devices Includes: Current Devices No Medical Equipment Recorded Medications Includes: Medications discussed during this encounter and other current Medications Current Medications (continue as prescribed) Vitamin B12 3000 MCG/ML Liquid 12/07/2015 Provider: Diagnosis: Last Documented On 6 2:44PM By Diana Rodriguez [facility], [facility] Naproxen 500 MG Tablet 12/07/2015 Provider: Diagnosis: Last Documented On 6 2:44PM By Diana Rodriguez [facility] Robaxin 500 MG Tablet 12/07/2015 Provider: Diagnosis: Last Documented On 6 2:45PM By Diana Bucriaga ; [facility], [facility] Medications Administered Includes: Administered Medications from [...] Location Date Check-In Time Check-Out Time Diagnosis Epidural Steroid Injection Chente Dumont MD 07/19/2022 2:58PM 11:59PM Insurance Includes: Active Insurance Policies Plan Name Member ID Group # Subscriber Relationship Effect marylou Dates 1 - [employer] Medicaid [id number] Michele Escobar Self 07/02/2022 - Unknown Clinical Notes Includes: Clinical Notes from this encounter No Clinical Notes Recorded
--- OUTSIDE RECORDS SUMMARY | 2025-04-07 14:32 | XMS_ITS | Clinical Summary ---
Author Organization [facility] , [facility] Address [address] [place] [address] Phone Care Team Providers Care Accounting Methods Analyst Name Role Phone FRENCH ANG MD Unavailable [phone] Tim GLOVER, Chente Diggs Unavailable [phone] Reason for Visit and Chief Complaint The Chief Complaint is: Back Pain from accident on 08/09/15 Problems Includes: Problems addressed during this encounter and other active Problems Current Visit Onset Date Resolved Date Provider Wil olson Status Lower Back Pain 06/22/2022 Chente Dumont MD Act marylou Last Documented On 2 2:40PM ; [facility], [facility] Plan of Treatment Patient was seen by myself Mike Ryan PA-C. Patient will follow up as needed for now we will release him back to full duty for today did tell him that it is possible that he come back he just needs to be cognizant of what he is doing and needs to work on a good core strengthening program offered a brochure some exercises but he says he does not need that he is also can begin working out the gym and that is reasonable to do for him too. - Last Documented On 02/14/2023 1:23PM ; [facility], [facility] Instructions to patient Intervention and counseling on cessation of tobacco use Last Documented On 3 1:10PM ; [facility], [facility] Assessments Includes: Assessments from this encounter Findings L5-S1 disc herniation - Last Documented On 02/14/2023 1:23PM ; [facility], [facility] Instructions Includes: Instructions from this encounter Instructions to patient Intervention and counseling on cessation of tobacco use Last Documented On 3 1:10PM ; [facility] Medical Equipment - Implanted Devices Includes: Current Devices No Medical Equipment Recorded Medications Includes: Medications discussed during this encounter and other current Medications Current Medications (continue as prescribed) Vitamin B12 3000 MCG/ML Liquid 12/07/2015 Provider: Diagnosis: Last Documented On 6 2:44PM By Diana Burcigaa ; [facility] Naproxen 500 MG Tablet 12/07/2015 Provider: Diagnosis: Last Documented On 6 2:44PM By Diana Burciaga ; [facility] Robaxin 500 MG Tablet 12/07/2015 Provider: Diagnosis: Last Documented On 6 2:45PM By Diana Burciaga ; [facility] Medications Administered Includes: Administered Medications from this encounter No Administered Medications Recorded Vital Signs Includes: Vital Signs from this encounter Vital Name 02/14/2023 01:09P Height (in) 69 Weight (lb) 142 Body Mass Index 21 Body Surface Area 1.8 Note: bb Last Documented: On 02/14/2023 1:09PM ; [facility] Results Includes: Results discussed during this encounter No Results Recorded For Specified Dates History of Present Illness Includes: History of Present Illness from this encounter HPI Michele Escobar is a 33 year old male. - Allergy list reviewed - Problem list reviewed - Medication list reviewed - Medication list reviewed - Previous history of new onset pain Injury is not work related or an automotive accident - Patient pain level from 1-10: 1 - No previous treatment. Patient is here today for follow-up of his L5-S1 disc herniation last saw him in August of this past year he was scheduled for surgery and then subsequently did not have it as he started feeling better. He was terminated from his position back in August she states also. 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 08/10/2022 Last Documented On 3 1:03PM ; [facility] Caffeine use 12/07/2015 Last Documented On 3 1:03PM ; [facility] Current smoker 12/07/2015 Last Documented On 3 1:03PM ; [facility], [facility] Exercising regularly 12/07/2015 Last Documented On 3 1:03PM ; [facility], [facility] No recent change in diet 12/07/2015 Last Documented On 3 1:03PM ; [facility], [facility] Not using alcohol 12/07/2015 Last Documented On 3 1:03PM ; [facility], [facility] Not using drugs 12/07/2015 Last Documented On 3 1:03PM ; [facility], [facility] Smoking status : Current everyday smoker 12/07/2015 Last Documented On 3 1:03PM ; [facility], [facility] Procedures and Surgical History Includes: Procedures from this encounter Procedures Code Diagnosis Performing Provider Service L ocation Service Date intervention and counseling on cessation of tobacco use 4000F Last Documented On 3 1:10PM ; [facility], [facility] use of tobacco assessment performed 1000F Last Documented On 3 1:03PM ; [facility], [facility] review of medications documented 1160F Last Documented On 3 1:10PM ; [facility], [facility] body mass index not documented system reason 300 8F Last Documented On 3 1:03PM ; [facility], [facility] an X-ray was performed 75275 Last Documented On 3 1:10PM ; [facility], [facility] history of an X-ray was performed 08/2015 86881 Last Documented On 3 1:03PM ; [facility], [facility] Medical History Includes: Medical History addressed during this encounter Description Last Updated No recent immunization for flu 2 Last Documented On 3 1:03PM ; [facility], [facility] No recent immunization for pneumococcal pneumonia 06/22/2022 Last Documented On 3 1:03PM ; [facility] Past medical and surgical history non-co ntributory 12/07/2015 Last Documented On 3 1:03PM ; [facility] Family History Includes: Family History addressed during this encounter Description Last Updated No significant family history 12/07/2015 Last Documented On 3 1:03PM ; [facility] Review of Systems Includes: Review of Systems from this encounter Systemic: Not feeling tired, no recent weight loss, and no recent weight gain. No edema. Head: No headache and no sinus pain. Eyes: Vision problems. No vision problems and no glaucomatous visual field defect. No Cataracts, no Glasses/Contacts, and no Glaucoma. Otolaryngeal: No hearing loss and no tinnitus. No nasal symptoms. Cardiovascular: No chest pain or discomfort, no palpitations, no Hypertension, and no High Cholesterol. Pulmonary: No daytime asthma symptoms, no cough, and no chronic cough. No wheezing. Gastrointestinal: No heartburn and no abdominal pain. No Indigestion, no Acid Reflux, no Peptic Ulcer, no GI Stomach Bleed, and no Ulcers. Endocrine: No hot flashes, no muscle weakness, no Diabetes, no Hypothyroid, and no Hyperthyroid. Hematologic: No easy bleeding, no tendency for easy bruising, and no Anemia. Musculoskeletal: No Arthritis and no lower back pain. No soft tissue swelling and no localized joint pain. Neurological: No dizziness, no convulsions, and no numbness. Psychological: No anxiety, no emotional lability, no depression, and no insomnia. Not crying for no reason. Skin: No dry skin. No Ulcers, no Scars, no rash, and no ulcers. Allergic and Immunologic: No complaint of seasonal allergic reaction. Reviewed on 02-14-2023 Mental Status Includes: Mental Status from this encounter Description No anxiety Functional Status Includes: Functional Status from this encounter No Functional Status Recorded Physical Exam Includes: Physical Exam from this encounter Allergies Includes: Active Allergies No Known Allergies Encounters Encounter Provider Location Date Check-In Time Check- Out Time Diagnosis Follow Up Mike Ryna PA-C [facility] 3 12:49PM 1:28PM Insurance Includes: Active Insurance Policies Plan Name Member ID Group # Subscriber Relationship Effect marylou Dates 1 - BS Medicaid [id number] Michele Escobar Self 07/02/2022 - Unknown Clinical Notes Includes: Clinical Notes from this encounter * Progress note Date Encounter Last Documented by 02/14/2023 Follow Up Last documented on 02/14/2023; 1:23 PM, Mike Ryan PA-C; [facility], [facility] Active Problems & Conditions - Lower Back Pain Chief Complaint The Chief Complaint is: Back Pain from accident on 08/09/15. Referred Here Referred by self. History of Present Illness Michele Escobar is a 33 year old male. - Allergy list reviewed - Problem list reviewed - Medication list reviewed - Medication list reviewed - Previous history of new onset pain Injury is not work related or an automotive accident - Patient pain level from 1-10: 1 - No previous treatment. Patient is here today for follow-up of his L5-S1 disc herniation last saw him in August of this past year he was scheduled for surgery and then subsequently did not have it as he started feeling better. He was terminated from his position back in August she states also. 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 No Cataracts, no Glasses/Contacts, and no Glaucoma. Otolaryngeal: No hearing loss and no tinnitus. No nasal symptoms. Cardiovascular: No chest pain or discomfort, no palpitations, no Hypertension, and no High Cholesterol. Pulmonary: No daytime asthma symptoms, no cough, and no chronic cough. No wheezing. Gastrointestinal: No heartburn and no abdominal pain. No Indigestion, no Acid Reflux, no Peptic Ulcer, no GI Stomach Bleed, and no Ulcers. Endocrine: No hot flashes, no muscle weakness, no Diabetes, no Hypothyroid, and no Hyperthyroid. Hematologic: No easy bleeding, no tendency for easy bruising, and no Anemia. Musculoskeletal: No Arthritis and no lower back pain. No soft tissue swelling and no localized joint pain. Neurological: No dizziness, no convulsions, and no numbness. Psychological: No anxiety, no emotional lability, no depression, and no insomnia. Not crying for no reason. Skin: No dry skin. No Ulcers, no Scars, no rash, and no ulcers. Allergic and Immunologic: No complaint of seasonal allergic reaction. Reviewed on 02-14-2023 Physical Findings - Vitals taken 02/14/2023 01:09 pm bb Height 69 in Weight 142 lbs Body Mass Index 21 kg/m2 Body Surface Area 1.8 m2 Patient cannot quite bend over and touch his toes negative straight leg raise bilaterally he is able to walk on his toes he has 5 out of 5 EHL tibialis anterior quadricep strength bilaterally Assessment L5-S1 disc herniation Previous Tests Imaging: X-Ray: An X-ray was performed 08/2015. An X-ray was performed. Available previous imaging studies were reviewed Available previous history reviewed Therapy - Intervention and counseling on cessation of tobacco use. Plan Patient was seen by myself Mike Ryan PA-C. Patient will follow up as needed for now we will release him back to full duty for today did tell him that it is possible that he come back he just needs to be cognizant of what he is doing and needs to work on a good core strengthening program offered a brochure some exercises but he says he does not need that he is also can begin working out the gym and that is reasonable to do for him too. Notes This dictation was done with voice recognition software and may contain errors and omissions. Practice Management Use of tobacco assessment performed Review of medications documented; Body mass index not documented system reason. Care Team - FRENCH ANG MD - [employer]S COUNTER SALES PERSON Health Reminders - Assess BMI satisfied 02/14/2023. - Assess Tobacco Use satisfied 08/10/2022. - Smoking & Tobacco Cessation Intervention and Counseling satisfied 02/14/2023.
--- OUTSIDE RECORDS SUMMARY | 2025-04-07 14:32 | XMS_ITS | Clinical Summary ---
Author Organization [facility] , [facility] Address [address] [place] [address] Phone Care Team Providers Care Transportation Attendant Name Role Phone FRENCH ANG MD Unavailable [phone] Tim GLOVER, Chente Diggs Unavailable [phone] Reason for Visit and Chief Complaint The Chief Complaint is: Back Pain from accident on 08/09/15 Problems Includes: Problems addressed during this encounter and other active Problems Current Visit Onset Date Resolved Date Provider Wil olson Status Lower Back Pain 06/22/2022 Chente Dumont MD Act marylou Last Documented On 2 2:40PM ; [facility], [facility] Plan of Treatment Instructions to patient Intervention and counseling on cessation of tobacco use Last Documented On 3 8:44AM ; [facility], [facility] Education and Decision Aids were provided during visit for: Health seminar on smoking ce ssation Last Documented On 3 8:44AM ; [facility], [facility] Assessments Includes: Assessments from this encounter No Assessments Recorded Instructions Includes: Instructions from this encounter Instructions to patient Intervention and counseling on cessation of tobacco use Last Documented On 3 8:44AM ; [facility], [facility] Education and Decision Aids were provided during visit for: Health seminar on smoking ce ssation Last Documented On 3 8:44AM ; [facility], [facility] Medical Equipment - Implanted Devices Includes: Current Devices No Medical Equipment Recorded Medications Includes: Medications discussed during this encounter and other current Medications Current Medications (continue as prescribed) Vitamin B12 3000 MCG/ML Liquid 12/07/2015 Provider: Diagnosis: Last Documented On 6 2:44PM By Diana Burciaga ; [facility], [facility] Naproxen 500 MG Tablet 12/07/2015 Provider: Diagnosis: Last Documented On 6 2:44PM By Diana Burciaga ; [facility], [facility] Robaxin 500 MG Tablet 12/07/2015 Provider: Diagnosis: Last Documented On 6 2:45PM By Diana Burciaga ; [facility], [facility] Medications Administered Includes: Administered Medications from this encounter No Administered Medications Recorded Results Includes: Results discussed during this encounter No Results Recorded For Specified Dates History of Present Illness Includes: History of Present Illness from this encounter HPI Michele Escobar is a 32 year old male. - Allergy list reviewed - Problem list reviewed - Medication list reviewed - Medication list reviewed Social History Description Last Updated Tobacco use 08/10/2022 Last Documented On 3 5:25PM ; [facility], [facility] No recent change in diet 08/10/2022 Last Documented On 3 5:25PM ; [facility], [facility] Yes, current smoker. 08/10/2022 Last Documented On 3 5:25PM ; [facility], [facility] Caffeine use 12/07/2015 Last Documented On 3 8:44AM ; [facility], [facility] Exercising regularly 12/07/2015 Last Documented On 3 8:44AM ; [facility], [facility] Not using alcohol 12/07/2015 Last Documented On 3 8:44AM ; [facility], [facility] Not using drugs 12/07/2015 Last Documented On 3 8:44AM ; [facility], [facility] Smoking Status Unknown Procedures and Surgical History Includes: Procedures from this encounter Procedures Code Diagnosis Performing Provider Service L ocation Service Date intervention and counseling on cessation of tobacco use 4000F Last Documented On 3 8:44AM ; [facility], [facility] use of tobacco assessment performed 1000F Last Documented On 3 8:44AM ; [facility] body mass index not documented system reason 300 8F Last Documented On 3 5:24PM ; [facility], [facility] history of an X-ray was performed 08/2015 [id number] Last Documented On 3 8:44AM ; [facility] Medical History Includes: Medical History addressed during this encounter Description Last Updated No recent immunization for flu 2 Last Documented On 3 8:44AM ; [facility] No recent immunization for pneumococcal pneumonia 06/22/2022 Last Documented On 3 8:44AM ; [facility] Past medical and surgical history non-co ntributory 12/07/2015 Last Documented On 3 8:44AM ; [facility] Family History Includes: Family History addressed during this encounter Description Last Updated No significant family history 12/07/2015 Last Documented On 3 8:44AM ; [facility] Review of [...] complaint of seasonal allergic reaction. Reviewed on 08-10-22 Mental Status Includes: Mental Status from this encounter Description No anxiety Functional Status Includes: Functional Status from this encounter No Functional Status Recorded Physical Exam Includes: Physical Exam from this encounter No Physical Exam Recorded Allergies Includes: Active Allergies No Known Allergies Encounters Encounter Provider Location Date Check-In Time Check- Out Time Diagnosis Follow Up Chente Dumont MD [facility] 3 8:37AM 9:57AM Insurance Includes: Active Insurance Policies Plan Name Member ID Group # Subscriber Relationship Effect marylou Dates BS Medicaid [id number] Michele Escobar Self 07/02/2022 - Unknown Clinical Notes Includes: Clinical Notes from this encounter * Progress note Date Encounter Last Documented by 08/10/2022 Follow Up Last documented on 08/10/2022; 5:25 PM, Chente Dumont MD; [facility], [facility] Active Problems & Conditions - Lower Back Pain Chief Complaint The Chief Complaint is: Back Pain from accident on 08/09/15. Referred Here Referred by self. History of Present Illness Michele Escobar is a 32 year old male. - Allergy list reviewed - Problem list reviewed - Medication list reviewed - Medication list reviewed Current Medication - Naproxen 500 MG Tablet [...] Current diet: No recent change in diet. Caffeine use: Caffeine use. Tobacco use: Tobacco use. Alcohol: Not using alcohol. Drug Use: Not [...] complaint of seasonal allergic reaction. Reviewed on 08-10-22 Previous Tests Imaging: X-Ray: An X-ray was performed 08/2015. Available previous imaging studies were reviewed Available previous history reviewed Therapy - Intervention and counseling on cessation of tobacco use. Counseling/Education - Health seminar on smoking cessation Notes This dictation was done with voice recognition software and may contain errors and omissions. Patient is here for follow-up of his back and right buttock and leg discomfort. He does have a positive straight leg raise. Pain is worse he does have a disc herniation at L5-S1. Epidurals did not give him lasting relief. 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 That is when it bothers him the most. We discussed the risk benefits alternatives of a minimally invasive S1 nerve root decompression and he wishes to proceed Practice Management Use of tobacco assessment performed; Body mass index not documented system reason. Care Team - ADRIENNE RODRIGUES Health Reminders - Assess Tobacco Use satisfied 08/10/2022. - Smoking & Tobacco Cessation Intervention and Counseling satisfied 08/10/2022. - Smoking & Tobacco Cessation Strategies satisfied 08/10/2022.
--- NOTE | 2025-04-07 14:37 | US_ITS ---
FINAL REPORT TECHNIQUE: Sonographic images of the testicles and scrotum were obtained in the longitudinal and transverse planes. CLINICAL HISTORY: RT TESTICULAR PAIN FINDINGS: The right testicle measures 3.3 x 2.3 x 3.1 centimeters. There is no intratesticular mass. The epididymis is within normal limits. No extratesticular mass is identified. The left testicle measures 4.3 x 2.2 x 2.6 centimeters. There is no intratesticular mass. The epididymis is within normal limits. No extratesticular mass is identified. There is a small left varicocele. Color imaging reveals no evidence of testicular torsion. IMPRESSION: No evidence of intratesticular mass or testicular torsion. Small left varicocele. Reviewed, Interpreted and Dictated by Rosa Ramirez MD Transcribed by Giovanna Novak Authenticated and [facility]
== END 2025-04-07 23:59 | disposition home or self-care (01) ==
LOC: RAD 14:30
PROVIDERS: PCP Nurse Practitioner Family; Visit Provider Nurse Practitioner Family
DX: I86.1 Scrotal varices (principal)
CPT/HCPCS: 76870

== ENCOUNTER 2025-05-06 10:00 | Outpatient (CLI) | payer OTHER, SELFPAY ==
[2025-05-06 20:10] LABS: Coronavirus 19, PCR Not Detected (NotDetected); Influenza A, PCR Not Detected (NotDetected); Influenza B, PCR Not Detected (NotDetected)
--- OUTSIDE RECORDS SUMMARY | 2025-05-08 10:02 | XMS_ITS | Clinical Summary ---
Author Organization [facility] Address [address] [place] [address] Phone Care Team Providers Care Hoop Rolls Operator Name Role Phone Unavailable Primary Care Provider [...] - PCV) 2010 COVID-19 Vaccine (1 - 2024-2 6 season) 2025 Influenza Vaccine (#1) 2025 DTaP/TDaP/Td (3 - Td or Tdap) 08/09/2025, 05/09/2005 Hepatitis B Vaccine Completed 09/01/2002, 03/27/2002, 02/14/2002 Meningococcal B Vaccine Aged Out No l onger eligible based on patient's age to complete this topic Insurance [facility] ATTN: [place] [address] [facility] CHOICE PLUS
== END 2025-05-06 23:59 ==
LOC: LAB.DROPOF 05-08 10:00
PROVIDERS: PCP Internal Medicine Adolescent Medicine; Visit Provider Student in an Organized Health Care Education/Training Program
DX: R19.7 Diarrhea, unspecified (principal)
CPT/HCPCS: 87636

== ENCOUNTER 2025-05-20 12:12 | Outpatient (CLI) | payer OTHER, SELFPAY ==
--- NOTE | 2025-05-20 12:15 | XR_ITS ---
FINAL REPORT CLINICAL HISTORY: IRRITABLE BOWEL SYNDROME WITH DIARRHEA COMPARISON: None FINDINGS: SINGLE VIEW ABDOMEN A single view of the abdomen was obtained. There is a nonobstructive bowel gas pattern. There are no abnormally dilated loops of small bowel. No abnormal calcifications are identified. IMPRESSION: Nonobstructive bowel gas pattern. Reviewed, Interpreted and Dictated by Michael Hilario MD Transcribed by Crystal Masters Authenticated and [facility]
--- OUTSIDE RECORDS SUMMARY | 2025-05-20 13:07 | XMS_ITS | Clinical Summary ---
Author Organization [facility] Address [address] [place] [address] Phone Care Team Providers Care Wood Type Cutter Name Role Phone Unavailable Primary Care Provider [...] patient's age to complete this topic Insurance [facility] CHOICE PLUS [facility] ATTN: [place] [place] [address] [facility] CHOICE PLUS
--- OUTSIDE RECORDS SUMMARY | 2025-05-20 13:07 | XMS_ITS ---
Author Organization Unknown ENCOUNTERS Encounter Performer Location Date Diagnosis Diagnosis Status Outpatient [facility] [address] [facility] [address] [place] [address] [id number] [place] Emergency [facility] [address] [facility] [address] [place] [address] [id number] Pre Admit [facility] [address] [facility] [address] [place] [address] [id number] Emergency [facility] [address] [facility] [address] [place] [address] [id number] [place] Pre Admit [facility] [address] [facility] [address] [place] [address] [phone] Emergency [facility] [address] [facility] [address] [place] [address] [id number] [place] Pre [facility]mit [facility] [address] [place] [facility] [address] [place] [address] [id number] Pre Admit [facility] [address] [facility] [address] [place] [address] [id number] Emergency [facility] [address] [facility] [address] [place] [address] [id number] [place] Emergency [facility] [address] [place] [facility] [address] [place] [address] [id number] [place] Pre [facility]mit [facility] [address] [place] [facility] [address] [place] [address] [id number] Emergency Mike Henderson (ED) [facility] [address] [place] [facility] [address] [place] [address] [id number] [place] Emergency [facility] [address] [facility] [address] [place] [address] [id number] [place] Emergency [facility] [address] [facility] [address] [place] [address] [id number] [place] Emergency [facility] [address] [facility] [address] [place] [address] [id number] [place] Emergency [facility] [address] [facility] [address] [place] [address] [phone] [place] Emergency [place] [id number] [facility] [address] [place] [address] [phone] [place] Emergency [place] [id number] [facility] [address] [place] [address] [phone] [place] *Note: Encounters from your own facility or health system may be excluded. Allergies, Adverse Reactions, Alerts Allergen Type Severity Identification Date Medications Name Date Quantity Days Supplied GPI Number
== END 2025-05-20 23:59 | disposition home or self-care (01) ==
LOC: RAD 12:13
PROVIDERS: PCP Internal Medicine Adolescent Medicine; Visit Provider Nurse Practitioner Family
DX: K58.0 Irritable bowel syndrome with diarrhea (principal); R15.9 Full incontinence of feces; R93.3 Abnormal findings on diagnostic imaging of other parts of digestive tract
CPT/HCPCS: 74018